=== PATIENT | female | born 1950 | race Caucasian/White ===

== ENCOUNTER 2018-06-10 11:30 | Outpatient (RCR) | payer OTHER, MEDICARE, SELFPAY ==
--- NOTE | 2018-05-28 15:27 | HP.PTEVAL ---
Patient's Visit Information TOBI HOSKINS is a 68 year old F referred to Physical Therapy by RIK ROMERO with a diagnosis of Lumbar Pain. Date of Evaluation: 05/28/18 Physical Therapist: Sandra Lacey - Visit Plan Frequency: 2x /Week Duration: 6 Weeks Plan: Focus on core s/s and movement- manual as needed - Subjective Subjective: Patient reports that she has been going to pain management for years- she is always told that she is really tight. Initial back injury was years ago low back- ended up having a fusion in 2004- through [employer]. 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 The right leg was affected and went to ER- went through therapy, injections and finally had a spinal fusion. It helped a lot- not perfect but is much better- is not dragging her right leg. Agg: cold damp weather, sitting to long, stand to long, lay to long (60 minutes). Worst: 9/10 Best: 5/10 Eases: TENS unit and a heating pad a lot, changing positions. Pain is located in the low back and radiates down the right leg to the knee. Describes pain as dull and achy- N/T down the right leg. Feels like her foot or toes are tingly- N/T comes and goes. No changes in mireille or bladder-Sleep: medication but it only works for about 4 hours then she gets up and goes to the bathroom every 2 hours. 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 PMhx/Meds:no changes- see scanned in chart. - Objective Posture: Fh, RS, increased kyphosis- patient can correct with verbal and tactile cues but does not maintain. Gait: no deviation noted- good arm swing and trunk rotation. Stairs: asc/desc 8 reip with 1 HR. HR/TR: able bilaterally with UE A for balance. SLS: 4 seconds on the left and 3 seconds on the right before UE A required. ROM: Lumbar- flexion: to mid thigh, Extn: decreased by 75%, SB: decreased by 50%, Rot: decreased by 50% reports pain in all ranges. Hip: flexion: 90 degrees, Abd/Ir/ER: WNL, Knee: WNL, Ankle: WNL. Sensation/Reflex: WNL. Strength: Ankle: 4+/5, Knee: 5/5, Hip: 4-5/ throughout with pain, Core: poor. Flex: HS: severe, Gastroc: moderate. Special Test: Slump positive on right. Palpation: tender along paraspinals of the lumbar spine into the gluts bilaterally - Goals Goal 1:: Patient will be I with HEP and progression Goal Time Frame: 4-6 Weeks Goal 2:: Patient will maintain proper posture t/o tx session Goal Time Frame: 4-6 Weeks Goal 3:: Patient will report 3/10 pain for 1 week Goal Time Frame: 4-6 Weeks - Rehabilitation Potential Physical Therapy Diagnosis: Patient presents with hypomobility- she has decreased ROM, strength and muscular endurance leading to pain with ADL's. Rehabilitation Potential: Fair - Anticipated Interventions Patient/Client Instruction: Educate patient on: Benefits of Fitness Program Therapeutic Exercise to Include: Strength training, Endurance training, Balance training, Agility training, Body mechanics, Postural training, Flexibilty training, Gait and locomotor training, Passive ROM, Active ROM, Dynamic Lumbar Stabilization, Scapular Strength/Stabilization For the Purpose of:: To improve muscle performance and motor function TENS: No - Has one at home Cryotherapy (ice pack, ice massage): Yes Thermo therapy (hot pack): Yes Ultrasound (thermal/non thermal): No - Lumbar Fusion 2004 Thank you for the opportunity to evaluate your patient. For Medicare and Medicare HMO plans, please review the plan of care and approve it. It will need to be FAXED BACK to us at [phone] for Medicare purposes. Please let me know if there are questions or concerns regarding this plan of care. Physician Signature: Date:
--- NOTE | 2018-07-18 10:52 | HP.PT.NRP ---
HP - Discharge Summary (1) - Patient Information TOBI HOSKINS was seen in my office for initial evaluation on 05/28/18. The following Plan of Care was established for this patient: Initial Frequency: 2x /Week Initial Duration: 6 Weeks - Anticipated Interventions Patient/Client Instruction: Educate patient on: Benefits of Fitness Program Therapeutic Exercise to Include: Strength training, Endurance training, Balance training, Agility training, Body mechanics, Postural training, Flexibilty training, Gait and locomotor training, Passive ROM, Active ROM, Dynamic Lumbar Stabilization, Scapular Strength/Stabilization For the Purpose of:: To improve muscle performance and motor function TENS: No - Has one at home Cryotherapy (ice pack, ice massage): Yes Thermo therapy (hot pack): Yes Ultrasound (thermal/non thermal): No - Lumbar Fusion 2004 This patient was last seen in our office . Pertinent comments regarding their Physical therapy will appear below: Patient cancelled all PT appts and plans to do massage therapy instead. At this point I will be discontinuing this patient from physical therapy. I would be happy to see this patient again in the future if found appropriate by the physician. Thank you! LINDSEY PoeT
--- NOTE | 2018-07-18 16:16 | MASS.EVAL ---
Massage Therapy Evaluation: Initial Evaluation Date: 06/06/2018 SUBJECTIVE: Marjorie is a 68 year old male who was referred to the [facility] facility for a massotherapy evaluation by Dr. Morgan with the diagnosis of low back pain. Marjorie presents today with the symptoms of tension and pain in his mid-low back from a previous injury. she also complains of pain that goes to her hip and into legs. She reports having the increased low back symptoms for a few weeks and that the weather effects the pain. She also reports some days are worse then others. OBJECTIVE: Upon observation the patient to have poor posture in sitting and standing. After examination and palpation I found Marjorie to have very high muscle tension with tenderness and myofascial restrictions in her lumbar paraspinals. Her QL?s, hips including glute medius and minimus all were very tight with fascial restrictions, tender points and trigger points. The first treatment consisted of a 30 minute massage to her lumbar area with myofascial release, muscle stripping and trigger point compression techniques. ASSESSMENT: I feel that Marjorie is a good candidate for massotherapy at this time. She had a favorable response to the first treatment with slight reduction in her muscle aches, pain and tension. She easily relaxed and was able to tolerate moderate pressure PLAN: The plan of care was reviewed with the patient. The patient is to be seen 2-3 times a week till 07/15/18.
--- NOTE | 2018-07-18 16:29 | DS.PCM_ITS ---
Massage Therapy Discharge Summary: Discharge Date: 07/18/2018 Marjorie was seen for a massotherapy evaluation on 06/06/2018 with the diagnosis of low back pain. She was treated with one sessions of massage therapy consisting of moderate pressure soft tissue techniques, myofascial release and trigger point compression to her lumbar region and hips. Marjorie responded well to the therapy by reporting decreased tension in her lower back and hips. Her goals for therapy were not met throughout the treatment sessions due to not scheduling more appointments within the time frame given. At this time this patient is being discharged from our care at [facility] facility.
== END 2018-06-10 19:00 | disposition home or self-care (01) ==
LOC: PT 11:30
PROVIDERS: Family Provider Internal Medicine; PCP Internal Medicine
DX: M51.36 Other intervertebral disc degeneration, lumbar region (principal)
CPT/HCPCS: 97110; 97124; 97162

== ENCOUNTER 2018-06-16 13:24 | Emergency (ER) | payer MEDICARE, SELFPAY ==
[2018-06-16 13:25] VITALS: BP 152/75; PULSE 96; RESP 16; TEMP 37.1; O2SAT 95; BMI 27.4
--- NOTE | 2018-06-16 13:50 | VDLE_ITS ---
Reason For Study: LLE Pain RIGHT LEFT CFV is compressible, spontaneous, phasic, GSV is normal. competent and demonstrates normal CFV is compressible, spontaneous, phasic, augmentation. competent, and demonstrates normal Procedure augmentation. Exam performed portable in ED. FV is compressible, spontaneous, phasic, A preliminary report was called and/or faxed competent and demonstrates normal to Dr. Alexander. augmentation. POP V is compressible, spontaneous, phasic, competent and demonstrates normal augmentation. T/P Trunk is compressible. PTV is compressible. LT PerV is compressible. <> Interpretation Summary Deep veins of the left lower extremity are patent and compressible segmentally. There is no evidence of left lower extremity deep vein thrombosis. Valvular competence appears intact within the proximal deep venous system on the left . The left greater saphenous vein appears patent and compressible segmentally. Ordering Physician: Marshal Alexander Referring Physician: Preethi Pulido Performed By: Keri Albarado, JEO, RVT
--- NOTE | 2018-06-16 13:53 | ED.VISSUMM ---
- ER Visit Summary Date of Service: 06/16/18 Chief Complaint: Atraumatic left thigh pain. History of Present Illness: The patient is a 68 F history of reflux and hypertension. Patient is never had any surgery to her left lower extremity. She denies any recent trauma. For the last 6 weeks he has had several episodes of intermittent thigh pain. Denies any fever, redness or swelling. No calf pain or calf swelling. No numbness or tingling. She has chronic back pain but it is no worse. Patient is never had a DVT or PE in the past. She denies any recent travel, surgery, immobilization. No chest pain or shortness of breath. Physical Examination: Well-appearing female. Vital signs are stable afebrile. Pulse ox 95% on room air no signs of hypoxia. H EENT exam unremarkable. Neck nontender no lymphadenopathy. Lungs clear to auscultation bilaterally. Heart regular rhythm no murmur. Rate about 90. Abdomen soft nontender. Normal bowel sounds no peritoneal signs. Patient is moving all 4 extremities. Neurovascular intact. Equal symmetrical radial pulses. Palpable DP pulse. Left calf is nontender, no edema nor cords. She has full flexion-extension of the left hip, knee and ankle. Dorsi plantar flexion intact. Normal sensation. The left thigh has unremarkable appearance. Is not specifically tender. There is no bony deformity. No redness or warmth. No swelling or cords. Test Results: Noninvasive studies left lower extremity shows no blood clot. Emergency Department Course and Treatment: Discharge home. Follow-up with primary care physician. If not improving may need further imaging studies. Vista like there is been no trauma and no other concerning factors x-rays are unnecessary to Treatment Plan: Tylenol and/or Motrin for pain. Disposition: Discharge Impression: Acute left thigh pain of uncertain etiology This note was generated with shenzhoufu dictation software. It may contain incorrect words, spelling, and punctuation that were not noted in review of the chart prior to signing ED Disposition - Plan for ED Patient: Chief Complaint: Lower Extremity Injury Referrals: Preethi Pulido MD [Primary Care Provider] -
--- NOTE | 2018-06-16 15:04 | ED.DEP ---
ED Disposition - Plan for ED Patient: Disposition: Home or Assisted Living Chief Complaint: Lower Extremity Injury Referrals: Preethi Pulido MD [Primary Care Provider] - 1 Week if not improving Additional Instructions: Ultrasound your leg today was normal. No signs of any blood clots. Tylenol and/or Motrin for pain. Follow-up with your doctor if not improving may need to do other tests.
[2018-06-16] MEDS: HYDROcodone Bitartrate/Apap 5/325 Tablet PO (15:23)
--- OUTSIDE RECORDS SUMMARY | 2018-07-29 11:16 | XMS RPT_ITS ---
:1950 Author Organization OH[facility] Care Team Providers Name Role Phone Talampas, Cy Primary Care Unavailable Marshal Alexander Attending Unavailable RAEANN GARCIA Attending Unavailable RAEANN GARCIA Referring Unavailable Talampas, Cy Primary Care Unavailable MORGAN VILLELA Admitting Unavailable MORGAN VILLELA Attending Unavailable LAURA NUNEZ (EXECUTIVE DIRECTOR) Referring Unavailable LAURA NUNEZ (EXECUTIVE DIRECTOR) Attending Unavailable MORGAN VILLELA Referring Unavailable TALAMPAS, CY D Referring Unavailable TALAMPAS, CY D Attending Unavailable TALAMPAS, CY D Referring Unavailable TALAMPAS, CY D Referring Unavailable NEYHART FREDO COLEMANRE Attending Unavailable NEYHART COLEMAN, SONIA Referring Unavailable NEYHART COLEMAN, SONIA Attending Unavailable NEYHART COLEMAN, SONIA Referring Unavailable NEYHART COLEMAN, SONIA Referring Unavailable Hussain Lawton Attending Unavailable Talampas, Cy Primary Care Unavailable Hussain Lawton Attending Unavailable Talampas, Cy Primary Care Unavailable Hussain Lawton Attending Unavailable Talampas, Cy Primary Care Unavailable Hussain Lawton Attending Unavailable Talampas, Cy Primary Care Unavailable Hussain Lawton Attending Unavailable Talampas, Cy Primary Care Unavailable PROBLEMS PROBLEMS DATE TYPE CONDITION / CODE ATTENDING STATUS SOURCE 06/16/2018 Unknown M51.36 - Other RAEANN GARCIA Active [place] intervertebral disc Community degeneration, lumbar Hospital region / Repository M51.36(ICD-10) 05/03/2018 Active Encounter for NA Active [place] immunization / [facility] Main Z23(ICD-10) [place] Repository 04/22/2018 Active Encounter for NA Active [place] screening mammogram Clinic Main for malignant [place] neoplasm of breast / Repository Z12.31(ICD-10) 2018 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 [place] (current) drug Clinic Main therapy / [place] Z79.899(ICD-10) Repository 2018 Active Encounter for other NA Active [place] specified special Clinic Main examinations / [place] Z01.89(ICD-10) Repository 2018 Active Disorder of arteries NA Active [place] and arterioles, Clinic Main unspecified / [place] I77.9(ICD-10) Repository 11/22/2017 Admitting Unknown / JeredHussain Active [facility] Medical diagnosis UNK(Unknown) [facility] [place] Repository 07/02/2017 Active Gastro-esophageal VILLELA, Active [place] reflux disease [facility] Main without esophagitis [place] / K21.9(ICD-10) Repository 07/02/2017 Active Personal history of VILLELA, Active [place] colonic polyps / [facility] Main Z86.010(ICD-10) [place] Repository PROCEDURES PROCEDURES No Procedure Records FoundRESULTS RESULTS HISTORY PHYSICAL Observed: 07/07/2018 Status: COMPLETED Source: [place] 3:37 PM [facility]INIC [facility]IN [facility] REPOSITORY HNO ID: [id number] Author: Moriah aGrdner (Pa) Service: (none) Author Type: Physician Cooker Cleaner Type: HANDP Filed: 07/07/2018 3:38 PM Note Text: Pt's surgery changed to [facility]. No PACC needed. Moriah Gardner PA-C Electronically Signed VENOUS DUPLEX LOWER Observed: 06/18/2018 Status: F Source: [place] EXTREMITY 8:33 AM [facility] REPOSITORY [facility] Cardiovascular Services [address] [place] [address] Venous Duplex US, Unilateral 06/16/18 1405 MR#: [id number] Acct: [id number] Name: MARJORIE HOSKINS Rep #: [id number] : 1950 68 From: Ion You MD Attending Dr: Status: DEP ER Ordering Dr: Marshal Alexander MD Date: 06/16/18 Location: ED Sex: F C Admitted: Reason For Study: LLE Pain RIGHT LEFT CFV is compressible, spontaneous, phasic, GSV is normal. competent and demonstrates normal CFV is compressible, spontaneous, phasic, augmentation. competent, and demonstrates normal Procedure augmentation. Exam performed portable in ED. FV is compressible, spontaneous, phasic, A preliminary report was called and/or faxed competent and demonstrates normal to Dr. Alexander. augmentation. POP V is compressible, spontaneous, phasic, competent and demonstrates normal augmentation. T/P Trunk is compressible. PTV is compressible. LT PerV is compressible. <> Interpretation Summary Deep veins of the left lower extremity are patent and compressible segmentally. There is no evidence of left lower extremity deep vein thrombosis. Valvular competence appears intact within the proximal deep venous system on the left . The left greater saphenous vein appears patent and compressible segmentally. Ordering Physician: Marshal Alexander Referring Physician: Cy Pulido Performed By: Keri Albarado, JOE, RVT 06/18/18 0833 Date Ion You MD CC: Marshal Alexander MD; Cy Pulido MD Date Dictated: 06/16/18 1405 Date Transcribed: 06/18/18 08 Lease Picker: Signed DISCHARGE INSTRUCTION Observed: 06/16/2018 Status: F Source: [place] 5:03 PM [facility] REPOSITORY [facility] Medical Records Department [address] [place] [address] Discharge Instruction 06/16/18 1504 MR#: [id number] Acct: [id number] Name: MARCO HOSKINSORAFranchesca Redman Rep #: [id number] : 1950 68 From: Marshal Alexander MD PCP: Cy Pulido MD Status: DEP ER ED Disposition - Plan for ED Patient: Disposition: Home or Assisted Living Chief Complaint: Lower Extremity Injury Referrals: Cy Pulido MD [Primary Care Provider] - 1 Week if not improving Additional Instructions: Ultrasound your leg today was normal. No signs of any blood clots. Tylenol and/or Motrin for pain. Follow-up with your doctor if not improving may need to do other tests. What to do if you have Problems For any increased pain, shortness of breath, bleeding, nausea or vomiting, chest pain, or any unexpected problems, contact your Primary Care Provider. Call [facility] ([phone]) or report to the closest Emergency Room. Call 911 if necessary. 06/16/18 1703 <Electronically signed by Marshal Alexander MD> Date Marshal Alexander MD Cosigner Signature (If Indicated): Date CC: Cy Pulido MD EMERGENCY DEPARTMENT Observed: 06/16/2018 Status: F Source: [place] SUMMARY 5:03 PM [facility] REPOSITORY [facility] Medical Records Department [address] [place] [id number] Emergency Department Summary 06/16/18 1353 MR#: [id number] Acct: [id number] Name: MARJORIE HOSKINS Rep #: [id number] : 1950 68 From: Marshal Alexander MD PCP: Cy Pulido MD Status: [facility] ER - ER Visit Summary Date of Service: 06/16/18 Chief Complaint: Atraumatic left thigh pain. History of Present Illness: The patient is a 68 F history of reflux and hypertension. Patient is never had any surgery to her left lower extremity. She denies any recent trauma. For the last 6 weeks he has had several episodes of intermittent thigh pain. Denies any fever, redness or swelling. No calf pain or calf swelling. No numbness or tingling. She has chronic back pain but it is no worse. Patient is never had a DVT or PE in the past. She denies any recent travel, surgery, immobilization. No chest pain or shortness of breath. Physical Examination: Well-appearing female. Vital signs are stable afebrile. Pulse ox 95% on room air no signs of hypoxia. H EENT exam unremarkable. Neck nontender no lymphadenopathy. Lungs clear to auscultation bilaterally. Heart regular rhythm no murmur. Rate about 90. Abdomen soft nontender. Normal bowel sounds no peritoneal signs. Patient is moving all 4 extremities. Neurovascular intact. Equal symmetrical radial pulses. Palpable DP pulse. Left calf is nontender, no edema nor cords. She has full flexion- extension of the left hip, knee and ankle. Dorsi plantar flexion intact. Normal sensation. The left thigh has unremarkable appearance. Is not specifically tender. There is no bony deformity. No redness or warmth. No swelling or cords. Test Results: Noninvasive studies left lower extremity shows no blood clot. Emergency Department Course and Treatment: Discharge home. Follow-up with primary care physician. If not improving may need further imaging studies. [place] like there is been no trauma and no other concerning factors x-rays are unnecessary to Treatment Plan: Tylenol and/or Motrin for pain. Disposition: Discharge Impression: Acute left thigh pain of uncertain etiology This note was generated with [employer] dictation software. It may contain incorrect words, spelling, and punctuation that were not noted in review of the chart prior to signing ED Disposition - Plan for ED Patient: Chief Complaint: Lower Extremity Injury Referrals: Cy Pulido MD [Primary Care Provider] - What to do if you have Problems For any increased pain, shortness of breath, bleeding, nausea or vomiting, chest pain, or any unexpected problems, contact your Primary Care Provider. Call [facility] ([phone]) or report to the closest Emergency Room. Call 911 if necessary. 06/16/18 6382 <Electronically signed by Marshal Alexander MD> Date Marshal Alexander MD Cosigner Signature (If Indicated): Date CC: Cy Pulido MD PROGRESS Observed: 06/04/2018 Status: COMPLETED Source: [place] 1:53 PM [facility] MAIN CAMPUS REPOSITORY HNO ID: [id number] Author: Sonia Coleman Service: (none) Author Type: Physician Type: Progress Notes Filed: 06/04/2018 2:23 PM Note Text: Marjorie Hoskins is a 68 year old who presents for her annual gynecologic exam without complaints. 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 Postmenopausal: Yes HRT use: No. Last Pap: 2014 normal History of abnormal pap: No Last mammogram: 2017 normal History of abnormal mammogram: Yes - f/u view benign Sexually active: Yes History of STDS: None Patient concerns for STD exposure: No. Pain with intercourse: No Postcoital bleeding: yes- sometimes she has spotting. Hot flashes: occasional Night sweats: No Vaginal dryness: yes Exercise: Diet: balanced Obstetric History T0 L3 SAB0 TAB0 Ectopic0 Multiple0 Live Births0 PAST MEDICAL HISTORY Diagnosis Date - ANXIETY STATE NOS 01/15/2006 - Benign neoplasm of colon 02/2004 colon polyps - Carotid artery disease (HCC) MIld on Life Screening done Jul 04 2010 - Depressive disorder, not elsewhere classified - Diaphragmatic hernia without mention of obstruction or gangrene - DISC DEGENERATION NOS 06/18/2005 - Diverticulosis of colon (without mention of hemorrhage) - Esophageal reflux - [place] (hard of hearing) Wears bilateral hearing aids - Hypertension - INSOMNIA NOS 02/04/2006 - LUMB DISC DIS W MYELOPAT 06/20/2005 - Lung nodules Workup jeffy Cano PAST SURGICAL HISTORY Procedure Laterality Date - COLONOSCOP W/ OR W/O BRSH SPEC 02/28/2004 Colonoscopy, with bx. - COLONOSCOP W/ OR W/O BRSH SPEC 06/05/2012 Colonoscopy - COLONOSCOP W/ OR W/O BRSH SPEC 08/05/2017 Repeat Colon in 5 years - DANDC, DIAG AND/OR THERAPEUTIC 11/18/1997 Dilation AND curettage - EGD W/O BRS SPECIMEN W/BX 06/19/11 - EGD W/O [facility] SPECIMEN W/BX 07-09-11 - EGD W/O OR W/BRUSH/WASH , 02/28/2004 EGD - EGD W/O OR W/BRUSH/WASH 12/28/08 EGD - EGD W/O OR W/BRUSH/WASH 08/05/2017 EGD - G-ESOPH REFLX TST W/ELECTROD 07-09-11 - LIGATE FALLOPIAN TUBE 1979 Tubal ligation - PAST SURGICAL HISTORY OF fusion L4-L5 - PAST SURGICAL HISTORY OF Aug 2008 cholecystectomy (Dr. Padilla) - PAST SURGICAL HISTORY OF FNA-lung - PAST SURGICAL HISTORY OF right ear - [facility] N/CARPAL TUNNEL SURG 1988 Carpal tunnel decomp, bilat FAMILY HISTORY Problem Relation Age of Onset - Diabetes Father - Alcohol/Drug Father - Coronary Artery Disease Mother - Alcohol/Drug Mother - Cancer Maternal Grandfather lung - Heart Maternal Grandmother - other (Ovarian Cancer) Sister - Breast Cancer Sister - Diabetes Maternal Aunt one aunt with ESRD from DM--no on HD - Diabetes Other maternal cousins with DM - Ischemic Heart Disease Maternal Aunt in her 40's from heart attack - Cervical Cancer Sister SOCIAL HISTORY Social History Substance Use Topics - Smoking status: Former Smoker Packs/day: 2.00 Years: 35.00 Types: Cigarettes Quit date: 06/20/2003 - Smokeless tobacco: Never Used Comment: Quit 08/2002 - Alcohol use No REVIEW OF SYSTEMS Abdomen: No abdominal pain, nausea, vomiting, diarrhea,. ++ constipation No bloating, early satiety, indigestion, or increased flatulence. Bladder: No dysuria, gross hematuria, urinary frequency, urinary urgency, or incontinence- Frequency at night every 2-3 hrs Breast: No breast lumps, nipple d/c, overlying skin changes, redness or skin retraction Allergies and current medication updated:Yes EXAM: BP 160/80 Ht 5' 4.5 (1.64m) Wt 163 lb (73.9kg) BMI 27.56 kg/(m2). GENERAL: pleasant, female in no apparent distress HEENT: Normocephalic, atraumatic, mucus membranes moist and no lesions NECK: Supple, full range of motion, no adenopathy and thyroid normal DERMATOLOGY: Normal, without lesions, non-icteric and non-hirsute BREAST: soft, non-tender, symmetric, no dominant mass, normal nipple-areolar complex, no lymphadenopathy and no nipple discharge ABDOMEN: soft, non-tender and no masses PELVIC: external genitalia normal, normal Bartholin's glands, urethra, [place]'s glands, no vulvar lesions, no cervical lesions, good vaginal support, physiologic discharge present, normal appearing perineal body and perianal region BIMANUAL: uterus normal size, shape and consistency, no adnexal masses and non-tender RECTOVAGINAL: deferred. NEURO: alert and oriented x3,exam grossly non-focal EXTREMITIES: normal ASSESSMENT/PLAN: 1) Health maintenance: Pap/HPV screening no longer needed Mammogram ordered Mammogram up to date Nutrition, exercise and routine health maintenance exams reviewed. Calcium/Vitamin D supplementation information provided. Colon cancer screening: up to date with screening BMD: up to date 2) Follow up one year or sooner as needed Sonia Gil MD PROGRESS Observed: 06/04/2018 Status: COMPLETED Source: [place] 1:46 PM [facility] REPOSITORY HNO ID: [id number] Author: Pearl Angulo Ma Service: (none) Author Type: (none) Type: Progress Notes Filed: 06/04/2018 2:23 PM Note Text: Research Methods Instructor offered: Patient declines. DANIELA Observed: 06/04/2018 Status: COMPLETED Source: [place] 1:30 PM [facility] REPOSITORY Office Visit (WOOB) MARJORIE HOSKINS ([id number]) 1950 F Date Time Provider Department 06/04/18 1:30 PM SONIA JEONG During your visit today, we recorded the following information about you: Blood pressure Weight Height 160/80 73.9 kg 1.638 m Pearl Angulo Ma 06/04/2018 2:23 PM Signed Research Methods Instructor offered: Patient declines. Sonia Gil MD 06/04/2018 2:23 PM Signed Marjorie Hoskins is a 68 year old who presents for her annual gynecologic exam without complaints. 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 Postmenopausal: Yes HRT use: No. Last Pap: 2014 normal History of abnormal pap: No Last mammogram: 2017 normal History of abnormal mammogram: Yes - f/u view benign Sexually active: Yes History of STDS: None Patient concerns for STD exposure: No. Pain with intercourse: No Postcoital bleeding: yes- sometimes she has spotting. Hot flashes: occasional Night sweats: No Vaginal dryness: yes Exercise: Diet: balanced Obstetric History T0 L3 SAB0 TAB0 Ectopic0 Multiple0 Live Births0 PAST MEDICAL HISTORY Diagnosis Date - ANXIETY STATE NOS 01/15/2006 - Benign neoplasm of colon 02/2004 colon polyps - Carotid artery disease (HCC) MIld on Life Screening done Jul 04 2010 - Depressive disorder, not elsewhere classified - Diaphragmatic hernia without mention of obstruction or gangrene - DISC DEGENERATION NOS 06/18/2005 - Diverticulosis of colon (without mention of hemorrhage) - Esophageal reflux - [place] (hard of hearing) Wears bilateral hearing aids - Hypertension - INSOMNIA NOS 02/04/2006 - LUMB DISC DIS W MYELOPAT 06/20/2005 - Lung nodules Workup jeffy Cano PAST SURGICAL HISTORY Procedure Laterality Date - COLONOSCOP W/ OR W/O [facility] SPEC 02/28/2004 Colonoscopy, with bx. - COLONOSCOP W/ OR W/O BRS SPEC 06/05/2012 Colonoscopy - COLONOSCOP W/ OR W/O [facility] SPEC 08/05/2017 Repeat Colon in 5 years - DANDC, DIAG AND/OR THERAPEUTIC 11/18/1997 Dilation AND curettage - EGD W/O BRSH SPECIMEN W/BX 06/19/11 - EGD W/O BRSH SPECIMEN W/BX 07-09-11 - EGD W/O OR W/BRUSH/WASH , 02/28/2004 EGD - EGD W/O OR W/BRUSH/WASH 12/28/08 EGD - EGD W/O OR W/BRUSH/WASH 08/05/2017 EGD - G-ESOPH REFLX TST W/ELECTROD 07-09-11 - LIGATE [place]ALLOPIAN TUBE 1979 Tubal ligation - PAST SURGICAL HISTORY OF fusion L4-L5 - PAST SURGICAL HISTORY OF Aug 2008 cholecystectomy (Dr. Padilla) - PAST SURGICAL HISTORY OF FNA-lung - PAST SURGICAL HISTORY OF right ear - REVISE MEDIAN N/CARPAL TUNNEL SURG 1988 Carpal tunnel decomp, bilat FAMILY HISTORY Problem Relation Age of Onset - Diabetes Father - Alcohol/Drug Father - Coronary Artery Disease Mother - Alcohol/Drug Mother - Cancer Maternal Grandfather lung - Heart Maternal Grandmother - other (Ovarian Cancer) Sister - Breast Cancer Sister - Diabetes Maternal Aunt one aunt with ESRD from DM--no on HD - Diabetes Other maternal cousins with DM - Ischemic Heart Disease Maternal Aunt in her 40's from heart attack - Cervical Cancer Sister SOCIAL HISTORY Social History Substance Use Topics - Smoking status: Former Smoker Packs/day: 2.00 Years: 35.00 Types: Cigarettes Quit date: 06/20/2003 - Smokeless tobacco: Never Used Comment: Quit 08/2002 - Alcohol use No REVIEW OF SYSTEMS Abdomen: No abdominal pain, nausea, vomiting, diarrhea,. ++ constipation No bloating, early satiety, indigestion, or increased flatulence. Bladder: No dysuria, gross hematuria, urinary frequency, urinary urgency, or incontinence- Frequency at night every 2-3 hrs Breast: No breast lumps, nipple d/c, overlying skin changes, redness or skin retraction Allergies and current medication updated:Yes EXAM: BP 160/80 Ht 5' 4.5 (1.64m) Wt 163 lb (73.9kg) BMI 27.56 kg/(m2). GENERAL: pleasant, female in no apparent distress HEENT: Normocephalic, atraumatic, mucus membranes moist and no lesions NECK: Supple, full range of motion, no adenopathy and thyroid normal DERMATOLOGY: Normal, without lesions, non-icteric and non-hirsute BREAST: soft, non-tender, symmetric, no dominant mass, normal nipple-areolar complex, no lymphadenopathy and no nipple discharge ABDOMEN: soft, non-tender and no masses PELVIC: external genitalia normal, normal Bartholin's glands, urethra, [place]'s glands, no vulvar lesions, no cervical lesions, good vaginal support, physiologic discharge present, normal appearing perineal body and perianal region BIMANUAL: uterus normal size, shape and consistency, no adnexal masses and non-tender RECTOVAGINAL: deferred. NEURO: alert and oriented x3,exam grossly non-focal EXTREMITIES: normal ASSESSMENT/PLAN: 1) Health maintenance: Pap/HPV screening no longer needed Mammogram ordered Mammogram up to date Nutrition, exercise and routine health maintenance exams reviewed. Calcium/Vitamin D supplementation information provided. Colon cancer screening: up to date with screening BMD: up to date 2) Follow up one year or sooner as needed MD Sonia Cheung MD 06/04/2018 1:53 PM Signed Calcium and Vitamin D Supplementation (from the National Institutes of Health Office of Dietary Supplements 2010) Calcium is required by the body for blood vessel, muscle, hormone and nerve functioning. Most of the body's calcium is stored in the bones and teeth where it supports structure and function. Bone is continuously broken down and reformed. When bone breakdown exceeds formation, especially in postmenopausal women, bone loss can increase the risk of osteoporosis and fractures. In addition to low calcium intake, women who smoke, have a family history of osteoporosis, are thin, or , or who take certain medications such as cancer chemotherapy, seizure mediations and steroids are at increased risk of osteoporosis. The calcium requirements in women change with age. The National Institutes of Health (NIH) recommends: 1000mg elemental calcium for premenopausal women age 19-50 1200mg elemental calcium for postmenopausal women and all women over 50 Milk, yogurt, and cheese are rich natural sources of calcium and are the major food contributors in the [place]. For example, 8oz of milk (whole, lowfat or skim) contains about 300mg calcium, 8oz of yogurt contains 415mg. Nondairy sources include salmon and sardines and vegetables, such as [place] cabbage, kale, and broccoli. Foods fortified with calcium include many fruit juices, tofu and cereals. For more food calcium content information, visit http://ods.od.nih.gov/factsheets/calcium. Calcium supplements come in several different forms. Remember that the recommendations are for millgrams (mg) of elemental calcium which may be less than the total weight of the supplement. The amount of elemental calcium is required to be printed on the label. Calcium carbonate is the least expensive form. It must be taken on a full stomach to be properly absorbed. Some patients may experience gas or constipation. Calcium phosphate and calcium citrate may be taken either with or without food and tend to have less side effects but are generally more expensive. Because of its ability to neutralize stomach acid, calcium carbonate is found in some pdex-moy-ybsenex antacid products, such as Tums? and Rolaids?. Depending on its strength, each chewable pill or softchew provides 200 to 400 mg of elemental calcium. The percentage of calcium absorbed depends on the total amount of elemental calcium consumed at one time. Absorption is highest in doses <500mg. So a woman who takes 1,000mg/day of calcium from supplements should split the dose and take 500mg at two separate times during the day. Too much calcium can cause kidney stones, constipation, difficulty absorbing other nutrients and calcium buildup in blood vessels. Women under 50 should not exceed 2500mg/day (2000mg/day for women over 50) of calcium from food and supplements. Excessive alcohol and caffeine intake can inhibit absorption of calcium. Calcium can reduce the absorption of some medications if taken at the same time of day (bisphosphonates, thyroid medication, Phenytoin and other seizure medications, some antibiotics and iron supplements). Vitamin D promotes calcium absorption in the gut and maintains adequate blood levels of calcium and phosphate for normal bone growth and bone remodeling. Vitamin D also helps regulate cell growth as well as nerve, muscle and immune system function. Vitamin D is produced in the skin as a result of ultraviolet sunlight rays and must be altered in the liver and kidney to become its active form. Recommended intake according to the National Institutes of Health is 600 International Units (IU) for girls and women ages 1-70 and 800 IU for women over 70. Very few foods in nature contain vitamin D. The flesh of fatty fish (such as salmon, tuna, and mackerel) and fish liver oils are among the best sources. Small amounts of vitamin D are found in beef liver, cheese, mushrooms and egg yolks. Most people meet at least some of their vitamin D needs through exposure to sunlight. Season, time of day, length of day, cloud cover, smog, skin melanin content, and sunscreen are among the factors that affect UV radiation exposure and vitamin D synthesis. Despite the importance of the sun for vitamin D synthesis, it is prudent to limit exposure of skin to sunlight and avoid tanning beds. UV radiation is a carcinogen responsible for most of the estimated 1.5 million skin cancers that occur annually in the [place]. Lifetime cumulative UV damage to skin is also responsible for some age-associated dryness and other cosmetic changes. In supplements and fortified foods, vitamin D is available in two forms, D2 (ergocalciferol) and D3 (cholecalciferol). The two are equivalent at normal supplement doses. For women who require high supplement doses because of vitamin D deficiency, D3 may work better to raise blood levels. Some medications can prevent proper absorption of Vitamin D. These include laxatives, corticosteroids like prednisone, the seizure drugs phenobarbital and phenytoin, the weight-loss drug orlistat ( Xenical? and AlliTM) and the cholesterol-lowering drug cholestyramine (Questran?, LoCholest?, and Prevalite?). Talk to your doctor about adjusting your recommended daily vitamin D dosage if you take these medications. You should not exceed 4000 mg of vitamin D supplementation daily unless specifically prescribed by your doctor. ACOG Screening Guidelines (2015) The following health screening schedule is recommended by the [employer] (ACOG). Some of these tests may be ordered or performed by your primary care doctor. Pap test screening The pap test looks at cells on the cervix (the opening from the vagina to the uterus) to look for cancer or pre-cancerous changes. These changes are caused by the human papillomavirus (HPV). Studies estimate that half of all women will test positive for this virus within 3 years of starting sexual activity. For young women with a normal immune system, 90% of HPV infections will resolve within 2 years. There is a vaccine available against some forms of HPV. This is recommended for girls and women age 9-26 and is a series of 3 injections over 6 months. Because this vaccine does not protect against all HPV types which can cause cervical cancer, women who received the vaccine still need pap tests. Pap smear screening should be started at age 21. The pap test should be done every 3 years from age 21-29. From age 30-65, pap smears can be done every 5 years if HPV test is negative or every 3 years if HPV testing is not done. For women over the age of 65, ACOG recommends against screening women who have had adequate prior screening and are not otherwise at high risk for cervical cancer. Women who have had a hysterectomy also do not need routine pap smear screening unless the pap smear was done for a cervical cancer or moderate to severe dysplasia. Breast cancer screening Mammogram should be performed every 1-2 years starting at age 40 and every year starting at age 50. Screening may be started earlier depending on family history. Cholesterol screening Lipid panel (cholesterol test) should be checked every 5 years starting at age 45. Diabetes screening Fasting glucose (blood sugar) test should be performed every 3 years starting at age 45. Colorectal cancer screening Starting at age 50, women should have a screening colonoscopy at least every 10 years. Screening may be started earlier depending on family history. Thyroid screening Thyroid function test (TSH) should be checked every 5 years starting at age 50. Bone mineral density screening All postmenopausal women age 65 and over and postmenopausal women with risk factors for osteoporosis should have a bone mineral density test performed. Risk factors include race, family history of osteoporosis, personal history of fractures, poor nutrition, smoking, heavy alcohol use, early menopause, low calcium intake and low body weight. Certain medical conditions and long-term use of some medications may also increase risk. How To Perform Pelvic Floor (Kegel) Exercises These exercises help to strengthen the pelvic floor muscles and can help improve bladder control for women. 1. You should have been instructed in the office how to contract these muscles. At home, you can insert two fingers in the vagina and feel the contraction of these muscles as you squeeze. We call these muscles the ?pelvic floor? because they help support the pelvic organs, especially during coughing and sneezing. Squeezing the pelvic floor while standing feels like you are ?lifting? the area around the vagina, and will interrupt the stream of urine while voiding. Once you are certain which muscles to use, do not exercise while urinating. Make sure you are not bearing down, squeezing your buttocks, or straining abdominally: these are not the muscles to be exercised. You may wish to place hands on your buttock muscles to keep these muscles relaxed while performing the exercises. 2. Squeeze these muscles as hard as you can for a slow count of five, eventually working up to a slow count of ten. Rest for 15 seconds, and then start another contraction. At first. these muscles may feel sore, just as other muscles may feel sore after exercise. 3. You should perform 50 squeezes every day: make sure every squeeze count by pablo as hard as you can! Many women try to do these exercises in sets of five or ten at a time. Remind yourself to do these exercises by starting them every time you are waiting at a red light, watching a television commercial, or ?on hold? on the telephone. If you are having trouble concentrating, you may want to set aside a special time to perform sets of pelvic floor exercises. 4. In addition to the long, hard contractions you are doing try doing some ?quick flicks? of these muscles throughout the day. 5. You should be seen in the office after starting these exercises to make sure you are performing the contraction correctly: you may have never known how to contract these muscles before starting pelvic floor exercises, and many patients mistakenly exercise the wrong muscles. If you still feel frustrated about which muscles to use ask us for help. There are physical therapy specialists who work with pelvic floor muscles. 6. Work hard! As with any exercise program, improvement often is related to how faithfully you adhere to your exercise program. Pelvic floor exercises do not have the side effects and expense associated with other treatments for urinary incontinence, and have been known to help with severe stress incontinence. It may take several months to see the full effect of your exercise program: if you are easily discouraged, see your doctor or doctor at regular visits to assess what progress you are making. Techniques to avoid urinary accidents: Empty your bladder regularly and prior to physical activity. Avoid activity that causes leakage, if possible. Avoid or moderate the intake of alcohol and caffeine products. Try to restrict fluids prior to planned activities. Wear appropriate protection. Prevent chronic coughing which can cause a loss of urinary control. Ways to prevent chronic coughing include treating asthma, restricting smoking, and removing allergy-causing agents from your environment. Many women experience vaginal dryness which can cause discomfort with exercise and sexual activity, especially vaginal intercourse. Common causes of vaginal dryness include menopause, , control pills, cancer treatments and other medications. There are many rwpw-fat-ursokai products that are available to treat this condition. Lubricants are a temporary measure to minimize friction and irritation and allow for vaginal intercourse. There are different types of lubricants. Water-based lubricants dry quickly and usually will need to be reapplied during sexual activity. Oil-based lubricants are not compatible with condoms. Silicone-based lubricants should be used with caution in the shower as they can make floors slippery. Household food oils such as olive oil, coconut oil, corn oil and Cristco may increase the risk of vaginal infections such as bacterial vaginosis and yeast. Pre-seed is designed for patients trying to conceive as it does not affect sperm motility. You may need to try several different brands of lubricant until you find the one that works best for you. When choosing a lubricant, avoid those that contain perfumes, flavors or ?warming? ingredients. Benzyl alcohol and glycerin can cause drying and irritation and parabens may be harmful to health. Look for 510(k) Clearance which means that all ingredients are considered safe by the FDA. You can search for approved products on the FDA website at http://www.accessdata.fda.gov/scripts/cdrh/cfdocs/cfpmn/pmn.cfm. Examples of 510(k) cleared lubricants include Uberlube, Sylk, Good Clean Love and Astroglide. Vaginal moisturizers such as Luvena and Replens are designed for regular use several times a week for long-term relief of vaginal dryness. Some formulations contain a pre-biotic to help maintain vaginal pH and protect against bacterial vaginosis and yeast. For post-menopausal women who have persistent vaginal dryness, prescription treatments are available including vaginal estrogen and vaginal laser therapy. Talk to your doctor if your symptoms are not resolved by lubricant or moisturizer use. Referring Provider: SONIA JEONG [[id number]] Allergies As of Date: 06/04/2018 Noted Allergy Reaction OXYCODONE HCL 10/18/2014 9 - Itching PERCOCET (OXYCODONE-ACETAMINOPHEN)01/17/2007 9 - Itching Date Reviewed: 06/04/2018 Reviewed by: Pearl Angulo Ma - Fully Assessed Reason for Visit: Yearly Exam [187] Primary Visit Diagnosis:Encounter for gynecological examination without abnormal finding [Z01.419] Other Visit Diagnoses:Encounter for screening for malignant neoplasm of cervix [Z12.4] Encounter for screening mammogram for malignant neoplasm of breast [Z12.31] PCB (post coital bleeding) [N93.0] Order(s):JASEN SCREENING [[id number]] Order #: [id number] FUTURE PELVIC US WHI [[id number]] Order #: [id number]: 1 Prescriptions as of 06/04/2018 Sig: HYDROMORPHONE ER 32 MG TABLET* Take 1 tablet by mouth once d* HYDROMORPHONE 8 MG TABLET Take 8 mg by mouth every 6 ho* NIFEDIPINE ER 30 MG TABLET,EX* Take 1 tablet by mouth once d* SIMVASTATIN 40 MG TABLET Take 1 tablet by mouth daily * ESOMEPRAZOLE MAGNESIUM 40 MG * Take 1 capsule by mouth once * ZOLPIDEM 5 MG TABLET Problem List As Of Date 06/04/2018 Noted Resolved DISC DEGENERATION NOS [CGW7654] INVALID FOR* LUMB DISC DIS W MYELOPAT [M51.06] INVALID FOR* DEPRESSIVE DISORDER NEC [F32.9] INVALID FOR* ANXIETY STATE NOS [F41.1] INVALID FOR* Insomnia [G47.00] INVALID FOR* LATERAL EPICONDYLITIS RIGHT [M77.10] INVALID FOR* Abnormal weight gain [R63.5] INVALID FOR*12/24/2011 Esophageal reflux [K21.9] INVALID FOR* More... BACKACHE NOS [M54.9] INVALID FOR* ACUTE CHOLECYSTITIS [K81.0] INVALID FOR* Acute gastritis without mention of hemorrhage [*INVALID FOR*04/25/2016 Lung nodules [R91.8] More... Plantar Wart: L foot plantar medial mid heel [B*INVALID FOR* Cryosurgical Scar of skin of plantar L foot [L9*INVALID FOR* Kidney stone on right side [N20.0] INVALID FOR*02/14/2011 More... 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 Feeling of incomplete bladder emptying [R39.14] INVALID FOR* Urinary incontinence [R32] INVALID FOR* More... Raynaud's phenomenon without gangrene [I73.00] INVALID FOR* More... Trigger ring finger of right hand [M65.341] INVALID FOR* Dupuytren's disease of palm [M72.0] INVALID FOR* Breast lump on left side at 9 o'clock position *INVALID FOR* Therapeutic opioid-induced constipation (OIC) [*INVALID FOR* More... Gastroesophageal reflux disease without esophag*INVALID FOR* More... History of colonic polyps [Z86.010] INVALID FOR* More... Hyperlipidemia [E78.5] INVALID FOR* Other instructions from your clinician: Calcium and Vitamin D Supplementation (from the National Institutes of Health Office of Dietary Supplements 2011) Calcium is required by the body for blood vessel, muscle, hormone and nerve functioning. Most of the body's calcium is stored in the bones and teeth where it supports structure and function. Bone is continuously broken down and reformed. When bone breakdown exceeds formation, especially in postmenopausal women, bone loss can increase the risk of osteoporosis and fractures. In addition to low calcium intake, women who smoke, have a family history of osteoporosis, are thin, or , or who take certain medications such as cancer chemotherapy, seizure mediations and steroids are at increased risk of osteoporosis. The calcium requirements in women change with age. The National Institutes of Health (NIH) recommends: 1000mg elemental calcium for premenopausal women age 19-50 1200mg elemental calcium for postmenopausal women and all women over 50 Milk, yogurt, and cheese are rich natural sources of calcium and are the major food contributors in the [place]. For example, 8oz of milk (whole, lowfat or skim) contains about 300mg calcium, 8oz of yogurt contains 415mg. Nondairy sources include salmon and sardines and vegetables, such as [place] cabbage, kale, and broccoli. Foods fortified with calcium include many fruit juices, tofu and cereals. For more food calcium content information, visit http://ods.od.nih.gov/factsheets/calcium. Calcium supplements come in several different forms. Remember that the recommendations are for millgrams (mg) of elemental calcium which may be less than the total weight of the supplement. The amount of elemental calcium is required to be printed on the label. Calcium carbonate is the least expensive form. It must be taken on a full stomach to be properly absorbed. Some patients may experience gas or constipation. Calcium phosphate and calcium citrate may be taken either with or without food and tend to have less side effects but are generally more expensive. Because of its ability to neutralize stomach acid, calcium carbonate is found in some nhuq-jab-fqqfhsd antacid products, such as Tums? and Rolaids?. Depending on its strength, each chewable pill or softchew provides 200 to 400 mg of elemental calcium. The percentage of calcium absorbed depends on the total amount of elemental calcium consumed at one time. Absorption is highest in doses <500mg. So a woman who takes 1,000mg/day of calcium from supplements should split the dose and take 500mg at two separate times during the day. Too much calcium can cause kidney stones, constipation, difficulty absorbing other nutrients and calcium buildup in blood vessels. Women under 50 should not exceed 2500mg/day (2000mg/day for women over 50) of calcium from food and supplements. Excessive alcohol and caffeine intake can inhibit absorption of calcium. Calcium can reduce the absorption of some medications if taken at the same time of day (bisphosphonates, thyroid medication, Phenytoin and other seizure medications, some antibiotics and iron supplements). Vitamin D promotes calcium absorption in the gut and maintains adequate blood levels of calcium and phosphate for normal bone growth and bone remodeling. Vitamin D also helps regulate cell growth as well as nerve, muscle and immune system function. Vitamin D is produced in the skin as a result of ultraviolet sunlight rays and must be altered in the liver and kidney to become its active form. Recommended intake according to the National Institutes of Health is 600 International Units (IU) for girls and women ages 1-70 and 800 IU for women over 70. Very few foods in nature contain vitamin D. The flesh of fatty fish (such as salmon, tuna, and mackerel) and fish liver oils are among the best sources. Small amounts of vitamin D are found in beef liver, cheese, mushrooms and egg yolks. Most people meet at least some of their vitamin D needs through exposure to sunlight. Season, time of day, length of day, cloud cover, smog, skin melanin content, and sunscreen are among the factors that affect UV radiation exposure and vitamin D synthesis. Despite the importance of the sun for vitamin D synthesis, it is prudent to limit exposure of skin to sunlight and avoid tanning beds. UV radiation is a carcinogen responsible for most of the estimated 1.5 million skin cancers that occur annually in the [place]. Lifetime cumulative UV damage to skin is also responsible for some age-associated dryness and other cosmetic changes. In supplements and fortified foods, vitamin D is available in two forms, D2 (ergocalciferol) and D3 (cholecalciferol). The two are equivalent at normal supplement doses. For women who require high supplement doses because of vitamin D deficiency, D3 may work better to raise blood levels. Some medications can prevent proper absorption of Vitamin D. These include laxatives, corticosteroids like prednisone, the seizure drugs phenobarbital and phenytoin, the weight-loss drug orlistat ( Xenical? and AlliTM) and the cholesterol-lowering drug cholestyramine (Questran?, LoCholest?, and Prevalite?). Talk to your doctor about adjusting your recommended daily vitamin D dosage if you take these medications. You should not exceed 4000 mg of vitamin D supplementation daily unless specifically prescribed by your doctor. ACOG Screening Guidelines (2015) The following health screening schedule is recommended by the [employer] ([employer]OG). Some of these tests may be ordered or performed by your primary care doctor. Pap test screening The pap test looks at cells on the cervix (the opening from the vagina to the uterus) to look for cancer or pre-cancerous changes. These changes are caused by the human papillomavirus (HPV). Studies estimate that half of all women will test positive for this virus within 3 years of starting sexual activity. For young women with a normal immune system, 90% of HPV infections will resolve within 2 years. There is a vaccine available against some forms of HPV. This is recommended for girls and women age 9-26 and is a series of 3 injections over 6 months. Because this vaccine does not protect against all HPV types which can cause cervical cancer, women who received the vaccine still need pap tests. Pap smear screening should be started at age 21. The pap test should be done every 3 years from age 21-29. From age 30-65, pap smears can be done every 5 years if HPV test is negative or every 3 years if HPV testing is not done. For women over the age of 65, ACOG recommends against screening women who have had adequate prior screening and are not otherwise at high risk for cervical cancer. Women who have had a hysterectomy also do not need routine pap smear screening unless the pap smear was done for a cervical cancer or moderate to severe dysplasia. Breast cancer screening Mammogram should be performed every 1-2 years starting at age 40 and every year starting at age 50. Screening may be started earlier depending on family history. Cholesterol screening Lipid panel (cholesterol test) should be checked every 5 years starting at age 45. Diabetes screening Fasting glucose (blood sugar) test should be performed every 3 years starting at age 45. Colorectal cancer screening Starting at age 50, women should have a screening colonoscopy at least every 10 years. Screening may be started earlier depending on family history. Thyroid screening Thyroid function test (TSH) should be checked every 5 years starting at age 50. Bone mineral density screening All postmenopausal women age 65 and over and postmenopausal women with risk factors for osteoporosis should have a bone mineral density test performed. Risk factors include race, family history of osteoporosis, personal history of fractures, poor nutrition, smoking, heavy alcohol use, early menopause, low calcium intake and low body weight. Certain medical conditions and long-term use of some medications may also increase risk. How To Perform Pelvic Floor (Kegel) Exercises These exercises help to strengthen the pelvic floor muscles and can help improve bladder control for women. 1. You should have been instructed in the office how to contract these muscles. At home, you can insert two fingers in the vagina and feel the contraction of these muscles as you squeeze. We call these muscles the ?pelvic floor? because they help support the pelvic organs, especially during coughing and sneezing. Squeezing the pelvic floor while standing feels like you are ?lifting? the area around the vagina, and will interrupt the stream of urine while voiding. Once you are certain which muscles to use, do not exercise while urinating. Make sure you are not bearing down, squeezing your buttocks, or straining abdominally: these are not the muscles to be exercised. You may wish to place hands on your buttock muscles to keep these muscles relaxed while performing the exercises. 2. Squeeze these muscles as hard as you can for a slow count of five, eventually working up to a slow count of ten. Rest for 15 seconds, and then start another contraction. At first. these muscles may feel sore, just as other muscles may feel sore after exercise. 3. You should perform 50 squeezes every day: make sure every squeeze count by pablo as hard as you can! Many women try to do these exercises in sets of five or ten at a time. Remind yourself to do these exercises by starting them every time you are waiting at a red light, watching a television commercial, or ?on hold? on the telephone. If you are having trouble concentrating, you may want to set aside a special time to perform sets of pelvic floor exercises. 4. In addition to the long, hard contractions you are doing try doing some ?quick flicks? of these muscles throughout the day. 5. You should be seen in the office after starting these exercises to make sure you are performing the contraction correctly: you may have never known how to contract these muscles before starting pelvic floor exercises, and many patients mistakenly exercise the wrong muscles. If you still feel frustrated about which muscles to use ask us for help. There are physical therapy specialists who work with pelvic floor muscles. 6. Work hard! As with any exercise program, improvement often is related to how faithfully you adhere to your exercise program. Pelvic floor exercises do not have the side effects and expense associated with other treatments for urinary incontinence, and have been known to help with severe stress incontinence. It may take several months to see the full effect of your exercise program: if you are easily discouraged, see your doctor or doctor at regular visits to assess what progress you are making. Techniques to avoid urinary accidents: Empty your bladder regularly and prior to physical activity. Avoid activity that causes leakage, if possible. Avoid or moderate the intake of alcohol and caffeine products. Try to restrict fluids prior to planned activities. Wear appropriate protection. Prevent chronic coughing which can cause a loss of urinary control. Ways to prevent chronic coughing include treating asthma, restricting smoking, and removing allergy-causing agents from your environment. Many women experience vaginal dryness which can cause discomfort with exercise and sexual activity, especially vaginal intercourse. Common causes of vaginal dryness include menopause, , control pills, cancer treatments and other medications. There are many mlrp-emt-zuovscb products that are available to treat this condition. Lubricants are a temporary measure to minimize friction and irritation and allow for vaginal intercourse. There are different types of lubricants. Water-based lubricants dry quickly and usually will need to be reapplied during sexual activity. Oil-based lubricants are not compatible with condoms. Silicone-based lubricants should be used with caution in the shower as they can make floors slippery. Household food oils such as olive oil, coconut oil, corn oil and Cristco may increase the risk of vaginal infections such as bacterial vaginosis and yeast. Pre-seed is designed for patients trying to conceive as it does not affect sperm motility. You may need to try several different brands of lubricant until you find the one that works best for you. When choosing a lubricant, avoid those that contain perfumes, flavors or ?warming? ingredients. Benzyl alcohol and glycerin can cause drying and irritation and parabens may be harmful to health. Look for 510(k) Clearance which means that all ingredients are considered safe by the FDA. You can search for approved products on the FDA website at http://www.accessdata.fda.gov/scripts/cdrh/cfdocs/cfpmn/pmn.cfm. Examples of 510(k) cleared lubricants include Uberlube, Sylk, Good Clean Love and Astroglide. Vaginal moisturizers such as Luvena and Replens are designed for regular use several times a week for long-term relief of vaginal dryness. Some formulations contain a pre-biotic to help maintain vaginal pH and protect against bacterial vaginosis and yeast. For post-menopausal women who have persistent vaginal dryness, prescription treatments are available including vaginal estrogen and vaginal laser therapy. Talk to your doctor if your symptoms are not resolved by lubricant or moisturizer use. Medications Discontinued During This Encounter ondansetron orally disintegrating (Z* 30 t* 1 08/15/2017 06/04/2018 Route: ORAL Sig: Take 1 tablet by mouth every 6 hours as needed for Nausea/Vomiting. Disc: Reason for discontinue is not on file. MULTI-VITAMIN ORAL 06/04/2018 Class: Historical Med Route: ORAL Sig: Take by mouth once daily. Disc: Reason for discontinue is not on file. cholecalciferol, vitamin D3, 2,000 u* 06/04/2018 Class: Historical Med Route: ORAL Sig: Take by mouth once daily. Disc: Reason for discontinue is not on file. aspirin, enteric coated (ASPIRIN, EN* 06/04/2018 Class: Historical Med Route: ORAL Sig: Take 81 mg by mouth once daily. Disc: Reason for discontinue is not on file. Disposition: Return in 1 year (on 06/04/2019) for Annual Exam. Follow-up and Disposition History Recorded Encounter Status:Closed by SONIA COLEMAN MD on 06/04/18 INITAL EVALUATION (1) Observed: 05/28/2018 Status: F Source: [place] - PT 3:28 PM [facility] REPOSITORY [facility] [address] [place] [address] Fax REHABILITATION SERVICES INITIAL EVALUATION MR#: [id number] Acct: [id number] Name: MARJORIE HOSKINS Rep #: [id number] : 1950 68 From: Sandra Lacey DPT Referring DrHattie: Status: REG RCR Insurance: [facility] [employer] PPO Patient's Visit Information MARJORIE HOSKINS is a 68 year old F referred to Physical Therapy by RIK ROMERO with a diagnosis of Lumbar Pain. Date of Evaluation: 05/28/18 Physical Therapist: Sandra Lacey - Visit Plan Frequency: 2x /Week Duration: 6 Weeks Plan: Focus on core s/s and movement- manual as needed - Subjective Subjective: Patient reports that she has been going to pain management for years- she is always told that she is really tight. 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 The right leg was affected and went to ER- went through therapy, injections and finally had a spinal fusion. It helped a lot- not perfect but is much better- is not dragging her right leg. Agg: cold damp weather, sitting to long, stand to long, lay to long (60 minutes). Worst: 9/10 Best: 5/10 Eases: TENS unit and a heating pad a lot, changing positions. Pain is located in the low back and radiates down the right leg to the knee. Describes pain as dull and achy- N/T down the right leg. Feels like her foot or toes are tingly- N/T comes and goes. No changes in mireille or bladder-Sleep: medication but it only works for about 4 hours then she gets up and goes to the bathroom every 2 hours. 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 PMhx/Meds:no changes- see scanned in chart. - Objective Posture: Fh, RS, increased kyphosis- patient can correct with verbal and tactile cues but does not maintain. Gait: no deviation noted- good arm swing and trunk rotation. Stairs: asc/desc 8 reip with 1 HR. HR/TR: able bilaterally with UE A for balance. SLS: 4 seconds on the left and 3 seconds on the right before UE A required. ROM: Lumbar- flexion: to mid thigh, Extn: decreased by 75%, SB: decreased by 50%, Rot: decreased by 50% reports pain in all ranges. Hip: flexion: 90 degrees, Abd/Ir/ER: WNL, Knee: WNL, Ankle: WNL. Sensation/Reflex: WNL. Strength: Ankle: 4+/5, Knee: 5/5, Hip: 4-5/ throughout with pain, Core: poor. Flex: HS: severe, Gastroc: moderate. Special Test: Slump positive on right. Palpation: tender along paraspinals of the lumbar spine into the gluts bilaterally - Goals Goal 1:: Patient will be I with HEP and progression Goal Time Frame: 4-6 Weeks Goal 2:: Patient will maintain proper posture t/o tx session Goal Time Frame: 4-6 Weeks Goal 3:: Patient will report 3/10 pain for 1 week Goal Time Frame: 4-6 Weeks - Rehabilitation Potential Physical Therapy Diagnosis: Patient presents with hypomobility- she has decreased ROM, strength and muscular endurance leading to pain with ADL's. Rehabilitation Potential: Fair - Anticipated Interventions Patient/Client Instruction: Educate patient on: Benefits of Fitness Program Therapeutic Exercise to Include: Strength training, Endurance training, Balance training, Agility training, Body mechanics, Postural training, Flexibilty training, Gait and locomotor training, Passive ROM, Active ROM, Dynamic Lumbar Stabilization, Scapular Strength/Stabilization For the Purpose of:: To improve muscle performance and motor function TENS: No - Has one at home Cryotherapy (ice pack, ice massage): Yes Thermo therapy (hot pack): Yes Ultrasound (thermal/non thermal): No - Lumbar Fusion 2004 Thank you for the opportunity to evaluate your patient. For Medicare and Medicare HMO plans, please review the plan of care and approve it. It will need to be FAXED BACK to us at [phone] for Medicare purposes. Please let me know if there are questions or concerns regarding this plan of care. Physician Signature: Date: <Electronically signed by Sandra Lacey DPT> 05/28/18 1528 CC: RIK ROMERO; Cy Pulido MD ELR Signed For Medicare only, by signing this I certify the plan of care. Physicians Signature Date CNNURSE Observed: 05/03/2018 Status: COMPLETED Source: [place] 11:00 AM [facility] REPOSITORY Nurse Visit ([facility]) MARJORIE HOSKINS ([id number]) 1950 F Date Time Provider Department 05/03/18 11:00 AM [facility]SE [facility] During your visit today, we recorded the following information about you: Indira Christine Cma 05/03/2018 10:56 AM Signed 68 year old female here for INACTIVATED INFLUENZA VACCINE. 7948-8670 Season Patient is identified by name and date of : Yes [] CONTRAINDICATIONS color enhanced section Age less than 6 months? No Allergy to eggs, chicken, chicken feathers, or chicken dander? No Allergy to thimerosal (a preservative) or formaldehyde, gelatin? No History of severe reaction to any vaccine component or a previous dose of influenza vaccination? No History of Guillain-[place] Syndrome within 6 weeks after a previous influenza vaccine? No Patient is not moderately or severely ill? No Current temperature greater or equal to 100.4F? No History of Bone Marrow Transplant prior 6 months or solid organ transplant in the past 3 months ? No History of fainting after a prior injection or medical procedure? No- ? If patient has fainted in the past, the CDC recommends sitting or lying down for 15 minutes after the vaccination. [] VERIFICATION color enhanced section Was the answer Yes for any of the above contraindications? No contraindications present. Acceptable to proceed with vaccine. Patient/guardian agrees the above answers are true to the best of their knowledge? Yes Flu vaccine information sheet given? Yes See immunization activity in [facility] for details of immunizations adminstered today. Patient age: [age] year old For The 8208-0222 Flu Season 6-35 months old: Fluzone 0.25 ml - IM (Preservative Free) 3 years of age: Fluzone 0.5 ml - IM (Preservative Free) 3 years and older: Fluzone 0.5 ml- IM-(with Preservatives) 65+ years old: 2-49 years old Fluzone High-Dose 0.5 ml - IM (Preservative Free) FLUMIST- intranasal REMEMBER: If patient is less than 9 years of age and this is the first vaccine of Influenza to be received in any flu season, they should receive a second dose in one months time. Referring Provider: CY PULIDO [[id number]] Allergies As of Date: 05/03/2018 Noted Allergy Reaction OXYCODONE HCL 10/18/2014 9 - Itching PERCOCET (OXYCODONE-ACETAMINOPHEN)01/17/2007 9 - Itching Date Reviewed: 03/15/2018 Reviewed by: Marjorie Robert LPN - Fully Assessed Reason for Visit: Imm/Inj [58] Cmt: Flu Vaccine Primary Visit Diagnosis:Need for vaccination [Z23] Order(s):INFLUENZA SEASONAL HIGH DOSE AGE 65+ [[id number]] Order #: [id number] Prescriptions as of 05/03/2018 Sig: NIFEDIPINE ER 30 MG TABLET,EX* Take 1 tablet by mouth once d* SIMVASTATIN 40 MG TABLET Take 1 tablet by mouth daily * ESOMEPRAZOLE MAGNESIUM 40 MG * Take 1 capsule by mouth once * ONDANSETRON 4 MG DISINTEGRATI* Take 1 tablet by mouth every * MULTI-VITAMIN ORAL Take by mouth once daily. CHOLECALCIFEROL (VITAMIN D3) * Take by mouth once daily. ZOLPIDEM 5 MG TABLET ASPIRIN 81 MG TABLET,DELAYED * Take 81 mg by mouth once michell* HYDROMORPHONE ER 32 MG TABLET* Take 1 tablet by mouth once d* HYDROMORPHONE 8 MG TABLET Take 8 mg by mouth every 6 ho* Problem List As Of Date 05/03/2018 Noted Resolved DISC DEGENERATION NOS [[id number]] INVALID FOR* LUMB DISC DIS W MYELOPAT [M51.06] INVALID FOR* DEPRESSIVE DISORDER NEC [F32.9] INVALID FOR* ANXIETY STATE NOS [F41.1] INVALID FOR* Insomnia [G47.00] INVALID FOR* LATERAL EPICONDYLITIS RIGHT [M77.10] INVALID FOR* Abnormal weight gain [R63.5] INVALID FOR*12/24/2011 Esophageal reflux [K21.9] INVALID FOR* More... BACKACHE NOS [M54.9] INVALID FOR* ACUTE CHOLECYSTITIS [K81.0] INVALID FOR* Acute gastritis without mention of hemorrhage [*INVALID FOR*04/25/2016 Lung nodules [R91.8] More... Plantar Wart: L foot plantar medial mid heel [B*INVALID FOR* Cryosurgical Scar of skin of plantar L foot [L9*INVALID FOR* Kidney stone on right side [N20.0] INVALID FOR*02/14/2011 More... Herniated nucleus pulposus, lumbar [M51.26] INVALID FOR* Degenerative disk disease [XXI2866] INVALID FOR* Diaphragmatic hernia without mention of obstruc*INVALID FOR* Postmenopausal atrophic vaginitis [N95.2] INVALID FOR* Greater trochanteric bursitis of right hip [M70*INVALID FOR* Milial cyst [L72.0] INVALID FOR* Epidermal cyst [L72.0] INVALID FOR* Actinic skin damage [L57.8] INVALID FOR* Dysuria [R30.0] INVALID FOR*04/25/2016 UTI (lower urinary tract infection) [N39.0] INVALID FOR*04/25/2016 Urethral stenosis [YBF9843] INVALID FOR* Blue toes [R23.0] INVALID FOR* Carotid artery disease (HCC) [I77.9] More... Feeling of incomplete bladder emptying [R39.14] INVALID FOR* Urinary incontinence [R32] INVALID FOR* More... Raynaud's phenomenon without gangrene [I73.00] INVALID FOR* More... Trigger ring finger of right hand [M65.341] INVALID FOR* Dupuytren's disease of palm [M72.0] INVALID FOR* Breast lump on left side at 9 o'clock position *INVALID FOR* Therapeutic opioid-induced constipation (OIC) [*INVALID FOR* More... Gastroesophageal reflux disease without esophag*INVALID FOR* More... History of colonic polyps [Z86.010] INVALID FOR* More... Hyperlipidemia [E78.5] INVALID FOR* Encounter Status:Closed by INDIRA CHRISTINE CMA on 05/03/18 PROGRESS Observed: 04/28/2018 Status: COMPLETED Source: [place] 12:56 PM [facility] REPOSITORY O ID: [id number] Author: Indira Christine Cma Service: (none) Author Type: (none) Type: Progress Notes Filed: 05/03/2018 10:56 AM Note Text: 68 year old female here for INACTIVATED INFLUENZA VACCINE. 0863-7221 Season Patient is identified by name and date of : Yes [] CONTRAINDICATIONS color enhanced section Age less than 6 months? No Allergy to eggs, chicken, chicken feathers, or chicken dander? No Allergy to thimerosal (a preservative) or formaldehyde, gelatin? No History of severe reaction to any vaccine component or a previous dose of influenza vaccination? No History of Guillain-[place] Syndrome within 6 weeks after a previous influenza vaccine? No Patient is not moderately or severely ill? No Current temperature greater or equal to 100.4F? No History of Bone Marrow Transplant prior 6 months or solid organ transplant in the past 3 months ? No History of fainting after a prior injection or medical procedure? No- ? If patient has fainted in the past, the CDC recommends sitting or lying down for 15 minutes after the vaccination. [] VERIFICATION color enhanced section Was the answer Yes for any of the above contraindications? No contraindications present. Acceptable to proceed with vaccine. Patient/guardian agrees the above answers are true to the best of their knowledge? Yes Flu vaccine information sheet given? Yes See immunization activity in [facility] for details of immunizations adminstered today. Patient age: [age] year old For The 0304-1850 Flu Season 6-35 months old: Fluzone 0.25 ml - IM (Preservative Free) 3 years of age: Fluzone 0.5 ml - IM (Preservative Free) 3 years and older: Fluzone 0.5 ml- IM-(with Preservatives) 65+ years old: 2-49 years old Fluzone High-Dose 0.5 ml - IM (Preservative Free) FLUMIST- intranasal REMEMBER: If patient is less than 9 years of age and this is the first vaccine of Influenza to be received in any flu season, they should receive a second dose in one months time. CNCO Observed: 04/22/2018 Status: COMPLETED Source: [place] 1:03 PM [facility] REPOSITORY HNO ID: [id number] Author: Mammography Coordinator Service: (none) Author Type: Physician Type: Letter Filed: 04/23/2018 11:32 PM Note Text: April 22, 2018 PID: [id number] Marjorie Hoskins [address] [place] [address] Dear Ms. Hoskins, We are pleased to inform you that the results of your recent breast imaging exam on 04/22/2018 are normal. Early detection of cancer is very important. We also understand recommendations regarding breast cancer screening are controversial. Please discuss with your primary care provider which strategy is best for you and whether a mammogram is right for you. Your imaging studies and report will be kept on file at [facility] as part of your permanent medical record and are available for your continuing care. Thank you for allowing us to help in meeting your health care needs. Sincerely, Dr. Harmon Interpreting Radiologist [facility] (Normal over 40) [facility] SCREENING Observed: 04/22/2018 Status: F Source: [place] 12:57 PM [facility] REPOSITORY * * *Final Report* * * DATE OF EXAM: Apr 22 2018 12:57PM WO 0581 - [facility] SCREENING / PROCEDURE REASON: Encounter for screening mammogram for malignant neoplasm of breast * * * * Physician Interpretation * * * * RESULT: #[id number] - [facility] SCREENING BILATERAL DIGITAL SCREENING MAMMOGRAM WITH CAD: 04/22/2018 HISTORY: Encounter For Screening Mammogram For Malignant Neoplasm Of Breast /Screening Mammogram - patient reports NO breast symptoms /Priors available for comparison. RESULT: TECHNIQUE: The study was acquired using full field digital technology and interpreted from soft copy. Current study was also evaluated with a Computer Aided Detection (CAD). Comparison is made to exams dated: 04/17/2017 mammogram, 03/08/2016 mammogram - [facility], 10/13/2015 mammogram - [facility], and 02/14/2015 mammogram - [facility]. There are scattered fibroglandular elements in both breasts. There is a biopsy clip in the left breast. No significant masses, calcifications, or other findings are seen in either breast. There has been no significant interval change. IMPRESSION: NEGATIVE There is no mammographic evidence of malignancy.A 1 year screening mammogram is recommended. Js Harmon M.D. ns/penrad:04/22/2018 13:03:57 Deck Engineer: Tereza LARIOS)([place]), [facility] letter sent: Normal over 40 Mammogram BI-RADS: 1 Negative Multiple national specialty organizations have released breast cancer screening guidelines for women at average risk for developing breast cancer - guidelines that are based on both evidence and opinion, yet differ on when to start and how often to screen for breast cancer. With representation from Breast Imaging, Internal Medicine, Women's Health, Family Medicine, and Medical/Surgical Oncology, the [facility] has carefully reviewed the data and reached the following consensus: 1) All women should engage in shared decision-making with their providers to decide when to start and how often to screen; 2) All women should have the opportunity to start screening mammography at age 40; 3) For women ages 45-55, we recommend annual screening mammograms; 4) For women ages 55 and over, we support both the transition from an annual to a biennial interval if this aligns more with patient's values and preferences, or continuation with annual screening; 5) All women should discuss with their providers when to stop screening mammograms. Lease Picker: Gaurang Transcribe Date/Time: Apr 22 2018 12:41P Dictated by: JS HARMON MD This examination was interpreted and the report reviewed and electronically signed by: JS HARMON MD on Apr 22 2018 1:03PM EST [id number] Observed: 03/15/2018 Status: COMPLETED Source: [place] 9:55 AM [facility] REPOSITORY [facility] ID: [id number] Author: Cy Pulido Service: (none) Author Type: Physician Type: Progress Notes Filed: 03/27/2018 10:29 PM Note Text: Patient presents with: F/U 6 Month SUBJECTIVE: Marjorie Hoskins is a 68 year old year old lady here today for 6 month follow up appointment for review of medical conditions. Doing better with portion control. Stable with management of pain through [facility] pain management. Sometimes bones in hands hurt--can be at rest mostly. Not sure if Raynaud's an issue. No joint swelling noted. PAST MEDICAL HISTORY Diagnosis Date - ANXIETY STATE NOS 01/15/2006 - Benign neoplasm of colon 02/2004 colon polyps - Carotid artery disease (HCC) MIld on Life Screening done Jul 04 2010 - Depressive disorder, not elsewhere classified - Diaphragmatic hernia without mention of obstruction or gangrene - DISC DEGENERATION NOS 06/18/2005 - Diverticulosis of colon (without mention of hemorrhage) - Esophageal reflux - [place] (hard of hearing) Wears bilateral hearing aids - Hypertension - INSOMNIA NOS 02/04/2006 - LUMB DISC DIS W MYELOPAT 06/20/2005 - Lung nodules Workup jeffy Cano Current Outpatient Prescriptions: NIFEdipine ER (PROCARDIA XL) 30 mg 24 hr tablet Take 1 tablet by mouth once daily. As directed for Blood Pressure and for Raynaud's simvastatin (ZOCOR) 40 mg tablet Take 1 tablet by mouth daily at bedtime. For cholesterols. esomeprazole (NEXIUM) 40 mg capsule Take 1 capsule by mouth once daily. ondansetron orally disintegrating (ZOFRAN ODT) 4 mg disintegrating tablet Take 1 tablet by mouth every 6 hours as needed for Nausea/Vomiting. cholecalciferol, vitamin D3, 2,000 unit chew Take by mouth once daily. zolpidem (AMBIEN) 5 mg tablet aspirin, enteric coated (ASPIRIN, ENTERIC COATED) 81 mg EC tablet Take 81 mg by mouth once daily. HYDROmorphone (EXALGO ER) 32 mg Tb24 Take 1 tablet by mouth once daily. HYDROmorphone HCl (HYDROMORPHONE) 8 mg tablet Take 8 mg by mouth every 6 hours as needed. MULTI-VITAMIN ORAL Take by mouth once daily. No current facility-administered medications for this visit. OBJECTIVE: BP 134/74 (BP Site: Right Arm, BP Position: Sitting, BP Cuff Size: Regular Adult) Pulse 84 Resp 16 Wt 73.5 kg (162 lb) BMI 27.81 kg/m? Patient is alert, oriented times 3, no apparent distress, affect is bright, reactive. Last 5 Encounter BP Readings: Date: BP: 03/15/2018 134/74--132/72 on recheck 08/22/2017 134/74 07/02/2017 139/79 07/02/2017 132/61 04/26/2017 130/64 Last 5 Encounter Wt Readings: Date: Wt: 03/15/2018 73.5 kg (162 lb) 08/22/2017 75.2 kg (165 lb 12.8 oz) 07/02/2017 76.9 kg (169 lb 9.6 oz) 04/26/2017 78 kg (172 lb) 04/17/2017 77.6 kg (171 lb) Heart: Regular rate, rhythm, no murmurs, gallops, rubs. Lungs: Clear to auscultation, bilaterally, breathing non labored. Ext: No cyanosis, clubbing, or edema. PHYSICAL EXAM: General Appearance: Well appearing, alert, in no acute distress, well-hydrated, well nourished.. Skin: Skin color, texture, turgor normal, no suspicious rashes or lesions. Eyes: Anicteric sclera. Pupils are equally round and reactive to light. Extraocular movements are intact. . Lungs: Lungs clear to auscultation. No wheezing, rhonchi, rales. Heart: RRR without murmur, gallop, or rubs. No ectopy. Extremities: No deformities, edema, skin discoloration. Neurologic: Negative findings: speech normal; gait not atacix Component Latest Ref Rng AND Units 10/09/2016 2018 Protein, Total 6.3 - 8.0 g/dL 7.2 7.2 Albumin 3.9 - 4.9 g/dL 4.1 4.5 Calcium 8.5 - 10.2 mg/dL 10.0 9.9 Bilirubin, Total 0.2 - 1.3 mg/dL 0.3 0.4 Alkaline Phosphatase 32 - 117 U/L 70 74 AST 13 - 35 U/L 16 21 Glucose 74 - 99 mg/dL 98 106 (H) BUN 7 - 21 mg/dL 8 10 Creatinine 0.58 - 0.96 mg/dL 0.79 0.72 Sodium 136 - 144 mmol/L 141 140 Potassium 3.7 - 5.1 mmol/L 3.8 4.0 Chloride 97 - 105 mmol/L 101 100 CO2 22 - 30 mmol/L 24 24 Anion Gap 9 - 18 mmol/L 16 16 ALT 7 - 38 U/L 22 19 eGFR- >60 >60 eGFR-All Other Races . >60 >60 WBC 3.70 - 11.00 k/uL 6.14 5.56 RBC 3.90 - 5.20 m/uL 5.00 5.05 Hemoglobin 11.5 - 15.5 g/dL 14.8 15.0 Hematocrit 36.0 - 46.0 % 44.0 45.0 MCV 80.0 - 100.0 fL 88.0 89.1 MCH 26.0 - 34.0 pG 29.6 29.7 MCHC 30.5 - 36.0 g/dL 33.6 33.3 RDW-CV 11.5 - 15.0 % 11.9 11.9 Platelet Count 150 - 400 k/uL 310 297 MPV 9.0 - 12.7 fL 9.6 10.2 Absolute nRBC <0.01 k/uL <0.01 Triglyceride <150 mg/dL 178 (H) 136 Cholesterol, Total <200 mg/dL 174 165 HDL Cholesterol >39 mg/dL 57 55 VLDL Cholesterol <30 mg/dL 36 27 LDL Cholesterol <100 mg/dL 81 83 Fasting Time hrs 13 16 TC:HDL Ratio <5.10 3.05 3.00 LDL:HDL Ratio <2.54 1.42 1.51 Non HDL Cholesterol <130 mg/dL 117 110 Magnesium 1.7 - 2.3 mg/dL 2.3 2.3 Hep C Antibody IA Negative Negative ASSESSMENT AND PLAN: Encounter Diagnosis ICD-10-CM 1. Hyperlipidemia, unspecified hyperlipidemia type E78.5 2. Raynaud's phenomenon without gangrene I73.00 3. Gastroesophageal reflux disease without esophagitis K21.9 controlled 4. Encounter for long-term current use of medication Z79.899 COMP METABOLIC PANEL CBC MAGNESIUM BLD 5. Elevated fasting glucose R73.01 COMP METABOLIC PANEL HGB A1C Noted had upper and lower endoscopy July 2017 so is up to date. Colonoscopy in 5 years, not 2019. Above issues addressed with patient. Patient involved in shared decision making for management of her medical issues. History and medications reviewed. Epic updated as needed Refills taken care of and meds adjusted as indicated after reviewed history, exam and labs. Health Maintenance reviewed. Updated record and/or ordered tests as recorded. Encouraged on efforts at healthy diet and regular exercise and adequate sleep. Needs to keep working on diet and exercise with lifestyle changes for effective weight control as well as prevent DM and improve BP and continue control of lipids. Lipids to goals. BP <140/90, but not yet <130/80. Discussed current goal. Keep working on diet and exercise. Further evaluation and treatment as indicated. If hand pain persists, could adjust nifedipine in case Raynaud's contributing--this can help with BP too. The majority of the visit was spent counseling and/or coordinating care for the patient. Jicj-sr-uoup time was at least 20 minutes. Cy Pulido MD CNOV Observed: 03/15/2018 Status: COMPLETED Source: [place] 9:20 AM [facility] REPOSITORY Office Visit (INTMWS) MARJORIE HOSKINS Feroz ([id number]) 1950 F Date Time Provider Department 03/15/18 9:20 AM CY PULIDO INTMWS During your visit today, we recorded the following information about you: Pulse Respiration Blood pressure Weight 84/minute 16/minute 134/74 73.5 kg Cy Pulido MD 03/27/2018 10:29 PM Signed Patient presents with: F/U 6 Month SUBJECTIVE: Marjorie Enamoradoham is a 68 year old year old lady here today for 6 month follow up appointment for review of medical conditions. Doing better with portion control. Stable with management of pain through [facility]. Sometimes bones in hands hurt--can be at rest mostly. Not sure if Raynaud's an issue. No joint swelling noted. PAST MEDICAL HISTORY Diagnosis Date - ANXIETY STATE NOS 01/15/2006 - Benign neoplasm of colon 02/2004 colon polyps - Carotid artery disease (HCC) MIld on Life Screening done Jul 04 2010 - Depressive disorder, not elsewhere classified - Diaphragmatic hernia without mention of obstruction or gangrene - DISC DEGENERATION NOS 06/18/2005 - Diverticulosis of colon (without mention of hemorrhage) - Esophageal reflux - [place] (hard of hearing) Wears bilateral hearing aids - Hypertension - INSOMNIA NOS 02/04/2006 - LUMB DISC DIS W MYELOPAT 06/20/2005 - Lung nodules Workup jeffy Cano Current Outpatient Prescriptions: NIFEdipine ER (PROCARDIA XL) 30 mg 24 hr tablet Take 1 tablet by mouth once daily. As directed for Blood Pressure and for Raynaud's simvastatin (ZOCOR) 40 mg tablet Take 1 tablet by mouth daily at bedtime. For cholesterols. esomeprazole (NEXIUM) 40 mg capsule Take 1 capsule by mouth once daily. ondansetron orally disintegrating (ZOFRAN ODT) 4 mg disintegrating tablet Take 1 tablet by mouth every 6 hours as needed for Nausea/Vomiting. cholecalciferol, vitamin D3, 2,000 unit chew Take by mouth once daily. zolpidem (AMBIEN) 5 mg tablet aspirin, enteric coated (ASPIRIN, ENTERIC COATED) 81 mg EC tablet Take 81 mg by mouth once daily. HYDROmorphone (EXALGO ER) 32 mg Tb24 Take 1 tablet by mouth once daily. HYDROmorphone HCl (HYDROMORPHONE) 8 mg tablet Take 8 mg by mouth every 6 hours as needed. MULTI-VITAMIN ORAL Take by mouth once daily. No current facility-administered medications for this visit. OBJECTIVE: BP 134/74 (BP Site: Right Arm, BP Position: Sitting, BP Cuff Size: Regular Adult) Pulse 84 Resp 16 Wt 73.5 kg (162 lb) BMI 27.81 kg/m? Patient is alert, oriented times 3, no apparent distress, affect is bright, reactive. Last 5 Encounter BP Readings: Date: BP: 03/15/2018 134/74--132/72 on recheck 08/22/2017 134/74 07/02/2017 139/79 07/02/2017 132/61 04/26/2017 130/64 Last 5 Encounter Wt Readings: Date: Wt: 03/15/2018 73.5 kg (162 lb) 08/22/2017 75.2 kg (165 lb 12.8 oz) 07/02/2017 76.9 kg (169 lb 9.6 oz) 04/26/2017 78 kg (172 lb) 04/17/2017 77.6 kg (171 lb) Heart: Regular rate, rhythm, no murmurs, gallops, rubs. Lungs: Clear to auscultation, bilaterally, breathing non labored. Ext: No cyanosis, clubbing, or edema. PHYSICAL EXAM: General Appearance: Well appearing, alert, in no acute distress, well-hydrated, well nourished.. Skin: Skin color, texture, turgor normal, no suspicious rashes or lesions. Eyes: Anicteric sclera. Pupils are equally round and reactive to light. Extraocular movements are intact. . Lungs: Lungs clear to auscultation. No wheezing, rhonchi, rales. Heart: RRR without murmur, gallop, or rubs. No ectopy. Extremities: No deformities, edema, skin discoloration. Neurologic: Negative findings: speech normal; gait not atacix Component Latest Ref Rng AND Units 10/09/2016 2018 Protein, Total 6.3 - 8.0 g/dL 7.2 7.2 Albumin 3.9 - 4.9 g/dL 4.1 4.5 Calcium 8.5 - 10.2 mg/dL 10.0 9.9 Bilirubin, Total 0.2 - 1.3 mg/dL 0.3 0.4 Alkaline Phosphatase 32 - 117 U/L 70 74 AST 13 - 35 U/L 16 21 Glucose 74 - 99 mg/dL 98 106 (H) BUN 7 - 21 mg/dL 8 10 Creatinine 0.58 - 0.96 mg/dL 0.79 0.72 Sodium 136 - 144 mmol/L 141 140 Potassium 3.7 - 5.1 mmol/L 3.8 4.0 Chloride 97 - 105 mmol/L 101 100 CO2 22 - 30 mmol/L 24 24 Anion Gap 9 - 18 mmol/L 16 16 ALT 7 - 38 U/L 22 19 eGFR- >60 >60 eGFR-All Other Races . >60 >60 WBC 3.70 - 11.00 k/uL 6.14 5.56 RBC 3.90 - 5.20 m/uL 5.00 5.05 Hemoglobin 11.5 - 15.5 g/dL 14.8 15.0 Hematocrit 36.0 - 46.0 % 44.0 45.0 MCV 80.0 - 100.0 fL 88.0 89.1 MCH 26.0 - 34.0 pG 29.6 29.7 MCHC 30.5 - 36.0 g/dL 33.6 33.3 RDW-CV 11.5 - 15.0 % 11.9 11.9 Platelet Count 150 - 400 k/uL 310 297 MPV 9.0 - 12.7 fL 9.6 10.2 Absolute nRBC <0.01 k/uL <0.01 Triglyceride <150 mg/dL 178 (H) 136 Cholesterol, Total <200 mg/dL 174 165 HDL Cholesterol >39 mg/dL 57 55 VLDL Cholesterol <30 mg/dL 36 27 LDL Cholesterol <100 mg/dL 81 83 Fasting Time hrs 13 16 TC:HDL Ratio <5.10 3.05 3.00 LDL:HDL Ratio <2.54 1.42 1.51 Non HDL Cholesterol <130 mg/dL 117 110 Magnesium 1.7 - 2.3 mg/dL 2.3 2.3 Hep C Antibody IA Negative Negative ASSESSMENT AND PLAN: Encounter Diagnosis ICD-10-CM 1. Hyperlipidemia, unspecified hyperlipidemia type E78.5 2. Raynaud's phenomenon without gangrene I73.00 3. Gastroesophageal reflux disease without esophagitis K21.9 controlled 4. Encounter for long-term current use of medication Z79.899 COMP METABOLIC PANEL CBC MAGNESIUM BLD 5. Elevated fasting glucose R73.01 COMP METABOLIC PANEL HGB A1C Noted had upper and lower endoscopy July 2017 so is up to date. Colonoscopy in 5 years, not 2019. Above issues addressed with patient. Patient involved in shared decision making for management of her medical issues. History and medications reviewed. Epic updated as needed Refills taken care of and meds adjusted as indicated after reviewed history, exam and labs. Health Maintenance reviewed. Updated record and/or ordered tests as recorded. Encouraged on efforts at healthy diet and regular exercise and adequate sleep. Needs to keep working on diet and exercise with lifestyle changes for effective weight control as well as prevent DM and improve BP and continue control of lipids. Lipids to goals. BP <140/90, but not yet <130/80. Discussed current goal. Keep working on diet and exercise. Further evaluation and treatment as indicated. If hand pain persists, could adjust nifedipine in case Raynaud's contributing--this can help with BP too. The majority of the visit was spent counseling and/or coordinating care for the patient. Muim-lr-bimh time was at least 20 minutes. Cy Pulido MD Referring Provider: SELF [200] Allergies As of Date: 03/15/2018 Noted Allergy Reaction OXYCODONE HCL 10/18/2014 9 - Itching PERCOCET (OXYCODONE-ACETAMINOPHEN)01/17/2007 9 - Itching Date Reviewed: 03/15/2018 Reviewed by: Marjorie Robert LPN - Fully Assessed Reason for Visit: F/U 6 Month [444] Primary Visit Diagnosis:Hyperlipidemia, unspecified hyperlipidemia type [E78.5] Other Visit Diagnoses:Raynaud's phenomenon without gangrene [I73.00] Gastroesophageal reflux disease without esophagitis [K21.9] Comment:controlled Encounter for long-term current use of medication [Z79.899] Elevated fasting glucose [R73.01] Order(s):COMP METABOLIC PANEL [SQCMP] Order #: [id number] FUTURE CBC [SQCBC] Order #: [id number] FUTURE HGB A1C [PARWR1S] Order #: [id number] FUTURE MAGNESIUM BLD [SQMG1] Order #: [id number] FUTURE Prescriptions as of 03/15/2018 Sig: NIFEDIPINE ER 30 MG TABLET,EX* Take 1 tablet by mouth once d* SIMVASTATIN 40 MG TABLET Take 1 tablet by mouth daily * ESOMEPRAZOLE MAGNESIUM 40 MG * Take 1 capsule by mouth once * ONDANSETRON 4 MG DISINTEGRATI* Take 1 tablet by mouth every * CHOLECALCIFEROL (VITAMIN D3) * Take by mouth once daily. ZOLPIDEM 5 MG TABLET ASPIRIN 81 MG TABLET,DELAYED * Take 81 mg by mouth once michell* HYDROMORPHONE ER 32 MG TABLET* Take 1 tablet by mouth once d* HYDROMORPHONE 8 MG TABLET Take 8 mg by mouth every 6 ho* MULTI-VITAMIN ORAL Take by mouth once daily. Medication notes this encounter ZOLPIDEM 5 MG TABLET >> Cy Pulido MD 03/15/2018 10:06 AM >> CY PULIDO MD SatMar 15, 2018 10:06 AM Getting from pain management Problem List As Of Date 03/15/2018 Noted Resolved DISC DEGENERATION NOS [[id number]] INVALID FOR* LUMB DISC DIS W MYELOPAT [M51.06] INVALID FOR* DEPRESSIVE DISORDER NEC [F32.9] INVALID FOR* ANXIETY STATE NOS [F41.1] INVALID FOR* Insomnia [G47.00] INVALID FOR* LATERAL EPICONDYLITIS RIGHT [M77.10] INVALID FOR* Abnormal weight gain [R63.5] INVALID FOR*12/24/2011 Esophageal reflux [K21.9] INVALID FOR* More... BACKACHE NOS [M54.9] INVALID FOR* ACUTE CHOLECYSTITIS [K81.0] INVALID FOR* Acute gastritis without mention of hemorrhage [*INVALID FOR*04/25/2016 Lung nodules [R91.8] More... Plantar Wart: L foot plantar medial mid heel [B*INVALID FOR* Cryosurgical Scar of skin of plantar L foot [L9*INVALID FOR* Kidney stone on right side [N20.0] INVALID FOR*02/14/2011 More... Herniated nucleus pulposus, lumbar [M51.26] INVALID FOR* Degenerative disk disease [BSO3735] INVALID FOR* Diaphragmatic hernia without mention of obstruc*INVALID FOR* Postmenopausal atrophic vaginitis [N95.2] INVALID FOR* Greater trochanteric bursitis of right hip [M70*INVALID FOR* Milial cyst [L72.0] INVALID FOR* Epidermal cyst [L72.0] INVALID FOR* Actinic skin damage [L57.8] INVALID FOR* Dysuria [R30.0] INVALID FOR*04/25/2016 UTI (lower urinary tract infection) [N39.0] INVALID FOR*04/25/2016 Urethral stenosis [N35.9] INVALID FOR* Blue toes [R23.0] INVALID FOR* Carotid artery disease (HCC) [I77.9] More... Feeling of incomplete bladder emptying [R39.14] INVALID FOR* Urinary incontinence [R32] INVALID FOR* More... Raynaud's phenomenon without gangrene [I73.00] INVALID FOR* More... Trigger ring finger of right hand [M65.341] INVALID FOR* Dupuytren's disease of palm [M72.0] INVALID FOR* Breast lump on left side at 9 o'clock position *INVALID FOR* Therapeutic opioid-induced constipation (OIC) [*INVALID FOR* More... Gastroesophageal reflux disease without esophag*INVALID FOR* More... History of colonic polyps [Z86.010] INVALID FOR* More... Hyperlipidemia [E78.5] INVALID FOR* Medications Discontinued During This Encounter lubiprostone (AMITIZA) 24 mcg capsule 03/15/2018 Class: Historical Med Route: ORAL Sig: Take 24 mcg by mouth twice daily with meals. Disc: Reason for discontinue is not on file. Disposition: Return in about 6 months (around 09/15/2018) for 6 months follow up. Follow-up and Disposition History Recorded Encounter Status:Closed by CY PULIDO MD on 03/27/18 CBC Collected: 2018 Status: F Source: [place] 9[facility] TYPE CODE TESTS RESULT OUT OF REFERENCE UNITS RANGE LAB WBC 3.70-11.00 k/uL WBC 5.56 LAB RBC 3.90-5.20 m/uL RBC 5.05 LAB HGB 11.5-15.5 g/dL Hemoglobin 15.0 LAB HCT 36.0-46.0 % Hematocrit 45.0 LAB MCV 80.0-100.0 fL MCV 89.1 LAB MCH 26.0-34.0 pG MCH 29.7 LAB MCHC 30.5-36.0 g/dL MCHC 33.3 LAB RDWCV 11.5-15.0 % RDW-CV 11.9 LAB PLTCT 150-400 k/uL Platelet Count 297 LAB MPV 9.0-12.7 fL MPV 10.2 LAB ABSNUC <0.01 k/uL Absolute nRBC <0.01 Performed By: #### CBC, AHCV1B, CMP, LIPB, MG1 #### [place] [id number] [place] [address] HEP C AB IA W/CONF Collected: 2018 Status: F Source: [place] 9:44 [facility] REPOSITORY TYPE CODE TESTS RESULT OUT OF REFERENCE UNITS RANGE LAB AHCV Negative Hepatitis C Ab Negative IA Performed By: #### CBC, AHCV1B, CMP, LIPB, MG1 #### [place] [id number] [place] [address] COMP METABOLIC PANEL Collected: 2018 Status: F Source: [place] 9:44 [facility] REPOSITORY TYPE CODE TESTS RESULT OUT OF REFERENCE UNITS RANGE LAB TP 6.3-8.0 g/dL Protein, Total 7.2 LAB ALB 3.9-4.9 g/dL Albumin 4.5 LAB CA 8.5-10.2 mg/dL Calcium, Total 9.9 LAB TBIL 0.2-1.3 mg/dL Bilirubin, Total 0.4 LAB ALKP 32-117 U/L Alkaline Phosphatase 74 LAB AST 13-35 U/L AST 21 LAB GLU 74-99 mg/dL Glucose High 106 Result Comment: The [place] Diabetes Association (ADA) provides guidance for cutoff values for fasting glucose and random glucose. The ADA defines fasting as no caloric intake for at least 8 hours. Fas ting plasma glucose results between 100 to 125 mg/dL indicate increased risk for diabetes (prediabetes). Fasting plasma glucose results greater than or equal to 126 mg/dL meet the criteria for diagnosis of diabetes. In the absence of unequivocal hyperglycemia, results should be confirmed by repeat testing. In a patient with classic symptoms of hyperglycemia or hyperglycemic crisis, random plasma glucose results greater than or equal to 200 mg/dL meet the criteria for diagnosis of diabetes. Reference: Standards of Medical Care in Diabetes 2016, [place] Diabetes Association. Diabetes Care. 2016.39(Suppl 1). LAB BUN 7-21 mg/dL BUN 10 LAB CRET 0.58-0.96 mg/dL Creatinine 0.72 LAB NA 136-144 mmol/L Sodium 140 LAB K 3.7-5.1 mmol/L Potassium 4.0 LAB CL 97-105 mmol/L Chloride 100 LAB CO2 22-30 mmol/L CO2 24 LAB AGAP 9-18 mmol/L Anion Gap 16 LAB ALT 7-38 U/L ALT 19 LAB GFRAA eGFR- Amer. >60 LAB GFRNAA . eGFR-All Other Races >60 Result Comment: eGFR (Estimated GFR) Units of measure: mL/min/1.73 meters squared eGFR is derived from the reexpressed MDRD Study equation using the following parameters: serum creatinine, age, gender and race. The creatinine assay has been calibrated to be traceable to IDMS. An eGFR <60 mL/min/1.73m2 for >3 months is consistent with chronic kidney disease. Refer to KDOQI guidelines for clinical interpretation. In patients with unstable renal function, e.g. those with acute kidney injury, the eGFR may not accurately reflect actual GFR. Performed By: #### CBC, AHCV1B, CMP, LIPB, MG1 #### [facility] [address] [place], [place] [address] LIPID PANEL, BASIC Collected: 2018 Status: F Source: [place] 9:44 AM [facility] REPOSITORY TYPE CODE TESTS RESULT OUT OF REFERENCE UNITS RANGE LAB CHOL <200 mg/dL Cholesterol 165 Result Comment: <200 mg/dL, Desirable 200-239 mg/dL, Borderline high >239 mg/dL, High LAB TRIGLY <150 mg/dL Triglyceride 136 Result Comment: <150 mg/dL, Normal 150-199 mg/dL, Borderline high 200-499 mg/dL, High >499 mg/dL, Very high LAB HDL >39 mg/dL HDL-Cholesterol 55 Result Comment: 40-59 mg/dL, Acceptable >59 mg/dL, High: Negative risk factor for coronary heart disease <40 mg/dL, Low: Positive risk factor for coronary heart disease LAB LDL <100 mg/dL LDL-Cholesterol 83 Result Comment: <100 mg/dL, Optimal 100-129 mg/dL, Near optimal/above optimal 130-159 mg/dL, Borderline high 160-189 mg/dL, High >189 mg/dL, Very high Secondary prevention optimal LDL Cholesterol levels are recommended to be < 70 mg/dL LAB NONHDL <130 mg/dL Non HDL Cholesterol 110 Result Comment: <130 mg/dL, Optimal 130-159 mg/dL, Near optimal/above optimal 160-189 mg/dL, Borderline high 190-219 mg/dL, High >219 mg/dL, Very high Secondary prevention optimal non HDL Cholesterol levels are recommended to be < 100 mg/dL LAB FT hrs Fasting Time 16 LAB VLDL <30 mg/dL VLDL Cholesterol 27 LAB TCHDL <5.10 TC:HDL Ratio 3.00 LAB LDLHDL <2.54 LDL:HDL Ratio 1.51 Result Comment: Reference: 1. National Cholesterol Education Program ATP III Guideline At-A-Glance Quick Desk Reference: National Heart, Lung, and Blood [place]. National Institutes of Health. 2001: NIH Publication No. 01-3305. 2. An International Atherosclerosis Society position paper: global recommendations for the management of dyslipidemia: executive summary, Atherosclerosis. 2014: 232(2):410-413. Performed By: #### CBC, AHCV1B, CMP, LIPB, MG1 #### [facility] [address] [place] [id number] MAGNESIUM Collected: 2018 Status: F Source: [place] 9:44 AM [facility] REPOSITORY TYPE CODE TESTS RESULT OUT OF REFERENCE UNITS RANGE LAB MG 1.7-2.3 mg/dL Magnesium 2.3 Performed By: #### CBC, AHCV1B, CMP, LIPB, MG1 #### [facility] [address] [place], [place] [address] CNPN Observed: 02/24/2018 Status: COMPLETED Source: [place] 12:00 AM [facility] REPOSITORY Telephone (INTMWS) GATOMARJORIE Feroz ([id number]) 1950 F Date Time Provider Department 02/24/18 CY PULIDO INTMWS During your visit today, we recorded the following information about you: Vega Yanes Psr 02/24/2018 3:10 PM Signed Pt has been rescheduled from Dr. Ashok BENNETT to Ryan Swartz CNP on 03/10/18. Pt said she would like labs ordered prior to her appt. Once orders are placed, please advise pt. Thank you, Vega Yanes Psr Malinda Rico LPN 02/26/2018 11:07 AM Signed orders pending from what was previously ordered by LDT in April 2017 Dennys Swartz APRN.[employer]PH[employer] DISTRIBUTOR OPERATOR 2018 2:18 PM Addendum All ordered earlier today today. Allergies As of Date: 02/24/2018 Noted Allergy Reaction OXYCODONE HCL 10/18/2014 9 - Itching PERCOCET (OXYCODONE-ACETAMINOPHEN)01/17/2007 9 - Itching Date Reviewed: 08/22/2017 Reviewed by: Kaitlin Lawton MA - Fully Assessed Reason for Visit: labs needed prior to appt [Other] Primary Visit Diagnosis:Need for hepatitis C screening test [Z11.59] Other Visit Diagnoses:Gastroesophageal reflux disease without esophagitis [K21.9] Hyperlipidemia, unspecified hyperlipidemia type [E78.5] Bilateral carotid artery disease, unspecified type (HCC) [I77.9] Prescriptions as of 02/24/2018 Sig: NIFEDIPINE ER 30 MG TABLET,EX* Take 1 tablet by mouth once d* SIMVASTATIN 40 MG TABLET Take 1 tablet by mouth daily * ESOMEPRAZOLE MAGNESIUM 40 MG * Take 1 capsule by mouth once * ONDANSETRON 4 MG DISINTEGRATI* Take 1 tablet by mouth every * LUBIPROSTONE 24 MCG CAPSULE Take 24 mcg by mouth twice da* MULTI-VITAMIN ORAL Take by mouth once daily. CHOLECALCIFEROL (VITAMIN D3) * Take by mouth once daily. ZOLPIDEM 5 MG TABLET ASPIRIN 81 MG TABLET,DELAYED * Take 81 mg by mouth once michell* HYDROMORPHONE ER 32 MG TABLET* Take 1 tablet by mouth once d* HYDROMORPHONE 8 MG TABLET Take 8 mg by mouth every 6 ho* Problem List As Of Date 02/24/2018 Noted Resolved DISC DEGENERATION NOS [[id number]] INVALID FOR* LUMB DISC DIS W MYELOPAT [M51.06] INVALID FOR* DEPRESSIVE DISORDER NEC [F32.9] INVALID FOR* ANXIETY STATE NOS [F41.1] INVALID FOR* Insomnia [G47.00] INVALID FOR* LATERAL EPICONDYLITIS RIGHT [M77.10] INVALID FOR* Abnormal weight gain [R63.5] INVALID FOR*12/24/2011 Esophageal reflux [K21.9] INVALID FOR* More... BACKACHE NOS [M54.9] INVALID FOR* ACUTE CHOLECYSTITIS [K81.0] INVALID FOR* Acute gastritis without mention of hemorrhage [*INVALID FOR*04/25/2016 Lung nodules [R91.8] More... Plantar Wart: L foot plantar medial mid heel [B*INVALID FOR* Cryosurgical Scar of skin of plantar L foot [L9*INVALID FOR* Kidney stone on right side [N20.0] INVALID FOR*02/14/2011 More... Herniated nucleus pulposus, lumbar [M51.26] INVALID FOR* Degenerative disk disease [HAL1661] INVALID FOR* Diaphragmatic hernia without mention of obstruc*INVALID FOR* Postmenopausal atrophic vaginitis [N95.2] INVALID FOR* Greater trochanteric bursitis of right hip [M70*INVALID FOR* Milial cyst [L72.0] INVALID FOR* Epidermal cyst [L72.0] INVALID FOR* Actinic skin damage [L57.8] INVALID FOR* Dysuria [R30.0] INVALID FOR*04/25/2016 UTI (lower urinary tract infection) [N39.0] INVALID FOR*04/25/2016 Urethral stenosis [N35.9] INVALID FOR* Blue toes [R23.0] INVALID FOR* Carotid artery disease (HCC) [I77.9] More... Feeling of incomplete bladder emptying [R39.14] INVALID FOR* Urinary incontinence [R32] INVALID FOR* More... Raynaud's phenomenon without gangrene [I73.00] INVALID FOR* More... Trigger ring finger of right hand [M65.341] INVALID FOR* Dupuytren's disease of palm [M72.0] INVALID FOR* Breast lump on left side at 9 o'clock position *INVALID FOR* Therapeutic opioid-induced constipation (OIC) [*INVALID FOR* More... Gastroesophageal reflux disease without esophag*INVALID FOR* More... History of colonic polyps [Z86.010] INVALID FOR* More... Encounter Status:Closed by DENNYS QUIROZ on 03/03/18 PROGRESS Observed: 11/20/2017 Status: COMPLETED Source: [place] 10:12 AM [facility] REPOSITORY HNO ID: [id number] Author: Cy Pulido Service: (none) Author Type: Physician Type: Progress Notes Filed: 11/25/2017 9:10 AM Note Text: Make sure other labs get done too PROGRESS Observed: 11/19/2017 Status: COMPLETED Source: [place] 12:59 PM [facility] REPOSITORY HNO ID: [id number] Author: Consuelo Kirkland Cma Service: (none) Author Type: (none) Type: Progress Notes Filed: 11/25/2017 9:10 AM Note Text: I spoke with Marjorie and she agreed to schedule a follow up appointment with lab work prior. The patient has been identified by name and date of : YES I have scheduled the patient for an appointment on 11/19/2017. The patient will report to the lab prior to the visit. I have pended the following lab orders: Pended Orders ID Status Description Pended By When Reason [id number] Pended LIPID PANEL BASIC Consuelo Kirkland Cma 11/15/17 1014 PHMA Documentation 11/19/2017 Opts out of [facility] No Appointments Scheduled Scheduled PCP Appt Consuelo Kirkland Cma PROGRESS Observed: 11/15/2017 Status: COMPLETED Source: [place] 10:09 AM [facility] REPOSITORY HNO ID: [id number] Author: Consuelo Kirkland Cma Service: (none) Author Type: (none) Type: Progress Notes Filed: 11/25/2017 9:10 AM Note Text: PHMA TEAMLET DOCUMENTATION Provider Action/FYI: Please file labs. Will make follow up next available. PSR Action/FYI: Teamlet has identified patient by name and date of . Team: Dr. Olu Madison, Lori Cordero Holly ? Last Office Visit:10/03/2017 ? Next Office Visit: Visit date not found ? Last BP/Labs: Blood Pressure: Last 3 Encounter BP Readings: Date: BP: 08/22/2017 134/74 07/02/2017 139/79 07/02/2017 132/61 Lipids: Cholesterol, Total (mg/dL) Date Value 10/09/2016 174 05/04/2015 129 HDL Cholesterol (mg/dL) Date Value 10/09/2016 57 05/04/2015 58 LDL Cholesterol (mg/dL) Date Value 10/09/2016 81 05/04/2015 53 Triglyceride (mg/dL) Date Value 10/09/2016 178 05/04/2015 89 HGB A1C: No results found for: HBA1C TSH: TSH (uU/mL) Date Value 10/05/2014 1.450 ) Care Gap: CVD - Plan: ? Confirm PCP / Status ? Type of appointment needed: Follow-up lipid next available with Provider pcp or warp knitter ? Labs, HM and Immunization: Health Maintenance Due: HEPATITIS C SCREENING due on 1996 TETANUS due on 04/06/2016 PNEUMOVAX AGE 65 AND OVER WITH 5YR LOOKBACK(1) due on 2017 Consuelo Kirkland Cma CNPTOUTREACH Observed: 11/15/2017 Status: COMPLETED Source: [place] 12:00 AM [facility] REPOSITORY Patient Outreach (INTMWS) MARJORIE HOSKINS ([id number]) 1950 F Date Time Provider Department 11/15/17 CONSUELO KIRKLAND (TALHA) INTMWS During your visit today, we recorded the following information about you: Consuelo Kirkland Cma 11/25/2017 9:10 AM Signed PHMA TEAMLET DOCUMENTATION Provider Action/FYI: Please file labs. Will make follow up next available. PSR Action/FYI: Teamlet has identified patient by name and date of . Team: Dr. Olu Madison, Lori Cordero Holly ? Last Office Visit:10/03/2017 ? Next Office Visit: Visit date not found ? Last BP/Labs: Blood Pressure: Last 3 Encounter BP Readings: Date: BP: 08/22/2017 134/74 07/02/2017 139/79 07/02/2017 132/61 Lipids: Cholesterol, Total (mg/dL) Date Value 10/09/2016 174 05/04/2015 129 HDL Cholesterol (mg/dL) Date Value 10/09/2016 57 05/04/2015 58 LDL Cholesterol (mg/dL) Date Value 10/09/2016 81 05/04/2015 53 Triglyceride (mg/dL) Date Value 10/09/2016 178 05/04/2015 89 HGB A1C: No results found for: HBA1C TSH: TSH (uU/mL) Date Value 10/05/2014 1.450 ) Care Gap: CVD - Plan: ? Confirm PCP / Status ? Type of appointment needed: Follow-up lipid next available with Provider pcp or warp knitter ? Labs, HM and Immunization: Health Maintenance Due: HEPATITIS C SCREENING due on 1996 TETANUS due on 04/06/2016 PNEUMOVAX AGE 65 AND OVER WITH 5YR LOOKBACK(1) due on 2017 Consuelo Kirkland Consuelo Brock Cma 11/25/2017 9:10 AM Signed I spoke with Marjorie and she agreed to schedule a follow up appointment with lab work prior. The patient has been identified by name and date of : YES I have scheduled the patient for an appointment on 11/19/2017. The patient will report to the lab prior to the visit. I have pended the following lab orders: Pended Orders ID Status Description Pended By When Reason [id number] Pended LIPID PANEL BASIC Isael HansonConsuelo 11/15/17 1014 PHMA Documentation 11/19/2017 Opts out of [facility] No Appointments Scheduled Scheduled PCP Appt Consuelo Kirkland Cma HectorCy gallego Solis 11/25/2017 9:10 AM Signed Make sure other labs get done too Allergies As of Date: 11/15/2017 Noted Allergy Reaction OXYCODONE HCL 10/18/2014 9 - Itching PERCOCET (OXYCODONE-ACETAMINOPHEN)01/17/2007 9 - Itching Date Reviewed: 08/22/2017 Reviewed by: Kaitlin Lawton MA - Fully Assessed Reason for Visit: PHMA/Care Gap Outreach [3605] Primary Visit Diagnosis:Bilateral carotid artery disease (HCC) [I77.9] Order(s):LIPID PANEL BASIC [SQLIPB] Order #: [id number] FUTURE Prescriptions as of 11/15/2017 Sig: NIFEDIPINE ER 30 MG TABLET,EX* Take 1 tablet by mouth once d* SIMVASTATIN 40 MG TABLET Take 1 tablet by mouth daily * ESOMEPRAZOLE MAGNESIUM 40 MG * Take 1 capsule by mouth once * ONDANSETRON 4 MG DISINTEGRATI* Take 1 tablet by mouth every * LUBIPROSTONE 24 MCG CAPSULE Take 24 mcg by mouth twice da* MULTI-VITAMIN ORAL Take by mouth once daily. CHOLECALCIFEROL (VITAMIN D3) * Take by mouth once daily. ZOLPIDEM 5 MG TABLET ASPIRIN 81 MG TABLET,DELAYED * Take 81 mg by mouth once michell* HYDROMORPHONE ER 32 MG TABLET* Take 1 tablet by mouth once d* HYDROMORPHONE 8 MG TABLET Take 8 mg by mouth every 6 ho* Problem List As Of Date 11/15/2017 Noted Resolved DISC DEGENERATION NOS [[id number]] INVALID FOR* LUMB DISC DIS W MYELOPAT [M51.06] INVALID FOR* DEPRESSIVE DISORDER NEC [F32.9] INVALID FOR* ANXIETY STATE NOS [F41.1] INVALID FOR* Insomnia [G47.00] INVALID FOR* LATERAL EPICONDYLITIS RIGHT [M77.10] INVALID FOR* Abnormal weight gain [R63.5] INVALID FOR*12/24/2011 Esophageal reflux [K21.9] INVALID FOR* More... BACKACHE NOS [M54.9] INVALID FOR* ACUTE CHOLECYSTITIS [K81.0] INVALID FOR* Acute gastritis without mention of hemorrhage [*INVALID FOR*04/25/2016 Lung nodules [R91.8] More... Plantar Wart: L foot plantar medial mid heel [B*INVALID FOR* Cryosurgical Scar of skin of plantar L foot [L9*INVALID FOR* Kidney stone on right side [N20.0] INVALID FOR*02/14/2011 More... 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 Feeling of incomplete bladder emptying [R39.14] INVALID FOR* Urinary incontinence [R32] INVALID FOR* More... Raynaud's phenomenon without gangrene [I73.00] INVALID FOR* More... Trigger ring finger of right hand [M65.341] INVALID FOR* Dupuytren's disease of palm [M72.0] INVALID FOR* Breast lump on left side at 9 o'clock position *INVALID FOR* Therapeutic opioid-induced constipation (OIC) [*INVALID FOR* More... Gastroesophageal reflux disease without esophag*INVALID FOR* More... History of colonic polyps [Z86.010] INVALID FOR* More... Encounter Status:Closed by CONSUELO KIRKLAND CMA on 11/25/17 PROGRESS Observed: 08/22/2017 Status: COMPLETED Source: [place] 1:56 PM [facility] REPOSITORY HNO ID: [id number] Author: Laura Nunez Service: (none) Author Type: Nurse Practitioner Type: Progress Notes Filed: 08/22/2017 5:46 PM Note Text: Marjorie Hoskins a 67 year old female who is returning for follow up regarding dyspepsia and a history of polyps. Her is present for this encounter. I saw the patient on 07/02/18. That note has been reviewed. At that time she reported dyspepsia in spite of Nexium. She also reported constipation. She had been started on Movantic with short lived improvement. She used Amitiza twice before her appointment, and reported diarrhea. The patient was seen by Dr. Villela for upper endoscopy and colonoscopy 08/05/17. The procedure report has been reviewed and findings as follows: EGD Impression: - Normal esophagus. ? - Erythematous mucosa in the antrum. Biopsied. ? - Normal examined duodenum. FINAL DIAGNOSIS Gastric antrum, biopsy - No significant pathologic change. Colonoscopy Impression:- Diverticulosis in the sigmoid colon. ? - No specimens collected. I have reviewed the procedure and pathology reports, as well as the images, with the patient. Presenting complaint: The patient presents today reporting that she is taking Amitiza without any change. She had gotten this from another provider. When asked, she notes that she doesn't take it with food. She wasn't aware that she should. She also doesn't use a fiber supplement. We discussed that it would be difficult to get enough dietary fiber. Her constipation has a lot to do with the pain medication. Unfortunately, Movantic didn't give her any relief. The patient continues with nausea that comes as the day goes on. We have discussed trying to get her bowel routine better, than seeing if the nausea persists. She agrees with the strategy. REVIEW OF SYSTEMS: GENERAL: No weight loss, malaise or fevers GI: The patient states that her appetite has been adequate. She does get hungry. There has been nausea, no vomiting. Small hard bowel movements. All other reviewed and negative other than HPI. PAST MEDICAL HISTORY Diagnosis Date - ANXIETY STATE NOS 01/15/2006 - Benign neoplasm of colon 02/2004 colon polyps - Carotid artery disease (HCC) MIld on Life Screening done Jul 04 2010 - Depressive disorder, not elsewhere classified - Diaphragmatic hernia without mention of obstruction or gangrene - DISC DEGENERATION NOS 06/18/2005 - Diverticulosis of colon (without mention of hemorrhage) - Esophageal reflux - [place] (hard of hearing) Wears bilateral hearing aids - Hypertension - INSOMNIA NOS 02/04/2006 - LUMB DISC DIS W MYELOPAT 06/20/2005 - Lung nodules Workup jeffy Cano PAST SURGICAL HISTORY Procedure Laterality Date - COLONOSCOP W/ OR W/O BRS SPEC 02/28/2004 Colonoscopy, with bx. - COLONOSCOP W/ OR W/O BRS SPEC 06/05/2012 Colonoscopy - COLONOSCOP W/ OR W/O BRS SPEC 08/05/2017 Repeat Colon in 5 years - DANDC, DIAG AND/OR THERAPEUTIC 11/18/1997 Dilation AND curettage - EGD W/O BRSH SPECIMEN W/BX 06/19/11 - EGD W/O BRSH SPECIMEN W/BX 07-09-11 - EGD W/O OR W/BRUSH/WASH , 02/28/2004 EGD - EGD W/O OR W/BRUSH/WASH 12/28/08 EGD - EGD W/O OR W/BRUSH/WASH 08/05/2017 EGD - G-ESOPH REFLX TST W/ELECTROD 07-09-11 - LIGATE FALLOPIAN TUBE 1979 Tubal ligation - PAST SURGICAL HISTORY OF fusion L4-L5 - PAST SURGICAL HISTORY OF Aug 2008 cholecystectomy (Dr. Padilla) - PAST SURGICAL HISTORY OF FNA-lung - PAST SURGICAL HISTORY OF right ear - REVISE MEDIAN N/CARPAL TUNNEL SURG 1988 Carpal tunnel decomp, bilat FAMILY HISTORY Problem Relation Age of Onset - Diabetes Father - Alcohol/Drug Father - Coronary Artery Disease Mother - Alcohol/Drug Mother - Cancer Maternal Grandfather lung - Heart Maternal Grandmother - Ovarian Cancer [OTHER] Sister - Breast Cancer Sister - Diabetes Maternal Aunt one aunt with ESRD from DM--no on HD - Diabetes Other maternal cousins with DM - Ischemic Heart Disease Maternal Aunt in her 40's from heart attack - Cervical Cancer Sister Current Outpatient Prescriptions: ondansetron orally disintegrating (ZOFRAN ODT) 4 mg disintegrating tablet Take 1 tablet by mouth every 6 hours as needed for Nausea/Vomiting. Disp: 30 tablet Rfl: 1 lubiprostone (AMITIZA) 24 mcg capsule Take 24 mcg by mouth twice daily with meals. Disp: Rfl: bisacodyl EC (DULCOLAX, BISACODYL,) 5 mg EC tablet Take as instructed for colonoscopy prep. Disp: 4 tablet Rfl: 0 MULTI-VITAMIN ORAL Take by mouth once daily. Disp: Rfl: cholecalciferol, vitamin D3, 2,000 unit chew Take by mouth once daily. Disp: Rfl: zolpidem (AMBIEN) 5 mg tablet Disp: Rfl: 3 simvastatin (ZOCOR) 40 mg tablet Take 1 tablet by mouth daily at bedtime. For cholesterols. Disp: 90 tablet Rfl: 3 NIFEdipine ER (PROCARDIA XL) 30 mg 24 hr tablet Take 1 tablet by mouth once daily. As directed for Blood Pressure and for Raynaud's Disp: 90 tablet Rfl: 3 esomeprazole (NEXIUM) 40 mg capsule Take 1 capsule by mouth once daily. Disp: 90 capsule Rfl: 3 aspirin, enteric coated (ASPIRIN, ENTERIC COATED) 81 mg EC tablet Take 81 mg by mouth once daily. Disp: Rfl: HYDROmorphone (EXALGO ER) 32 mg Tb24 Take 1 tablet by mouth once daily. Disp: Rfl: HYDROmorphone HCl (HYDROMORPHONE) 8 mg tablet Take 8 mg by mouth every 6 hours as needed. Disp: Rfl: No current facility-administered medications for this visit. SOCIAL HISTORY: Reviewed. PHYSICAL EXAMINATION: Blood pressure 134/74, pulse 112, height 162.6 cm (5' 4), weight 75.2 kg (165 lb 12.8 oz). General Appearance: Well appearing, alert, in no acute distress, well-hydrated, well nourished. Skin: Skin color, texture, turgor normal, no suspicious rashes or lesions. Eyes: Anicteric sclera. Lungs: Lungs clear to auscultation. Heart: RRR without murmur. Abdomen: Abdomen soft, non-tender. Bowel sounds normal. Impression: opioid induced constipation 2)dyspepsia Plan: Take Amitiza with food. Start Benefiber. Report back in a couple weeks. Sooner, with any concerns. Surveillance colonoscopy in 5 years - EGD at that time, if still on PPI. She agrees with this plan. I have personally interviewed and examined this patient. I have reviewed the information that the MA entered for this encounter. Greater than 30 minutes total time used this visit to review old chart, review new information, update current history and evaluate patient. A majority of the time was spent in discussion and counseling to formulate the plan. ESTELA Sutton CNP Observed: 08/13/2017 Status: COMPLETED Source: [place] 12:00 AM [facility] REPOSITORY Refill (INTMWS) MARJORIE HOSKINS ([id number]) 1950 F Date Time Provider Department 08/13/17 CY PULIDO INTMWS During your visit today, we recorded the following information about you: Orestes Glass RN 08/13/2017 12:53 PM Signed Patient reports she is having nausea every time she eats. Had colonoscopy last week and is scheduled for f/u with Samantha Nunez NP, but will need this medication before then. ADELE Madison, [employer] O[employer]ATOR 08/15/2017 7:48 AM Signed Current Outpatient Prescriptions: lubiprostone (AMITIZA) 24 mcg capsule Take 24 mcg by mouth twice daily with meals. bisacodyl EC (DULCOLAX, BISACODYL,) 5 mg EC tablet Take as instructed for colonoscopy prep. MULTI-VITAMIN ORAL Take by mouth once daily. cholecalciferol, vitamin D3, 2,000 unit chew Take by mouth once daily. zolpidem (AMBIEN) 5 mg tablet simvastatin (ZOCOR) 40 mg tablet Take 1 tablet by mouth daily at bedtime. For cholesterols. NIFEdipine ER (PROCARDIA XL) 30 mg 24 hr tablet Take 1 tablet by mouth once daily. As directed for Blood Pressure and for Raynaud's esomeprazole (NEXIUM) 40 mg capsule Take 1 capsule by mouth once daily. aspirin, enteric coated (ASPIRIN, ENTERIC COATED) 81 mg EC tablet Take 81 mg by mouth once daily. HYDROmorphone (EXALGO ER) 32 mg Tb24 Take 1 tablet by mouth once daily. HYDROmorphone HCl (HYDROMORPHONE) 8 mg tablet Take 8 mg by mouth every 6 hours as needed. No current facility-administered medications for this visit. Allergies As of Date: 08/13/2017 Noted Allergy Reaction OXYCODONE HCL 10/18/2014 9 - Itching PERCOCET (OXYCODONE-ACETAMINOPHEN)01/17/2007 9 - Itching Date Reviewed: 08/05/2017 Reviewed by: Indira (Rn) ESTELA Lucio - Fully Assessed Reason for Visit: Refill Request [94] Visit Diagnosis:Nausea [R11.0] Order(s):ondansetron orally disintegrating (ZOFRAN ODT) 4 mg disintegrating tabletTake 1 tablet by mouth every 6 hours as needed for Nausea/Vomiting.Disp: 30 tabletRfl: 1 Prescriptions as of 08/13/2017 Sig: ONDANSETRON 4 MG DISINTEGRATI* Take 1 tablet by mouth every * LUBIPROSTONE 24 MCG CAPSULE Take 24 mcg by mouth twice da* BISACODYL 5 MG TABLET,DELAYED* Take as instructed for colono* MULTI-VITAMIN ORAL Take by mouth once daily. CHOLECALCIFEROL (VITAMIN D3) * Take by mouth once daily. ZOLPIDEM 5 MG TABLET SIMVASTATIN 40 MG TABLET Take 1 tablet by mouth daily * NIFEDIPINE ER 30 MG TABLET,EX* Take 1 tablet by mouth once d* ESOMEPRAZOLE MAGNESIUM 40 MG * Take 1 capsule by mouth once * ASPIRIN 81 MG TABLET,DELAYED * Take 81 mg by mouth once michell* HYDROMORPHONE ER 32 MG TABLET* Take 1 tablet by mouth once d* HYDROMORPHONE 8 MG TABLET Take 8 mg by mouth every 6 ho* Problem List As Of Date 08/13/2017 Noted Resolved DISC DEGENERATION NOS [[id number]] INVALID FOR* LUMB DISC DIS W MYELOPAT [M51.06] INVALID FOR* DEPRESSIVE DISORDER NEC [F32.9] INVALID FOR* ANXIETY STATE NOS [F41.1] INVALID FOR* Insomnia [G47.00] INVALID FOR* LATERAL EPICONDYLITIS RIGHT [M77.10] INVALID FOR* Abnormal weight gain [R63.5] INVALID FOR*12/24/2011 Esophageal reflux [K21.9] INVALID FOR* More... BACKACHE NOS [M54.9] INVALID FOR* ACUTE CHOLECYSTITIS [K81.0] INVALID FOR* Acute gastritis without mention of hemorrhage [*INVALID FOR*04/25/2016 Lung nodules [R91.8] More... Plantar Wart: L foot plantar medial mid heel [B*INVALID FOR* Cryosurgical Scar of skin of plantar L foot [L9*INVALID FOR* Kidney stone on right side [N20.0] INVALID FOR*02/14/2011 More... 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 Feeling of incomplete bladder emptying [R39.14] INVALID FOR* Urinary incontinence [R32] INVALID FOR* More... Raynaud's phenomenon without gangrene [I73.00] INVALID FOR* More... Trigger ring finger of right hand [M65.341] INVALID FOR* Dupuytren's disease of palm [M72.0] INVALID FOR* Breast lump on left side at 9 o'clock position *INVALID FOR* Therapeutic opioid-induced constipation (OIC) [*INVALID FOR* More... Gastroesophageal reflux disease without esophag*INVALID FOR* More... History of colonic polyps [Z86.010] INVALID FOR* More... Prescriptions ordered this encounter Disp Refills Start End ONDANSETRON 4 MG DISINTEGRATING TABL* 30 t* 1 08/15/2017 Route: ORAL Sig: Take 1 tablet by mouth every 6 hours as needed for Nausea/Vomiting. Encounter Status:Closed by DENNYS QUIROZ on 08/15/17 TEMITOPE Observed: 08/07/2017 Status: COMPLETED Source: [place] 12:00 AM [facility] REPOSITORY Telephone (GASTTW) MARJORIE HOSKINS ([id number]) 1950 F Date Time Provider Department 08/07/17 MORGAN VILLELA During your visit today, we recorded the following information about you: Morgan Villela MD 08/07/2017 2:57 PM Signed Stomach biopsies without significant inflammation RAMÍREZ CH MA 08/07/2017 3:04 PM Signed Called patient per message below. Notified of results. Patient asked that if her nausea could be coming from the diverticulitis then since her stomach biopsies were ok. Please advise. Thanks RAMÍREZ CH MA August 07, 2017 3:04 PM RAMÍREZ CH MA 08/07/2017 3:58 PM Signed Spoke to patient and relayed message below. Patient is scheduled on 08/20. Patient verbalizes understanding and has no other questions or concerns at this time. RAMÍREZ CH MA August 07, 2017 3:58 PM Morgan Villela ?You 23 minutes ago (3:30 PM) ? ? ? No, nausea is not a symptom of diverticulitis. ?Just because there is no inflammation of the stomach does not mean the nausea is not originating in her stomach. ?She should have an appointment to see Solange Nunez in [place] if she doesn't have one already (Routing comment) Allergies As of Date: 08/07/2017 Noted Allergy Reaction OXYCODONE HCL 10/18/2014 9 - Itching PERCOCET (OXYCODONE-ACETAMINOPHEN)01/17/2007 9 - Itching Date Reviewed: 08/05/2017 Reviewed by: Indira (Estela) ESTELA Lucio - Fully Assessed Reason for Visit: Results [95] Prescriptions as of 08/07/2017 Sig: LUBIPROSTONE 24 MCG CAPSULE Take 24 mcg by mouth twice da* BISACODYL 5 MG TABLET,DELAYED* Take as instructed for colono* MULTI-VITAMIN ORAL Take by mouth once daily. CHOLECALCIFEROL (VITAMIN D3) * Take by mouth once daily. ZOLPIDEM 5 MG TABLET SIMVASTATIN 40 MG TABLET Take 1 tablet by mouth daily * NIFEDIPINE ER 30 MG TABLET,EX* Take 1 tablet by mouth once d* ESOMEPRAZOLE MAGNESIUM 40 MG * Take 1 capsule by mouth once * ASPIRIN 81 MG TABLET,DELAYED * Take 81 mg by mouth once michell* HYDROMORPHONE ER 32 MG TABLET* Take 1 tablet by mouth once d* HYDROMORPHONE 8 MG TABLET Take 8 mg by mouth every 6 ho* Problem List As Of Date 08/07/2017 Noted Resolved DISC DEGENERATION NOS [[id number]] INVALID FOR* LUMB DISC DIS W MYELOPAT [M51.06] INVALID FOR* DEPRESSIVE DISORDER NEC [F32.9] INVALID FOR* ANXIETY STATE NOS [F41.1] INVALID FOR* Insomnia [G47.00] INVALID FOR* LATERAL EPICONDYLITIS RIGHT [M77.10] INVALID FOR* Abnormal weight gain [R63.5] INVALID FOR*12/24/2011 Esophageal reflux [K21.9] INVALID FOR* More... BACKACHE NOS [M54.9] INVALID FOR* ACUTE CHOLECYSTITIS [K81.0] INVALID FOR* Acute gastritis without mention of hemorrhage [*INVALID FOR*04/25/2016 Lung nodules [R91.8] More... Plantar Wart: L foot plantar medial mid heel [B*INVALID FOR* Cryosurgical Scar of skin of plantar L foot [L9*INVALID FOR* Kidney stone on right side [N20.0] INVALID FOR*02/14/2011 More... Herniated nucleus pulposus, lumbar [M51.26] INVALID FOR* Degenerative disk disease [NBA3080] INVALID FOR* Diaphragmatic hernia without mention of obstruc*INVALID FOR* Postmenopausal atrophic vaginitis [N95.2] INVALID FOR* Greater trochanteric bursitis of right hip [M70*INVALID FOR* Milial cyst [L72.0] INVALID FOR* Epidermal cyst [L72.0] INVALID FOR* Actinic skin damage [L57.8] INVALID FOR* Dysuria [R30.0] INVALID FOR*04/25/2016 UTI (lower urinary tract infection) [N39.0] INVALID FOR*04/25/2016 Urethral stenosis [N35.9] INVALID FOR* Blue toes [R23.0] INVALID FOR* Carotid artery disease (HCC) [I77.9] More... Feeling of incomplete bladder emptying [R39.14] INVALID FOR* Urinary incontinence [R32] INVALID FOR* More... Raynaud's phenomenon without gangrene [I73.00] INVALID FOR* More... Trigger ring finger of right hand [M65.341] INVALID FOR* Dupuytren's disease of palm [M72.0] INVALID FOR* Breast lump on left side at 9 o'clock position *INVALID FOR* Therapeutic opioid-induced constipation (OIC) [*INVALID FOR* More... Gastroesophageal reflux disease without esophag*INVALID FOR* More... History of colonic polyps [Z86.010] INVALID FOR* More... Encounter Status:Closed by MORGAN VILLELA MD on 08/07/17 CNPN Observed: 08/06/2017 Status: COMPLETED Source: [place] 12:00 AM [facility] REPOSITORY Telephone (TWPROV) MARJORIE HOSKINS ([id number]) 1950 F Date Time Provider Department 08/06/17 MORGAN VILLELA [employer] During your visit today, we recorded the following information about you: Morgan Villela MD 08/06/2017 2:34 PM Signed Stomach biopsies without significant inflammation Ju Carlisle LPN 08/20/2017 10:33 AM Signed Spoke with patient and information given below. Ju Carlisle LPN Allergies As of Date: 08/06/2017 Noted Allergy Reaction OXYCODONE HCL 10/18/2014 9 - Itching PERCOCET (OXYCODONE-ACETAMINOPHEN)01/17/2007 9 - Itching Date Reviewed: 08/05/2017 Reviewed by: Indira (Rn) ESTELA Lucio - Fully Assessed Reason for Visit: Results [95] Prescriptions as of 08/06/2017 Sig: LUBIPROSTONE 24 MCG CAPSULE Take 24 mcg by mouth twice da* BISACODYL 5 MG TABLET,DELAYED* Take as instructed for colono* MULTI-VITAMIN ORAL Take by mouth once daily. CHOLECALCIFEROL (VITAMIN D3) * Take by mouth once daily. ZOLPIDEM 5 MG TABLET SIMVASTATIN 40 MG TABLET Take 1 tablet by mouth daily * NIFEDIPINE ER 30 MG TABLET,EX* Take 1 tablet by mouth once d* ESOMEPRAZOLE MAGNESIUM 40 MG * Take 1 capsule by mouth once * ASPIRIN 81 MG TABLET,DELAYED * Take 81 mg by mouth once michell* HYDROMORPHONE ER 32 MG TABLET* Take 1 tablet by mouth once d* HYDROMORPHONE 8 MG TABLET Take 8 mg by mouth every 6 ho* Problem List As Of Date 08/06/2017 Noted Resolved DISC DEGENERATION NOS [[id number]] INVALID FOR* LUMB DISC DIS W MYELOPAT [M51.06] INVALID FOR* DEPRESSIVE DISORDER NEC [F32.9] INVALID FOR* ANXIETY STATE NOS [F41.1] INVALID FOR* Insomnia [G47.00] INVALID FOR* LATERAL EPICONDYLITIS RIGHT [M77.10] INVALID FOR* Abnormal weight gain [R63.5] INVALID FOR*12/24/2011 Esophageal reflux [K21.9] INVALID FOR* More... BACKACHE NOS [M54.9] INVALID FOR* ACUTE CHOLECYSTITIS [K81.0] INVALID FOR* Acute gastritis without mention of hemorrhage [*INVALID FOR*04/25/2016 Lung nodules [R91.8] More... Plantar Wart: L foot plantar medial mid heel [B*INVALID FOR* Cryosurgical Scar of skin of plantar L foot [L9*INVALID FOR* Kidney stone on right side [N20.0] INVALID FOR*02/14/2011 More... Herniated nucleus pulposus, lumbar [M51.26] INVALID FOR* Degenerative disk disease [FQO8022] INVALID FOR* Diaphragmatic hernia without mention of obstruc*INVALID FOR* Postmenopausal atrophic vaginitis [N95.2] INVALID FOR* Greater trochanteric bursitis of right hip [M70*INVALID FOR* Milial cyst [L72.0] INVALID FOR* Epidermal cyst [L72.0] INVALID FOR* Actinic skin damage [L57.8] INVALID FOR* Dysuria [R30.0] INVALID FOR*04/25/2016 UTI (lower urinary tract infection) [N39.0] INVALID FOR*04/25/2016 Urethral stenosis [N35.9] INVALID FOR* Blue toes [R23.0] INVALID FOR* Carotid artery disease (HCC) [I77.9] More... Feeling of incomplete bladder emptying [R39.14] INVALID FOR* Urinary incontinence [R32] INVALID FOR* More... Raynaud's phenomenon without gangrene [I73.00] INVALID FOR* More... Trigger ring finger of right hand [M65.341] INVALID FOR* Dupuytren's disease of palm [M72.0] INVALID FOR* Breast lump on left side at 9 o'clock position *INVALID FOR* Therapeutic opioid-induced constipation (OIC) [*INVALID FOR* More... Gastroesophageal reflux disease without esophag*INVALID FOR* More... History of colonic polyps [Z86.010] INVALID FOR* More... Encounter Status:Closed by MORGAN VILLELA MD on 08/07/17 NURSING PROG Observed: 08/05/2017 Status: COMPLETED Source: [place] 3:00 PM [facility] REPOSITORY HNO ID: [id number] Author: Indira DamicoRnKurt Lucio RN Service: (none) Author Type: Registered Nurse Type: Nursing Progress Note Filed: 08/05/2017 3:12 PM Note Text: Patient did not experience a fall prior to discharge. Patient did not experience a burn prior to discharge. Indira uLcio RN NURSING PROG Observed: 08/05/2017 Status: COMPLETED Source: [place] 2:50 PM [facility] REPOSITORY HNO ID: [id number] Author: Indira DamicoRnKurt Lucio RN Service: (none) Author Type: Registered Nurse Type: Nursing Progress Note Filed: 08/05/2017 3:20 PM Note Text: Abd soft and nondistended. Denies pain or nausea. Dr. Villela was by and spoke with both pt and . No complaints. Indira Lucio RN PT ED Observed: 08/05/2017 Status: COMPLETED Source: [place] 2:30 PM [facility] REPOSITORY HNO ID: [id number] Author: Indira Lucio RN Service: (none) Author Type: Registered Nurse Type: Patient Education Filed: 08/05/2017 3:21 PM Note Text: POST OP LEARNING RESPONSE INSTRUCTION PROVIDED TO: Patient and Spouse METHOD OF INSTRUCTION: Individual instruction Written instruction - handouts Verbal instruction PATIENT / FAMILY RESPONSE: Verbalizes understanding of: MEDICAL REGIMEN-Importance of following prescribed medical regimen POST-PROCEDURE INSTRUCTIONS-Correct actions to take to reduce post procedure complications WORSENING CONDITION-Signs and symptoms of a worsening condition that warrant a call to the physician FOLLOW-UP PLAN: Follow up phone call. Contact information given. SUPPLEMENTAL MATERIAL: Procedure discharge instructions REFERRAL (RECOMMENDATION): None Electronically Signed By: Indira Lucio RN In Department: AMBULATORY SURGERY NURSING PROG Observed: 08/05/2017 Status: COMPLETED Source: [place] 1:56 PM [facility] REPOSITORY HNO ID: [id number] Author: Indira DamicoRn) ESTELA Lucio Service: (none) Author Type: Registered Nurse Type: Nursing Progress Note Filed: 08/05/2017 2:23 PM Note Text: Removed monitoring specialist pad from pt's back and pt has a reddened area with the outline of the patch. Area noticed by . Pt and instructed to use hydrocortisone cream to area. Indira Lucio RN NURSING PROG Observed: 08/05/2017 Status: COMPLETED Source: [place] 1:54 PM [facility] REPOSITORY HNO ID: [id number] Author: Ladonna Velázquez RN Service: (none) Author Type: Registered Nurse Type: Nursing Progress Note Filed: 08/05/2017 1:55 PM Note Text: Patient did not experience a fall within the Intraoperative area. Patient did not experience a burn within the Intraoperative area. Ladonna Velázquez RN HISTORY PHYSICAL Observed: 08/05/2017 Status: COMPLETED Source: [place] 1:22 PM [facility] REPOSITORY HNO ID: [id number] Author: Morgan Villela Service: Gastroenterology Author Type: Physician Type: HANDP Filed: 08/05/2017 1:23 PM Note Text: PROCEDURAL SEDATION HISTORY AND PHYSICAL EXAM SERVICE DATE: 08/05/2017 SERVICE TIME: 1:22 PM SUBJECTIVE HPI: This is a 67 year old female who presents with GERD and history of colon polyp PAST ANESTHESIA HISTORY: No history of adverse event PAST MEDICAL HISTORY Diagnosis Date - ANXIETY STATE NOS 01/15/2006 - Benign neoplasm of colon 02/2004 colon polyps - Carotid artery disease (HCC) MIld on Life Screening done Jul 04 2010 - Depressive disorder, not elsewhere classified - Diaphragmatic hernia without mention of obstruction or gangrene - DISC DEGENERATION NOS 06/18/2005 - Diverticulosis of colon (without mention of hemorrhage) - Esophageal reflux - [place] (hard of hearing) Wears bilateral hearing aids - Hypertension - INSOMNIA NOS 02/04/2006 - LUMB DISC DIS W MYELOPAT 06/20/2005 - Lung nodules Workup jeffy Cano PAST SURGICAL HISTORY Procedure Laterality Date - COLONOSCOP W/ OR W/O BRSH SPEC 02/28/2004 Colonoscopy, with bx. - COLONOSCOP W/ OR W/O BRSH SPEC 06/05/2012 Colonoscopy - DANDC, DIAG AND/OR THERAPEUTIC 11/18/1997 Dilation AND curettage - EGD W/O BRSH SPECIMEN W/BX 06/19/11 - EGD W/O BRSH SPECIMEN W/BX 07-09-11 - EGD W/O OR W/BRUSH/WASH , 02/28/2004 EGD - EGD W/O OR W/BRUSH/WASH 12/28/08 EGD - G-ESOPH REFLX TST W/ELECTROD 07-09-11 - LIGATE FALLOPIAN TUBE 1979 Tubal ligation - PAST SURGICAL HISTORY OF fusion L4-L5 - PAST SURGICAL HISTORY OF Aug 2008 cholecystectomy (Dr. Padilla) - PAST SURGICAL HISTORY OF FNA-lung - PAST SURGICAL HISTORY OF right ear - REVISE [facility]IAN N/CARPAL TUNNEL SURG 1988 Carpal tunnel decomp, bilat Prior to Admission medications as of 08/05/17 1144 Medication Sig Last Dose Taking lubiprostone (AMITIZA) 24 mcg capsule Take 24 mcg by mouth twice daily with meals. 08/03/2017 Yes bisacodyl EC (DULCOLAX, BISACODYL,) 5 mg EC tablet Take as instructed for colonoscopy prep. 08/04/2017 at Unknown time Yes cholecalciferol, vitamin D3, 2,000 unit chew Take by mouth once daily. 08/04/2017 at Unknown time Yes zolpidem (AMBIEN) 5 mg tablet 08/05/2017 at 0200 Yes simvastatin (ZOCOR) 40 mg tablet Take 1 tablet by mouth daily at bedtime. For cholesterols. 08/04/2017 at Unknown time Yes NIFEdipine ER (PROCARDIA XL) 30 mg 24 hr tablet Take 1 tablet by mouth once daily. As directed for Blood Pressure and for Raynaud's 08/05/2017 at 0900 Yes esomeprazole (NEXIUM) 40 mg capsule Take 1 capsule by mouth once daily. 08/05/2017 at 0900 Yes aspirin, enteric coated (ASPIRIN, ENTERIC COATED) 81 mg EC tablet Take 81 mg by mouth once daily. 08/04/2017 at 2200 Yes HYDROmorphone (EXALGO ER) 32 mg Tb24 Take 1 tablet by mouth once daily. 08/05/2017 at 0900 Yes MULTI-VITAMIN ORAL Take by mouth once daily. HYDROmorphone HCl (HYDROMORPHONE) 8 mg tablet Take 8 mg by mouth every 6 hours as needed. 07/31/2017 ALLERGIES Allergen Reactions - Oxycodone Hcl Itching - Percocet [Oxycodone* Itching OBJECTIVE PHYSICAL EXAM: The remainder of the physical exam is noncontributory. AIRWAY: Airway Visualization of Uvula: Yes Mouth opening greater than 2 fingerbreadths: Yes Neck Full Range of Motion: Yes LUNGS: Lungs clear to auscultation, Good diaphragmatic excursion CARDIAC: Normal S1 and S2; no rubs, murmurs, or gallops ASSESSMENT/PLAN ASA Class: ASA Class:: Patient with mild systemic disease Active Problems: Gastroesophageal reflux disease without esophagitis Assessment AND Plan: GERD/EGD History of colonic polyps Assessment AND Plan: History of colon polyps/colonoscopy Resolved Problems: * No resolved hospital problems. * Provisional Diagnosis/Treatment Plan: The same as above SEDATION GOAL: Moderate SIGNATURE: Morgan Villela MD PATIENT NAME: Marjorie Hoskins DATE: August 05, 2017 TIME: 1:22 PM PAGER: NURSING PROG Observed: 08/05/2017 Status: COMPLETED Source: [place] 1:22 PM [facility] REPOSITORY HNO ID: [id number] Author: Muna Manzo (Rn) ESTELA Wen Service: Nursing Author Type: Registered Nurse Type: Nursing Progress Note Filed: 08/05/2017 1:23 PM Note Text: [facility] PRE-OP NURSING HAND OFF NOTE SBAR Hand off given to Shabnam Cosby RN. Hand off was communicated verbally and at the patient's bedside and all questions were answered. FALLS/LUNA Patient did not experience a fall within the Preoperative area. Patient did not experience a burn within the Preoperative area. Muna Wen, RN PT ED Observed: 08/05/2017 Status: COMPLETED Source: [place] 12:00 PM [facility] REPOSITORY HNO ID: [id number] Author: Muna Manzo (Rn) Behzad, RN Service: Nursing Author Type: Registered Nurse Type: Patient Education Filed: 08/05/2017 12:00 PM Note Text: PRE OP LEARNING ASSESSMENT PROCEDURE/SURGERY: GI PROCEDURES: Colonoscopy and EGD READINESS TO LEARN COGNITIVE ABILITY: Alert and oriented MOTIVATION TO LEARN: Eager FAMILY SUPPORT: High - Very involved in pt care PATIENT LEARNS BEST BY: Multiple Methods FACTORS AFFECTING LEARNING: None PHYSICAL LIMITATIONS AFFECTING LEARNING: None Electronically Signed By: Muna Wen RN In Department: AMBULATORY SURGERY SURGICAL PATHOLOGY Observed: 08/05/2017 Status: F Source: [place] 12:00 AM [facility] REPOSITORY Specimen originated from [facility] Specimen #: [id number] Submitting Physician: MORGAN VILLELA MD FINAL DIAGNOSIS Gastric antrum, biopsy - No significant pathologic change. G/gp 08/06/2017 Vega Rosado M.D. (Electronic Signature) SPECIMEN SUBMITTED A: ANTRUM, BIOPSY CLINICAL DATA K21.9, Z86.010 GROSS DESCRIPTION A. Received in formalin are two pieces of jara, soft tissue aggregating to 0.5 x 0.2 x 0.2 cm. Totally submitted in one cassette. Gross examination performed at [facility], [address] [place] [address] 08/06/2017 12:24:30 AM Date of Report: 08/06/2017 Date of Procedure: 08/05/2017 Date of Receipt: 08/05/2017 Submitted by: MORGAN VILLELA MD Location: W010 Diagnostic interpretation performed at [facility], [address] [place] [address]. ALLERGIES ALLERGIES DATE TYPE / CODE NAME / CODE REACTION SEVERITY SOURCE 06/16/2018 Drug oxycodone Itching Unknown [facility] Allergy/416 HCl/[id number]( Hospital 539173(SNOM XNORM) Repository ED CT) 10/18/2014 DRUG OXYCODONE HCL ITCHING [facility] INGREDI/[address] 684703(SNOM Repository ED CT) 01/17/2007 DRUG/360572 OXYCODONE-ACETAM ITCHING [facility] 003(SNOMED INOPHEN [address]) Repository ENCOUNTERS ENCOUNTERS ADMIT/DISCHARGE ACCOUNT ADMITTING ENCOUNTER LOCATION SOURCE NUMBER CLASS 07/07/2018/07/07/20 [id number] Ambulatory [address] Repository 06/24/2018 [id number] Ambulatory [facility] g:H.PMJ Repository 06/19/2018/06/23/20 [id number] Ambulatory [address] Repository 06/16/2018/06/16/20 [id number] Emergency [address] ing:ED Repository 06/10/2018 [id number] Ambulatory [facility] ing:PT Repository 06/04/2018/06/05/20 [id number] Ambulatory [address] Repository 05/14/2018 [id number] Ambulatory [facility] g:H.PMJ Repository 05/03/2018/05/05/20 [id number] Ambulatory [address] Repository 04/22/2018/04/22/20 [id number] Ambulatory [address] Repository 04/02/2018 [id number] [facility] g:H.PMJ Repository 03/15/2018/03/28/20 [id number] Ambulatory [address] Repository 03/03/2018/03/03/20 [id number] Ambulatory [address] Repository 02/19/2018 [id number] Ambulatory [facility] g:EderPMJ Repository 11/22/2017 [id number] Ambulatory [facility] g:EderPMJ Repository 08/22/2017/08/22/[id number] Repository 08/05/2017/08/05/[id number] Repository PAYERS PAYERS ENCOUNTER GUARANTOR PAYER SUBSCRIBER SOURCE 06/24/2018 MARJORIE Primary Insurance:[facility] [id number] [facility] [address] [facility] Number: Repository [address] [place] [address] [id number]: (311) Date:One [facility] 601192 () [address] [address]IK: 06/16/2018 GRACIE Ely Primary MARJORIE N [place] [id number] Insurance:[facility]HEALTH SYSTEMDOB[facility] [id number] 05/22/18Policy Number: Repository [id number]: [phone] [id number] (HP) Date:[id number] [address]SG: 06/16/2018 Secondary NOT GIVENUNK Silvestre Insurance:SELF PAY [facility] Number: Effective Repository Date:2018-06-16 06/10/2018 GRACIE Ely Primary MARJORIE N [place] [id number] Insurance:[facility] DURHEALTH SYSTEMDOB: [facility] [id number] UNICOMPPolicy Number: Repository [id number]: [phone] [id number] [phone] (HP) Date:[id number] [address]PD: 06/10/2018 Secondary MARJORIE N [place] Insurance:HUMANA ROSACHERELLEDOB: Community MEDICARE PPOPolicy [id number] Hospital Number: Repository [id number] Date:[id number] [place] [address] [place] [address]CH: 06/10/2018 Tertiary NOT GIVENUNK [place] Insurance:SELF PAY [facility] Number: Effective Repository Date:2018-05-22 05/14/2018 MARJORIE Primary Insurance:[facility] [facility] [address] UNICOMPPolicy Number: Repository [facility] [id number]: ([phone]) Date:One (HP) [address] [address]YX: 04/02/2018 MARJORIE Primary Insurance:[facility] [facility] [address] UNICOMPPolicy Number: Repository 2[facility]WM[facility] [id number]: ([phone]) Date:One (HP) [address] [address]WM: 02/19/2018 MARJORIE Primary Insurance:[facility] [facility] [address] UNICOMPPolicy Number: Repository 2HWMOUNT[facility], [place] [id number]: ([phone]) Date:One (HP) [address] [address]HL: 11/22/2017 MARJORIE Primary Insurance:[facility] [facility], UNICOMPPolicy Number: [place]ository [place] [id number]: [id number] Date:One Jeramie (TANJA) Margariat[address] [address]DB:
== END 2018-06-16 15:24 | disposition home or self-care (01) ==
PROVIDERS: Emergency Provider Emergency Medicine; Family Provider Internal Medicine; PCP Internal Medicine
DX: M79.652 Pain in left thigh (principal); I10 Essential (primary) hypertension; K21.9 Gastro-esophageal reflux disease without esophagitis; Z79.891 Long term (current) use of opiate analgesic; Z79.899 Other long term (current) drug therapy
CPT/HCPCS: 93971; 99283

== ENCOUNTER 2018-07-17 11:34 | Day surgery (SDC) | payer MEDICARE, SELFPAY ==
[2018-07-17 11:52] VITALS: BP 130/64; PULSE 85; RESP 16; TEMP 36.9; O2SAT 94; BMI 28.0
[2018-07-17 12:09] LABS: Hematocrit 41.3 % (37-47); Mean Corp Hgb Conc 33.9 g/gl (32-36); Mean Corpuscular Hgb 29.8 pg (27.0-32.0); Mean Corpuscular Volume 87.9 fL (81-99); Mean Platelet Vol. 9.2 fl (6.2-12.0); Platelet Count 254 K/mm3 (150-450); RBC Distribution Width CV 11.5 % (11.6-14.6); White Blood Count 4.3 K/mm3 (4.4-11.0)
[2018-07-17 12:10] LABS: Scan Indicated on CBC? Y/N NO
--- NOTE | 2018-07-17 13:15 | EMB_PTH ---
PATIENT: TOBI HOSKINS LOC: [facility] [place] U#:[id number] AGE/SX: 68/F ROOM: RE07/17/[address]: Dr. Sonia Gil, MDDOB: 1950 BED: DIS: 07/17/2018 SPEC #: [id number] RECD: 07/18/18 14:34 STATUS: ALLIE TENA #: [id number] ASHUTOSH: 07/17/18 13:[address]: Sonia Gil DEPT: SURGICAL PATHOLOGY RECD BY: Jan Spring ENTERED: 07/18/18 14:34 SP TYPE: ENDOM BX/C OTHR DR: Dr. Preethi Pulido MD Tissues: Endometrium, NOS Procedures: Surgery Specimen Level IV HEADER OPERATION: Hysterectomy, dilation and curettage, polypectomy PRE-OP DIAGNOSIS: Postmenopausal bleeding TISSUE SUBMITTED: Endometrium, endometrial polyp MICROSCOPIC DIAGNOSIS Endometrium and endometrial polyp, biopsy: Polypoid fragments of endometrium with simple to focal complex hyperplasia without atypia. See comment. AM:leonor 07/21/18 COMMENT The fragments may represent portions of endometrial polyp. Clinical correlation is suggested. Case has been reviewed in consultation with Dr. Looney who concurs with the above diagnosis. IDC:SJ MICROSCOPIC DESCRIPTION Slides are reviewed. GROSS DESCRIPTION Received in fixative is one container labeled with the patient's name and designated endometrial polyp and endometrium. The specimen consists of multiple irregular and somewhat rubbery fragments of jara-white soft tissue that in aggregate measure 5 x 5 x 0.2 cm. The specimen is totally submitted in two cassettes. / AM:leonor 07/18/18 TC:5 [facility]: [id number]
--- NOTE | 2018-07-17 13:37 | DCINST_ITS ---
Discharge Diet: No Restrictions Discharge Activity: Return to Normal Activity, May Shower, May Take a Tub Bath - in 2 weeks. Allergies/Adverse Reactions: Allergies oxycodone HCl [From Percocet] Adverse Reaction (Verified 07/10/18 11:14) Itching Medications to take at Discharge Esomeprazole Mag Trihydrate [Nexium] 40 mg PO DAILY 05/02/13 Hydromorphone HCl [Dilaudid] 8 mg PO Q6H PRN 07/10/18 Hydromorphone HCl [Exalgo] 32 mg PO DAILY 07/10/18 Naloxegol Oxalate [Movantik] 25 mg PO DAILY 07/10/18 Nifedipine [Procardia Xl] 30 mg PO DAILY 07/10/18 Simvastatin [Zocor] 40 mg PO QHS 07/10/18 Zolpidem Tartrate [Ambien (Generic)] 5 mg PO QHS PRN PRN 07/10/18 Primary Care Physician: Preethi Pulido MD [Primary Care Provider] - Test Results: Test results from this visit will be discussed in further detail at your follow- up appointment, if applicable.
--- NOTE | 2018-07-17 14:10 | PCM.OPRPT ---
Report of Operation Date of Procedure: 07/17/18 Pre-Operative Diagnosis: Thickened Endometrium, PMB Post-Operative Diagnosis: same and endometrial polyp Surgery/Procedure Performed:: Hysteroscopy, D&C, Polypectomy with symphion Description of Surgical Findings:: Large endometrial polyp noted arising from fundal aspect. Tubal ostia normal. Endometrium appears atrophic otherwise. Type of Anesthesia:: MAC Specimen's removed: Endometrial curettings and Endometrial polyp- sent together from [facility] resection collection Estimated Blood Loss (mL): 5 Fluids Replaced: 1500 Description of Procedure: Informed consent was obtained the patient was taken the operating room she was placed in supine position. She was given anesthesia. She was then placed in the [facility] where she was prepped and draped in the normal sterile fashion. Bladder drained with straight catheter- 50cc clear yellow urine expelled. At this time the weighted speculum was placed in the posterior fornix of vagina. Single-tooth tenaculum was used to gently grasp the anterior lip the cervix. At this time the uterine cavity was sounded to approximately 6cm. Gentle dilatation was performed once adequate dilatation of the cervix was achieved the hysteroscope using normal saline as a distention medium was placed. large fundal endometrial polyp noted. endometrium otherwise appears atrophic. Tubal ostia visualized. symphion used to perform polypectomy down to base of polyp as well as endometrial tissue sample. This will be sent to pathology for evaluation. Procedure was deemed complete successful there are no complications. Anticipated normal postoperative course. Instrument lap count correct ?2. fluid deficit approximately 500cc Vaginal Sweep was negative. Grafts/Implants Used: none - Complications none - Admit VTE Documentation VTE Present on Admission: Yes VTE Mechan Device Prophylaxis: SCD's VTE Pharm Prophylaxis ordered?: No
--- NOTE | 2018-07-17 14:15 | OP.PCM_ITS ---
Report of Operation Date of Procedure: 07/17/18 Pre-Operative Diagnosis: Thickened Endometrium, PMB Post-Operative Diagnosis: same and endometrial polyp Surgery/Procedure Performed:: Hysteroscopy, D&C, Polypectomy with symphion Description of Surgical Findings:: Large endometrial polyp noted arising from fundal aspect. Tubal ostia normal. Endometrium appears atrophic otherwise. Type of Anesthesia:: MAC Specimen's removed: Endometrial curettings and Endometrial polyp- sent together from [facility] resection collection Estimated Blood Loss (mL): 5 Fluids Replaced: 1500 Description of Procedure: Informed consent was obtained the patient was taken the operating room she was placed in supine position. She was given anesthesia. She was then placed in the [facility] where she was prepped and draped in the normal sterile fashion. Bladder drained with straight catheter- 50cc clear yellow urine expelled. At this time the weighted speculum was placed in the posterior fornix of vagina. Single-tooth tenaculum was used to gently grasp the anterior lip the cervix. At this time the uterine cavity was sounded to approximately 6cm. Gentle dilatation was performed once adequate dilatation of the cervix was achieved the hysteroscope using normal saline as a distention medium was placed. large fundal endometrial polyp noted. endometrium otherwise appears atrophic. Tubal ostia visualized. symphion used to perform polypectomy down to base of polyp as well as endometrial tissue sample. This will be sent to pathology for evaluation. Procedure was deemed complete successful there are no complications. Anticipated normal postoperative course. Instrument lap count correct ?2. fluid deficit approximately 500cc Vaginal Sweep was negative. Grafts/Implants Used: none - Complications none - Admit VTE Documentation VTE Present on Admission: Yes VTE Mechan Device Prophylaxis: SCD's VTE Pharm Prophylaxis ordered?: No
[2018-07-17 14:19] VITALS: BP 130/64; BP 157/71; PULSE 84; RESP 8; TEMP 36.5; O2SAT 97
[2018-07-17 14:30] VITALS: BP 130/64; BP 153/76; PULSE 85; RESP 16; O2SAT 95
[2018-07-17 14:45] VITALS: BP 126/100; BP 130/64; PULSE 89; RESP 16; O2SAT 94
[2018-07-17 14:58] VITALS: BP 130/64; BP 159/78; PULSE 85; RESP 16; TEMP 36.7; O2SAT 93
[2018-07-17 15:16] VITALS: BP 130/64
== END 2018-07-17 15:28 | disposition home or self-care (01) ==
LOC: SDC 11:34 → AC 11:36
PROVIDERS: Family Provider Internal Medicine; PCP Internal Medicine; Referring Provider Obstetrics & Gynecology; Visit Provider Obstetrics & Gynecology
PROC: 0UDB8ZZ Extraction of Endometrium, Via Natural or Artificial Opening Endoscopic (ICD-10-PCS; CPT 58558; principal; 2018-07-17 13:05)
DX: N85.01 Benign endometrial hyperplasia (principal); I25.10 Atherosclerotic heart disease of native coronary artery without angina pectoris; K21.9 Gastro-esophageal reflux disease without esophagitis; I10 Essential (primary) hypertension; E78.00 Pure hypercholesterolemia, unspecified; Z87.891 Personal history of nicotine dependence; Z79.891 Long term (current) use of opiate analgesic; Z79.899 Other long term (current) drug therapy
CPT/HCPCS: 58558; 36415; 85027; 88305; J7120; J2405

== ENCOUNTER 2019-05-08 17:50 | Emergency (ER) | payer MEDICARE, SELFPAY ==
[2019-05-08 17:51] VITALS: BP 149/73; PULSE 102; RESP 18; TEMP 36.7; O2SAT 96; BMI 28.0
--- NOTE | 2019-05-08 18:20 | EKG12_ITS ---
Test Reason : Blood Pressure : / mmHG Vent. Rate : 098 BPM Atrial Rate : 098 BPM P-R Int : 158 ms QRS Dur : 076 ms QT Int : 338 ms P-R-T Axes : 078 042 070 degrees QTc Int : 431 ms Normal sinus rhythm Normal ECG Confirmed by GARETT BENNETT, WILL ([id number]), brands editor STEVENSON ODOM ([id number]) on 05/15/2019 11:18:05 AM Referred By: ISRAEL Confirmed By:WILL BAJWA MD
--- NOTE | 2019-05-08 18:21 | ED.DCSUM_ITS ---
History of Present Illness Chief Complaint: Chest Pain Informant: Patient Onset: Today Context: Gradual Onset Timing: Intermittent - every 5-10 minutes, Lasts - seconds Quality: sharp Current Severity: Severe Maximum Severity: Severe Worsened by: Nothing Relieved by: Nothing Narrative: Patient is a 69-year-old female with history of chronic pain, hypertension and tobacco abuse presenting with chest pain. Patient states she started having chest pain over her left lateral chest today. Is been present all day. The pain will last for couple seconds out of the time radiating across her left chest. It occurring every 5 to 10 minutes. Nothing seems to make it better or worse. Patient notes that she is also been having right shoulder pain past few weeks. She attributed this to her chronic back pain. Patient denies any associated shortness of breath or difficulty breathing. She denies any nausea, vomiting, cough, fever or chills. She had a similar episode 1 month ago but it did not ask for nearly as long and resolve spontaneously so she did not have it evaluated. Patient states she has had a stress test in the past which he thinks was just done routinely. She denies any cardiac history. Patient states she is also especially concerned because 2 of her sisters have within the last 2 months of cancer. One sister had bladder, bone and lung cancer and the other sister had cancer in her chest. Patient is concerned that this could be related to cancer. Her other sister has a history of breast cancer. Patient denies any swelling of her legs. She denies any recent travel or history of DVT/PE. She is not on any hormonal therapy. Past Medical History - Allergies and Home Meds Allergies/Adverse Reactions: Allergies oxycodone HCl [From Percocet] Adverse Reaction (Verified 05/08/19 17:55) Itching Primary Care Physician: Preethi Pulido MD [Primary Care Provider] - Surgical History: - - Surgery on the spine. Smoking Status: Former smoker Review of Systems All systems negative except as indicated Cardiovascular: Reports: Chest pain Physical Exam Vital Signs/Narrative: Vital Signs Temp Pulse Resp BP Pulse Ox 05/08/19 17:51 98.1 F 102 H 18 149/73 H 96 Inital Vital Signs reviewed: Yes General: Well nourished, Well developed, No Acute Distress Head: Normocephalic, Atraumatic Eyes: Perrl, EOMI ENT: Moist mucous membranes, No rhinorrhea Neck: Supple, Nontender Cardiovascular: Regular rate, Regular rhythm, No murmurs Respiratory: No distress, CTA bilaterally, Chest nontender. Negative for: Chest tenderness Abdomen: Soft, Nontender, Nondistended, Normal bowel sounds Back: Nontender, Normal Inspection Extremities: Nontender, No edema Skin: Normal color, No rash Neurological: Alert, Oriented x3, Cranial nerves II-XII grossly intact, Normal Strength, Normal Sensation Psychological: Normal affect, Normal Mood Diagnostic/Tx/Re-eval Chest X-Ray - ED: 2 View, Read by Radiologist, No Acute Disease Clinical Impression(s) from Imaging Studies Chest X-Ray 05/08/19 18:30 IMPRESSION: No acute findings. Hyperinflation suggestive of COPD. Electronically Signed: Aleksey Nur, at 19:28 EDT Tel , Service support , Chest CTA 05/08/19 19:12 IMPRESSION: Normal CTA chest examination, without a demonstrated pulmonary embolism or arterial dissection. Electronically Signed: Marshal King, at 20:18 EDT Tel , Service support , Laboratory Data 05/08/19 05/08/19 05/08/19 17:55 17:55 17:55 WBC 6.2 RBC 5.06 Hgb 15.0 Hct 44.1 MCV 87.2 MCH 29.6 MCHC 34.0 RDW Std Deviation 36.0 RDW Coeff of Zully 11.3 L Plt Count 300 MPV 9.5 Immature Gran % (Auto) 0.200 Neut % (Auto) 54.9 Lymph % (Auto) 36.8 [place] % (Auto) 6.5 Eos % (Auto) 1.0 Baso % (Auto) 0.6 Absolute Neuts (auto) 3.4 Absolute Lymphs (auto) 2.28 Nucleated RBC % 0 D-Dimer Quant (PE/DVT) 1.02 H* Sodium 140 Potassium 3.4 L Chloride 106 Carbon Dioxide 28.0 Anion Gap 6 BUN 11 Creatinine 0.86 Estim Creat Clear Calc 54.81 Est GFR (MDRD) Af Amer 84 Est GFR (MDRD) Non-Af 69 BUN/Creatinine Ratio 12.7 Glucose 164 H Calcium 8.8 Troponin I < 0.015 - Rhythm Strip Rhythm Strip: Sinus Rhythm Rate: 98 Ectopy: None - EKG Initial EKG Interpretation: Sinus Rhythm, - - Normal sinus rhythm at a rate of 98 Normal intervals Normal axis Normal ST segments - Medical Decision Making Patient is evaluated for chest pain is been present all day that waxes and wanes in intensity. She is hemodynamically stable. She has a normal EKG. Patient's heart score is 3 and she is low risk for acute coronary event. Her troponin is normal. Patient does have an elevated d-dimer and a CTA is ordered which is negative for any acute cardiopulmonary process including PE or dissection. Patient is given 1 mg of IV Dilaudid as she is in pain management and normally takes p.o. Dilaudid at home. She is also given aspirin in the emergency room. While patient is in the ER she does complain of some nausea and was given Zofran. The exact cause of patient's chest pain is not clear however I do not suspect acute cardiopulmonary process. Patient is counseled that it could be neuropathic and possibly prodromal for shingles however I think this is less likely based on her description of the pain. Regardless she is counseled to watch for signs of a rash. Patient is counseled on signs and symptoms requiring return to the emergency room. Patient verbalizes agreement and understand this plan. Patient discharged home in stable and improved condition. ED Disposition - Plan for ED Patient: Disposition: Home or Assisted Living Diagnosis: Chest pain of uncertain etiology Instructions: CHEST PAIN, Uncertain Cause Referrals: Preethi Pulido MD [Primary Care Provider] - Additional Instructions: Return to the emergency room if you develop any worsening symptoms such as worsening chest pain, changing chest pain, difficulty breathing, fever or cough. Please follow-up with your primary care doctor as well as your pain management doctor next week.
--- NOTE | 2019-05-08 18:30 | RAD_ITS ---
STUDY: X-RAY CHEST REASON FOR EXAM: Female, 69 years old. Chest pain. TECHNIQUE: 2 view chest. COMPARISON: 11/28/2015 frontal chest. FINDINGS: No evidence of pneumonia, pulmonary edema, pneumothorax or pleural effusion. Mild hyperinflation. Cardiac silhouette, hilar and mediastinal contours with no acute findings. Atherosclerosis of the thoracic aorta. Degenerative osseous changes with no acute osseous abnormality. RAD/Chest PA and Lateral IMPRESSION: No acute findings. Hyperinflation suggestive of COPD. Electronically Signed: Aleksey Nur, at 19:28 EDT Tel , Service support ,
[2019-05-08] MEDS: HYDROmorphone 1 MG/ML Syringe IV (18:31)
[2019-05-08] MEDS: Aspirin 81 MG TAB.CHEW 324 MG PO (18:31)
[2019-05-08 18:36] LABS: Absolute Lymphocyte Count 2.28 X10^3/uL (0.83-4.51); Absolute Neutrophil Count 3.4 X10^3/uL (2.0-7.7); Basophil# 0.04 X10^3/uL; Basophil% 0.6 % (0-1); Eosinophil# 0.06 X10^3/uL; Hematocrit 44.1 % (37-47); Lymphocyte # 2.28 X10^3/ul (4.0); Lymphocyte % 36.8 % (19-41); Mean Corpuscular Hgb 29.6 pg (27.0-32.0); Mean Corpuscular Volume 87.2 fL (81-99); Mean Platelet Vol. 9.5 fl (6.2-12.0); Monocyte% 6.5 % (0-10); NRBC Flagged by Analyzer 0 % (0-5); Neutrophil % 54.9 % (47-70); Platelet Count 300 K/mm3 (150-450); RBC Distribution Width CV 11.3 % (11.6-14.6); Red Blood Count 5.06 M/mm3 (4.2-5.4); White Blood Count 6.2 K/mm3 (4.4-11.0)
[2019-05-08 18:43] LABS: D-Dimer Quantitative (DVT/PE) 1.02 FEU/ug/m (0.27-0.49)
[2019-05-08 18:44] VITALS: O2SAT 95
--- NOTE | 2019-05-08 18:44 | ED.RN ---
ddimer 1.02 called from [address] lab dr craig aware
[2019-05-08 18:51] LABS: Anion Gap 6 (5-15); BUN 11 mg/dL (7-18); BUN/Creat Ratio 12.7 RATIO (10-20); Calcium,Total 8.8 mg/dL (8.5-10.1); Chloride 106 mmol/L (98-107); Creatinine, Serum 0.86 mg/dL (0.55-1.02); EST Glomerular Filtration Rate 69 mL/min (>60); Est Glom Filt Rate - Afr Amer 84 mL/min (>60); Estimated Creatinine Clearance 54.81 ml/min; Glucose 164 mg/dL (74-106); Potassium 3.4 mmol/L (3.5-5.1); Sodium Level 140 mmol/L (136-145)
[2019-05-08 18:56] VITALS: BP 142/66
[2019-05-08 19:08] VITALS: BP 142/66; PULSE 86; RESP 14; O2SAT 95
--- NOTE | 2019-05-08 19:12 | CT_ITS ---
STUDY: CTA CHEST REASON FOR EXAM: Female, 69 years old. Pain RADIATION DOSAGE (If Supplied By Facility): CTDIvol = ( 6.53 ) mGy, DLP = ( 390.34 ) mGycm TECHNIQUE: The examination was performed with the intravenous administration of IV Isovue 370 100. Post-processing of the angiographic images was performed, with multiplanar reformation and 3D reconstruction. Individualized dose optimization techniques were used for this CT. COMPARISON: None. FINDINGS: Normal enhancement of the main pulmonary artery and right and left pulmonary arteries. Normal enhancement of the bilateral peripheral pulmonary arteries. There is no demonstrated pulmonary embolism. Normal thoracic aorta and visualized great vessels. There is no demonstrated aortic dissection. Normal heart and pericardium. Normal mediastinum. Normal hilar regions. Normal visualized trachea and bronchi. The lungs are well expanded. Normal pulmonary parenchyma. Normal pleura. Normal chest wall structures. Normal osseous structures. Normal visualized upper abdomen. CT/CTA Chest W/WO Contrast IMPRESSION: Normal CTA chest examination, without a demonstrated pulmonary embolism or arterial dissection. Electronically Signed: Marshal King, at 20:18 EDT Tel , Service support ,
[2019-05-08] MEDS: Ondansetron 4 MG/2 ML Vial IV (19:25)
[2019-05-08 20:34] VITALS: BP 134/52; PULSE 80; RESP 18; O2SAT 94
[2019-05-08 21:00] VITALS: BP 134/52; PULSE 82; RESP 16; O2SAT 94
== END 2019-05-08 21:01 | disposition home or self-care (01) ==
PROVIDERS: Emergency Provider Emergency Medicine; Family Provider Internal Medicine; PCP Internal Medicine
DX: R07.9 Chest pain, unspecified (principal); I10 Essential (primary) hypertension; G89.29 Other chronic pain; M54.9 Dorsalgia, unspecified; Z87.891 Personal history of nicotine dependence
CPT/HCPCS: 71046; 71275; 80048; 84484; 85025; 85379; 93005; 96374; 96375; 99284; Q9967; A4216; J2405

== ENCOUNTER 2019-11-07 23:31 | Emergency (ER) | payer MEDICARE, SELFPAY ==
[2019-11-07 23:32] VITALS: BP 125/90; PULSE 100; RESP 18; TEMP 36.7; O2SAT 96; BMI 28.5
--- NOTE | 2019-11-07 23:43 | RAD_ITS ---
STUDY: X-RAY CHEST REASON FOR EXAM: Female, 69 years old. C/O MID CHEST PAIN THAT GOES INTO HER UPPER BACK TECHNIQUE: Single AP portable view of the chest. COMPARISON: 05/08/2019. FINDINGS: The lungs are clear and expanded. There is no demonstrated pleural abnormality. Normal size heart. Normal mediastinum and mihir. Normal visualized pulmonary arteries. There is atherosclerotic calcification of the aortic arch with tortuosity. There are diffuse degenerative changes of the visualized thoracic spine. There is degenerative osteoarthritis of the bilateral shoulders. There is no demonstrated abnormality of the visualized soft tissue structures of the upper abdomen. RAD/Chest 1 View (Portable) IMPRESSION: No acute cardiopulmonary disease. Electronically Signed: Jennifer Rivas MD at 0:55 EDT , Service support ,
--- NOTE | 2019-11-07 23:43 | EKG12_ITS ---
Test Reason : Blood Pressure : / mmHG Vent. Rate : 090 BPM Atrial Rate : 090 BPM P-R Int : 160 ms QRS Dur : 084 ms QT Int : 362 ms P-R-T Axes : 079 048 076 degrees QTc Int : 442 ms Normal sinus rhythm Normal ECG Confirmed by HILARY CHACON MD ([id number]), editor trade journal STEVENSON ODOM ([id number]) on 11/10/2019 9:05:55 AM Referred By: Confirmed By:HILARY CHACON MD
--- NOTE | 2019-11-07 23:45 | ED.DCSUM_ITS ---
- ER Visit Summary Date of Service: 11/07/19 Chief Complaint: Mid epigastric abdominal pain radiating to her back and shoulders History of Present Illness: The patient is a [address] of hypertension, high cholesterol. Also prior cholecystectomy, back surgery and hysterectomy. Patient states last evening she got onset of midepigastric abdominal pain. At times it radiates to her shoulders at her times or radiate to her legs. Said it radiates straight through to her back. She is never anything like this before. Associated nausea and vomiting. No diarrhea. No fever. No recent weight loss. No shortness of breath. Not associated with exertion. She has no history of cardiac disease. No history of pancreatitis. Physical Examination: Older female complaining of epigastric pain. Vital signs are stable and afebrile. H EENT exam normal. Moist with membranes. Neck non tender. No JVD. Lungs clear to auscultation bilaterally. Heart regular rhythm rate about 90 no murmur. Chest wall nontender. Abdomen soft. Nondistended. Normal bowel sounds no peritoneal signs. She points to her epigastric region high up near her xiphoid process but there is no reproducible pain. Right upper right lower quadrant unremarkable. There is no pulsatile mass. No peritoneal signs. She is moving all 4 extremities. Calves are nontender without edema. Normal motor strength and sensation. Equal symmetrical radial pulses. Normal advertising copywriter strength. Neurologically she is awake alert with no focal motor deficits. Back exam is unremarkable nontender. Well-healed prior lumbar surgery from the past. Test Results: EKG shows a sinus rhythm rate of 90 with no signs of WI or ischemia. Chest x-ray 1 view read by myself shows a normal cardiac silhouette mediastinum. Read as normal. CBC white count of 3.6. Hemoglobin 13. Chemistries normal normal creatinine gap. Liver enzymes bilirubin normal. Alk phos slightly elevated 152 ALT 339 and AST 132. No old labs available for comparison. Lipase normal. Troponin normal. CAT scan of the abdomen pelvis with IV contrast only shows no acute abnormality. This was read by the radiologist and reviewed by me. Status post cholecystectomy. Mild biliary distention most likely from the prior surgery. Normal appendix. No bowel obstruction. Normal pancreas. A second EKG was obtained and again showed a normal sinus rhythm with no acute signs of ischemia. Clinically I do not feel that this is cardiac. On repeat exam at 1:06 AM she still having pain. She will be given additional morphine and Zofran. A CAT scan of the abdomen and pelvis is being obtained. I discussed all test results with the patient. Explained her right arm a specific cause of her pain. Repeat exam is unchanged. She is improving with the pain medication. Emergency Department Course and Treatment: Older female with epigastric abdominal pain. Treated with morphine and Zofran. Differential diagnosis would include pancreatitis, gastritis, atypical cardiac etiology, AAA versus other etiologies. Exam is benign. Treatment Plan: Follow-up with your doctor. She has home pain medication. She is on Dilaudid at home for her back. Disposition: Discharge Impression: Acute epigastric abdominal pain of uncertain etiology This note was generated with [employer] dictation software. It may contain incorrect words, spelling, and punctuation that were not noted in review of the chart prior to signing ED Disposition - Plan for ED Patient: Referrals: Preethi Pulido MD [Primary Care Provider] -
[2019-11-07] MEDS: Ondansetron 4 MG/2 ML Vial IV (23:53)
[2019-11-07] MEDS: 0.9% Normal Saline 1,000 ML 150 ML IV (23:54)
[2019-11-07] MEDS: morphine 8 MG/ML Syringe 6 MG IV (23:54)
[2019-11-07 23:59] LABS: Absolute Lymphocyte Count 1.18 X10^3/uL (0.83-4.51); Basophil# 0.02 X10^3/uL; Basophil% 0.6 % (0-1); Eosinophil# 0.02 X10^3/uL; Eosinophils% 0.6 % (0-5); Hematocrit 41.9 % (37-47); Hemoglobin 13.7 g/dL (12.0-15.0); Lymphocyte # 1.18 X10^3/ul (4.0); Lymphocyte % 32.5 % (19-41); Mean Corp Hgb Conc 32.7 g/dL (32-36); Mean Corpuscular Hgb 28.8 pg (27.0-32.0); Mean Corpuscular Volume 88.2 fL (81-99); Mean Platelet Vol. 9.5 fl (6.2-12.0); Monocyte# 0.44 X10^3/uL; Monocyte% 12.1 % (0-10); NRBC Flagged by Analyzer 0 % (0-5); Neutrophil # 1.96 X10^3/uL (2.7-7.7); Neutrophil % 53.9 % (47-70); Platelet Count 204 K/mm3 (150-450); RBC Distribution Width CV 11.8 % (11.6-14.6); RBC Distribution Width SD 37.3 fl (35.1-43.9); Red Blood Count 4.75 M/mm3 (4.2-5.4); White Blood Count 3.6 K/mm3 (4.4-11.0)
[2019-11-08 00:18] LABS: Anion Gap 4 (5-15); BUN 12 mg/dL (7-18); BUN/Creat Ratio 15.4 RATIO (10-20); Calcium,Total 9.4 mg/dL (8.5-10.1); Chloride 101 mmol/L (98-107); Creatinine, Serum 0.78 mg/dL (0.55-1.02); EST Glomerular Filtration Rate 78 mL/min (>60); Est Glom Filt Rate - Afr Amer 95 mL/min (>60); Estimated Creatinine Clearance 47.14 ml/min; Glucose 104 mg/dL (74-106); Lipase 78 U/L (73-393); Potassium 3.6 mmol/L (3.5-5.1); Sodium Level 136 mmol/L (136-145)
[2019-11-08 00:25] LABS: AST(SGOT) 132 U/L (15-37); Alanine Aminotransfer ALT/SGPT 339 U/L (13-56); Albumin, Serum 3.9 g/dL (3.2-5.0); Alkaline Phosphatase 152 U/L (45-117); Bilirubin, Direct 0.15 mg/dL (0.00-0.30); Globulin 3.5 g/dL (2.2-4.2); Protein, Total 7.4 g/dL (6.4-8.2)
--- NOTE | 2019-11-08 01:07 | CT_ITS ---
STUDY: CT ABDOMEN AND PELVIS WITH CONTRAST REASON FOR EXAM: Female, 69 years old. EPIGASTRIC PAIN, MID UPPER ABD PAIN THAT RADIATES TO BACK, LEG SORENESS, HX SPINAL FUSION, LESION ON PANCREAS AND HTN RADIATION DOSAGE (If Supplied By Facility): CTDIvol = ( 15.11 ) mGy, DLP = ( 664.25 ) mGycm TECHNIQUE: Transaxial images were obtained from the dome of the diaphragm to the symphysis pubis without oral contrast. IV 100mL Isovue-370 was administered. Sagittal and coronal images were reconstructed. Individualized dose optimization techniques were used for this CT. COMPARISON: 11/24/2010. FINDINGS: The visualized lung bases are unremarkable. The visualized portions of the heart are within normal limits. Normal liver. There is non-visualization of the gallbladder, suggestive of prior cholecystectomy. Differential diagnosis includes severe contraction of the gallbladder. There is mild central intrahepatic biliary distention. Normal spleen. Normal pancreas. Normal bilateral adrenal glands. Normal right kidney. Normal left kidney. Normal visualized stomach. Normal small intestine. Normal colon. The appendix is visualized and appears normal. There is diffuse atherosclerotic calcification of the abdominal aorta, without a demonstrated aneurysm, maximum diameter of the aorta measuring 2.5 x 2.5 cm. Normal inferior vena cava. Normal retroperitoneum. Normal urinary bladder. The uterus is anteverted. Tortuous vessels varicosities along the bilateral adnexal regions and uterus, does not exclude pelvic congestion syndrome. Normal abdominal wall. The patient is status post posterior fusion at L4 on L5. CT/Abdomen/Pelvis W IV Cont ONLY IMPRESSION: Diverticulosis with no signs of diverticulitis. No acute appendicitis or bowel obstruction. Suggestion of prior cholecystectomy with nonspecific distention of the biliary system. Clinical correlation recommended. Electronically Signed: Jennifer Rivas MD at 2:13 EDT , Service support ,
[2019-11-08] MEDS: morphine 8 MG/ML Syringe 6 MG IV (01:23)
[2019-11-08] MEDS: Ondansetron 4 MG/2 ML Vial IV (01:23)
[2019-11-08 02:15] VITALS: O2SAT 96
[2019-11-08 02:27] VITALS: O2SAT 80
--- NOTE | 2019-11-08 02:44 | EKG12_ITS ---
Test Reason : REPEAT EKG Blood Pressure : / mmHG Vent. Rate : 098 BPM Atrial Rate : 098 BPM P-R Int : 164 ms QRS Dur : 084 ms QT Int : 346 ms P-R-T Axes : 072 029 056 degrees QTc Int : 441 ms Normal sinus rhythm Normal ECG Confirmed by INES BENNETT, HILARY ([id number]), online content editor STEVENSON ODOM ([id number]) on 11/10/2019 9:05:41 AM Referred By: DR CARRINGTON Confirmed By:HILARY CHACON MD
--- NOTE | 2019-11-08 02:46 | ED.DEP ---
ED Disposition - Plan for ED Patient: Disposition: Home or Assisted Living Instructions: ED Abdominal Pain Unkn Cause Fem Referrals: Preethi Pulido MD [Primary Care Provider] - 2 Days Additional Instructions: Your test tonight are unremarkable. Normal blood count, chemistries, pancreas, EKGs and heart enzyme. Normal CAT scan and chest x-ray. I do not have a specific cause for your pain. Use your pain medication at home. Follow-up with your doctor on Saturday.
[2019-11-08 03:28] VITALS: BP 123/72; PULSE 81; RESP 18; O2SAT 96
== END 2019-11-08 03:37 | disposition home or self-care (01) ==
PROVIDERS: Emergency Provider Emergency Medicine; PCP Internal Medicine
DX: R10.13 Epigastric pain (principal); E78.00 Pure hypercholesterolemia, unspecified; I10 Essential (primary) hypertension; Z79.899 Other long term (current) drug therapy
CPT/HCPCS: 71045; 74177; 80048; 80076; 83690; 84484; 85025; 93005; 96361; 96374; 96375; 96376; 99284; J7030; Q9967; A4216; J2405

== ENCOUNTER 2020-09-23 06:56 | Day surgery (SDC) | payer MEDICARE, SELFPAY ==
--- NOTE | 2020-09-21 09:45 | EKG12_ITS ---
Test Reason : PREOP Blood Pressure : / mmHG Vent. Rate : 091 BPM Atrial Rate : 091 BPM P-R Int : 160 ms QRS Dur : 086 ms QT Int : 358 ms P-R-T Axes : 082 043 066 degrees QTc Int : 440 ms Normal sinus rhythm Normal ECG Confirmed by INES BENNETT, HILARY ([id number]), assistant editor SARAH BETH CALIX ([id number]) on 09/22/2020 1:03:15 PM Referred By: Jorge Myles Confirmed By:HILARY CHACON MD
[2020-09-21 11:08] LABS: Anion Gap 2 (5-15); BUN 10 mg/dL (7-18); Calcium,Total 9.6 mg/dL (8.5-10.1); Chloride 105 mmol/L (98-107); Creatinine, Serum 0.77 mg/dL (0.55-1.02); EST Glomerular Filtration Rate 79 mL/min (>60); Est Glom Filt Rate - Afr Amer 96 mL/min (>60); Glucose 104 mg/dL (74-106); Sodium Level 139 mmol/L (136-145)
[2020-09-23] VITALS (7 sets, daily range): BP systolic 116–149; BP diastolic 61–81; PULSE 83–113; RESP 14–18; TEMP 36.3–36.6; O2SAT 92–95; BMI 27.1
[2020-09-23] MEDS: Lactated Ringers 1,000 ML 100 ML IV ×2 (07:00→10:31)
[2020-09-23] MEDS: Epinephrine (1 mg/ml) 1 MG/ML VIAL (10:37)
[2020-09-23] MEDS: Lidocaine 1% /Epi 1:100 (20ml) 20 ML Vial (10:39)
[2020-09-23] MEDS: BACITRACIN/POLYMYXIN B 15 GM Tube 1 APPLIC (10:40)
--- NOTE | 2020-09-23 11:07 | OP.PCM_ITS ---
Problem List (1) Cholesteatoma, attic Status: Chronic Qualifiers: Laterality: right Qualified Code(s): H71.01 - Cholesteatoma of attic, right ear (2) Mixed conductive and sensorineural hearing loss, unilateral, right ear with restricted hearing on the contralateral side Status: Chronic Report of Operation Date of Procedure: 09/23/20 Pre-Operative Diagnosis: Right chronic cholesteatoma, mixed hearing loss Post-Operative Diagnosis: Same Surgery/Procedure Performed:: Right revision mastoidectomy resulting in radical mastoidectomy Description of Surgical Findings:: Marjorie is a 70-year-old female with chronic right ear drainage with a history of mastoidectomy for cholesteatoma. This is failed conservative management with debridement and antibiotics and revision of her canal wall up mastoidectomy for ongoing attic cholesteatoma and mixed hearing loss was offered and she was eager to proceed. The risk of coronavirus exposure at this time was also discussed and she is agreeable to accept this risk in exchange for treatment of her underlying disease. The risks, alternatives, potential complications, and benefits were discussed at length and any questions answered to the patient and/or caregiver's satisfaction. Witnessed informed consent was obtained in the office, and the patient and/or caregiver was agreeable to proceed. Procedure went as follows: The operative ear had been site marked preoperatively in accordance with the office notes patient exam and history. Th e patient was then placed under general anesthesia and the right ear prepped and draped in usual sterile fashion. The facial nerve monitoring electrodes were then placed in the confirmed to be operational in accordance with the manufacture's directions. The planned postauricular incision site for fascial graft harvest was then injected with 1% lidocaine with 100,000 epinephrine for a total of 4 mL. Through a #5 otic speculum the operative microscope was brought into the field and the external auditory canal and tympanic membrane visualized. The lateral canal wall was then injected with 1% lidocaine with 100,000 epinephrine for a total of 0.5 cc. Using a sickle knife the edge of the cholesteatoma was then sharply resected and withdrawn from the ear canal with a cup forceps. Using a round knife a vascular strip incision was then created and the skin flap developed toward the annulus. A 6 cm incision was then created a 15 blade scalpel posterior to the auricle at the previous injection site. The skin and subcutaneous tissues were then dissected and the posterior auricular muscle sharply transected. The bony dehiscence from her prior mastoidectomy was then identified and from the overlying tissue leaving the mucosal layer intact with the mastoid space. Anteriorly the spine of Daily was identified and further elevation along the canal was then performed and a self-retaining retractor placed. The subfascial plane was then widely developed and a 2 x 2 centimeter portion of loose areolar tissue was then harvested and set aside on a Timmy block for reconstruction of the tympanic membrane. Attention was then turned to the mastoidectomy. Using monopolar cautery a T- shaped incision was then made first along the temporal line and then extending an inferior limb toward the mastoid tip. The periosteum was then elevated posteriorly and superiorly to allow visualization of the mastoid bone. The periosteal elevation was then developed anteriorly to join the previously made ear canal incisions and the vascular strip everted and placed within self- retaining retractors which were then used to hold the area open. Ending with a #6 cutting bur mastoidectomy was then carried out widely saucerizing the mastoid cavity where chronic inflammatory cholesterin debris and inflamed mucosa was encountered on the inferior aspect of the mastoid tip. Jose's septum remained intact additional air cell disease noted deeply within the mastoid tip and extending into the facial recess. The dissection was then carried out along the canal wall and superiorly to join the attic where cholesteatoma was encountered. Using a #4 jeffry dissection was then carried out to the facial nerve which was identified and preserved along its length. The incus was noted to be absent. The stapes superstructure was intact and encased in scar which was sharply freed. Using a malleus nipper the body of the malleus was then freed from the long process and removed from the middle ear cleft. The posterior canal wall was then taken down to join the ear canal with the mastoid cavity. The dissection was then carried out along the facial recess and the chorda tympani having been involved in the chronic inflammation was then sacrificed and the facial ridge taken down along the facial nerve and a smooth mastoid cavity then developed. The mastoid tip was then amputated reducing the inferior volume of the mastoid cavity. Attention was then turned to reconstruction of the tympanic membrane. The middle ear cleft was then filled with Gelfoam packing material after removal of the epinephrine soaked cotton balls. The previously harvested graft tissue was then placed in an underlay fashion ensuring that it completely covered the tympanic membrane remnant. The posterior portion was then overlying the stapes capitulum and the facial nerve leaving the attic and mastoid exteriorized into the mastoid cavity. Additional Gelfoam material applied laterally to hold the composite tissue graft in place. Bacitracin ointment was then applied to secure the material. A wide meatoplasty was then created and the postauricular incision then closed with interrupted 3-0 Vicryl sutures everting the soft tissues into the inferior and posterior mastoid further reducing its size and followed by a running 5-0 Monocryl suture to the skin. An Ambrus ear pack was then placed to secure the meatal plasty opening. The patient then cleaned of prep solution and the facial nerve monitoring electrodes removed. The patient was then returned to anesthesia, revived and extubated without complication having tolerated the procedure well. Type of Anesthesia:: General Anesthesiologist: Jorge Tejeda Special Medications: none Specimen's removed: cholesteatoma right middle ear Drains: none Estimated Blood Loss (mL): 20 mL Fluids Replaced: 1300 mL Grafts/Implants Used: none - Complications none - Admit VTE Documentation VTE Present on Admission: No VTE Mechan Device Prophylaxis: SCD's VTE Pharm Prophylaxis ordered?: No
--- NOTE | 2020-09-23 11:24 | DCINST_ITS ---
- Discharge Diagnoses Current Active Problems: Current Active and Chronic Problems Cholesteatoma, attic (Chronic) Mixed conductive and sensorineural hearing loss, unilateral, right ear with restricted hearing on the contralateral side (Chronic) You will use the following diet at home:: Regular Discharge Activity: Return to Normal Activity, May not drive while taking narcotic pain medications. Call your doctor if your incision/area has: Sudden Increased Bleeding, Increased Pain/ Swelling, Foul Smelling Discharge Call your doctor if you observe: Fever of 101 or Higher, Uncontrolled pain Allergies/Adverse Reactions: Allergies oxycodone HCl [From Percocet] Adverse Reaction (Verified 09/23/20 07:20) Itching Medications to take at Discharge Esomeprazole Mag Trihydrate [Nexium] 40 mg PO DAILY 05/02/13 Hydromorphone HCl [Dilaudid] 20 mg PO Q6H PRN 07/10/18 Naloxegol Oxalate [Movantik] 25 mg PO DAILY 07/10/18 Nifedipine [Procardia Xl] 30 mg PO DAILY 07/10/18 Simvastatin [Zocor] 40 mg PO QHS 07/10/18 Zolpidem Tartrate [Ambien] 5 mg PO QHS PRN PRN 07/10/18 Ascorbic Acid [Vitamin C] 500 mg PO DAILY@0800 09/16/20 Aspirin E.C. [Ecotrin] 81 mg PO DAILY@0800 09/16/20 Cholecalciferol (Vitamin D3) [Vitamin D3] 25 mcg PO DAILY 09/16/20 Hyslinga 30 mg PO DAILY 09/16/20 L.acidoph,Paracasei, B.lactis [Probiotic] 1 ea PO DAILY 09/16/20 Levsin 0.125 mg PO Q4H PRN PRN 09/16/20 Magnesium 250 mg PO DAILY 09/16/20 Multivitamin [Daily Value] 1 ea PO DAILY 09/16/20 Primary Care Physician: Preethi Pulido MD [Primary Care Provider] - Test Results: Test results from this visit will be discussed in further detail at your follow- up appointment, if applicable. Please Follow Up With: Jorge Myles MD When: 5 days
[2020-09-23] MEDS: BENZOCAINE/MENTHOL 1 LOZENGE 2 LOZENGE MUCOUS MEM (11:28)
[2020-09-23] MEDS: Ibuprofen 200 MG Tablet 400 MG PO (11:54)
== END 2020-09-23 13:27 | disposition home or self-care (01) ==
LOC: SDC 06:57 → AC 06:58
PROVIDERS: PCP Internal Medicine; Referring Provider Otolaryngology; Visit Provider Otolaryngology
PROC: (CPT 69511; principal; 2020-09-23 08:15)
DX: H90.71 Mixed conductive and sensorineural hearing loss, unilateral, right ear, with unrestricted hearing on the contralateral side (principal); H71.01 Cholesteatoma of attic, right ear; K21.9 Gastro-esophageal reflux disease without esophagitis; M19.90 Unspecified osteoarthritis, unspecified site; E78.5 Hyperlipidemia, unspecified; I10 Essential (primary) hypertension; Z79.899 Other long term (current) drug therapy; Z87.891 Personal history of nicotine dependence; Z20.822 Contact with and (suspected) exposure to COVID-19
CPT/HCPCS: 00190; 69511; 36415; 80048; 87426; 93005; C9803; J7120; J2405; J3490

== ENCOUNTER 2020-10-06 16:59 | Outpatient (RCR) | payer MEDICARE, SELFPAY ==
[2020-09-23 07:21] VITALS: BMI 27.1
[2020-10-06] MEDS: COVID-19 VACC, MRNA(PFIZER)/PF 30 MCG/0.3 ML SYRINGE IM (16:02)
[2020-10-27] MEDS: COVID-19 VACC, MRNA(PFIZER)/PF 30 MCG/0.3 ML SYRINGE IM (15:29)
== END 2020-10-11 23:59 ==
LOC: IMMUN 16:59
PROVIDERS: PCP Internal Medicine; Visit Provider Family Medicine
DX: Z23 Encounter for immunization (principal)
CPT/HCPCS: 0001A; 0002A; 91300

== ENCOUNTER 2021-06-18 13:18 | Emergency (ER) | payer MEDICARE, SELFPAY ==
[2021-06-18 13:19] VITALS: BP 189/77; PULSE 99; RESP 16; TEMP 36.6; O2SAT 96; BMI 26.6
--- NOTE | 2021-06-18 13:38 | EDS_ITS ---
HPI History of Present Illness Chief Complaint: Other, Pain/Inj Informant: patient Onset/Context/Timing Onset: Weeks (1) Context: Gradual Onset Timing: Continuous Quality: sore Location: right jaw Current Severity: Severe Maximum Severity: Severe Worsened by: palpation, chewing/moving jaw Relieved by: nothing Associated Symptoms Associated Symptoms: localized swelling Narrative Narrative: Gradual onset of a painful swollen area right jaw on face. States it really started hurting within the last day or 2 but it seems like it has been growing over the last week. She wears dentures and is edentulous. She denies any fevers or chills. No discharge from her face or intraorally. She denies any neck pain or pain elsewhere. [facility] Medical History (Updated 06/18/21 @ 13:[address] Delfin Sullivan MD) Cholesteatoma, attic Chronic lower back pain Mixed conductive and sensorineural hearing loss, unilateral, right ear with restricted hearing on the contralateral side Home Medications esomeprazole magnesium [Nexium] 40 mg PO DAILY 05/02/13 [History Last Taken 09/23/20 05:45 40 MG] hydromorphone [Dilaudid] 20 mg PO Q6H PRN 07/10/18 [History Last Taken Unknown] naloxegol [Movantik] 25 mg PO DAILY 07/10/18 [History Last Taken Unknown] nifedipine [Procardia XL] 30 mg PO DAILY 07/10/18 [History Last Taken 09/23/20 05:45 30 MG] simvastatin [Zocor] 40 mg PO QHS 07/10/18 [History Last Taken Unknown] zolpidem 5 mg PO QHS PRN PRN 07/10/18 [History Last Taken Unknown] Hyslinga 30 mg PO DAILY 09/16/20 [History Last Taken 09/23/20 05:45 30 MG] L.acidoph, paracasei,B. lactis 1 ea PO DAILY 09/16/20 [History Last Taken Unknown] Levsin 0.125 mg PO Q4H PRN PRN 09/16/20 [History Last Taken Unknown] ascorbic acid (vitamin C) 500 mg PO DAILY@0800 09/16/20 [History Last Taken Unknown] aspirin 81 mg PO DAILY@0800 09/16/20 [History Last Taken Unknown] cholecalciferol (vitamin D3) 25 mcg PO DAILY 09/16/20 [History Last Taken Unknown] magnesium 250 mg PO DAILY 09/16/20 [History Last Taken Unknown] multivitamin 1 ea PO DAILY 09/16/20 [History Last Taken Unknown] acetaminophen 500 mg PO Q4H PRN PRN tab 09/23/20 [Rx Last Taken Unknown] ibuprofen 400 mg PO Q6H PRN PRN tab 09/23/20 [Rx Last Taken Unknown] amoxicillin 875 mg PO BID #20 tab 06/18/21 [Rx Last Taken Unknown] fluconazole 150 mg PO X1 #1 tab 06/18/21 [Rx Last Taken Unknown] Allergy/AdvReac Type Severity Reaction Status Date / Time oxycodone HCl [From Percocet] AdvReac Itching Verified 06/18/21 13:21 Social History Smoking Status: Former smoker ROS ROS ED Constitutional Constitutional ED: Denies chills or fever(s) Eyes Eyes: Denies change in vision or double vision ENT ENT ED: Reports as per HPI and facial pain; Denies sinus pain or throat swelling Cardiovascular Cardiovascular: Denies chest pain or palpitations Respiratory/Chest Respiratory/Chest: Denies cough or dyspnea Integumentary Reports as per HPI and abscess; Denies rash Neurologic Neurologic: Denies headache(s), paresthesias or weakness EXAM Physical Exam Const Vital Signs: 06/18/21 13:19 06/18/21 13:27 Temperature 97.8 F Temperature Source Temporal Pulse Rate 99 Respiratory Rate 16 Respiratory Effort Normal Non-Labored Respiratory Pattern Normal Blood Pressure 189/77 H Blood Pressure Mean 114 Pulse Ox 96 Oxygen Delivery Method Room Air Positive well nourished and well developed General Appearance ED: well developed and NAD HEENT Face and Sinus: sinuses nontender Teeth and Gingiva: dentures, edentulous and other Other Details: Posterior right mandibular gingiva, there is nidus for infection where the gingiva meets the buccal mucosa externally with severe tenderness, seems to be where the edge of the patient's dentures meets this soft tissue. Throat: posterior oropharynx normal Eyes PERRL and EOMs intact bilaterally Neck no lymphadenopathy and supple Resp normal respiratory effort Neuro oriented x3 and CN's II-XII intact bilaterally Sensorium / Orientation: alert Gait (Neuro): normal gait Psych mental status grossly normal and thought process normal Skin no rashes or lesions noted and no wounds MDM MDM MDM Narrative Medical decision making narrative: Consistent with a dental abscess. I recommend trying to aspirate it although as I discussed with the patient there certainly is a risk of getting nothing. She was amenable to this and antibiotics. I was not able to get any purulence out, recommended warm compresses and gentle massage of the area to see if she can accomplish this on her own while we put her on antibiotics and encourage follow-up. We discussed reasons to return. Procedures Other Procedures Procedure(s): Dental abscess aspiration: After pretreatment with 1 cc 20% benzocaine spray, intraoral aspiration was attempted with no purulence able to be aspirated. Scant amount of bleeding, no complications, tolerated well. Discharge Plan Triage Chief Complaint: Other, Pain/Inj ED Provider: Delfin Sullivan Dx/Rx/DC Orders Clinical Impression: Abscess, dental Instructions: Dental Abscess Prescriptions: New amoxicillin 875 mg tablet 875 mg PO BID Qty: 20 RF: 0 fluconazole 150 mg tablet 150 mg PO X1 Qty: 1 RF: 1 No Action esomeprazole magnesium [Nexium] 40 MG capsule 40 mg PO DAILY RF: 0 hydromorphone [Dilaudid] 8 MG tablet 20 mg PO Q6H PRN (Reason: Pain 1-10 Or Fever) RF: 0 nifedipine [Procardia XL] 30 MG tablet extended release 24hr 30 mg PO DAILY RF: 0 simvastatin [Zocor] 40 MG tablet 40 mg PO QHS RF: 0 zolpidem 5 MG tablet 5 mg PO QHS PRN PRN (Reason: Sleep) RF: 0 naloxegol [Movantik] 25 MG tablet 25 mg PO DAILY RF: 0 multivitamin 1 EACH tablet 1 ea PO DAILY RF: 0 Hyslinga 30 mg PO DAILY RF: 0 Levsin 0.125 mg PO Q4H PRN PRN (Reason: PANCREASIS) RF: 0 aspirin 81 MG tablet 81 mg PO DAILY@0800 RF: 0 ascorbic acid (vitamin C) 500 MG tablet 500 mg PO DAILY@0800 RF: 0 magnesium 250 MG tablet 250 mg PO DAILY RF: 0 cholecalciferol (vitamin D3) 25 MCG tablet 25 mcg PO DAILY RF: 0 L.acidoph, paracasei,B. lactis 1 EACH capsule 1 ea PO DAILY RF: 0 acetaminophen 500 MG tablet 500 mg PO Q4H PRN PRN (Reason: Pain Score 1-5/10) RF: 0 ibuprofen 200 MG tablet 400 mg PO Q6H PRN PRN (Reason: Pain Score 4-10/10) RF: 0 Primary Care Provider: Preethi Pulido Referrals: Preethi Pulido MD [Primary Care Provider] - Dentist,Your [STAFF PHYSICIAN] - 3-5 Days if not improving Disposition Disposition: Home, Self Care
[2021-06-18] MEDS: BENZOCAINE 20% SPRAY 1 EACH MUCOUS MEM (13:49)
== END 2021-06-18 14:10 | disposition home or self-care (01) ==
LOC: ED 13:44
PROVIDERS: Emergency Provider Emergency Medicine; PCP Internal Medicine
DX: K04.7 Periapical abscess without sinus (principal); Z87.891 Personal history of nicotine dependence
CPT/HCPCS: 41800; 99283

== ENCOUNTER 2021-11-29 11:47 | Emergency (ER) | payer MEDICARE, SELFPAY ==
[2021-11-29 11:49] VITALS: BP 129/56; PULSE 93; RESP 18; TEMP 36.1; O2SAT 96; BMI 24.9
--- NOTE | 2021-11-29 12:50 | CT_ITS ---
STUDY: CT BRAIN WITHOUT CONTRAST REASON FOR EXAM: Female, 71 years old. right sided head trauma RADIATION DOSAGE (If Supplied By Facility): CTDIvol = ( 47.06 ) mGy, DLP = ( 907.97 ) mGycm TECHNIQUE: Transaxial CT imaging of the brain was performed without administration of intravenous contrast material. Individualized dose optimization techniques were used for this CT. COMPARISON: 05/02/2013 FINDINGS: Normal soft tissue structures. Normal calvarium. Status post right mastoidectomy. Normal size ventricles and extra-axial spaces for the patient''s age. Normal white matter tracts of the cerebral hemispheres. Normal basal ganglia and thalami. Normal brainstem. Normal cerebellum. There is no intracranial hemorrhage. There are no findings of an acute ischemic infarction. Normal visualized paranasal sinuses. CT/Brain/Head without Contrast IMPRESSION: No acute abnormality. Electronically Signed: Jan Carroll MD at 13:17 EDT ,
[2021-11-29] MEDS: Acetaminophen 325 MG Tablet 650 MG PO (12:57)
--- NOTE | 2021-11-29 12:58 | EDS_ITS ---
HPI HPI - Fall History of Present Illness Chief Complaint: Fall Informant: patient Occured/Mechanism Occurred: Today and Hours Usually ambulates: Without assistance Pain/Injury Pain Location: head and upper extremity Quality of Pain: Sharp Current Severity: Mild Maximum Severity: Mild Associated Symptoms Associated Symptoms: Negative for Parasthesias, Weakness, Loss of function, Inability to ambulate, Loss of consciousness and Amnesia Narrative Narrative: 71-year-old female who was walking the sidewalk lost her balance fell striking her right shoulder right side of her head. Denies any LOC. On no blood thinners. Planing of a headache. Right shoulder pain. Denies any neck pain. She has mild nausea no vomiting. Prior similar symptoms: No Recent Illness/Hospitalization: No PFSH PFSH Medical History Cholesteatoma, attic Chronic lower back pain Mixed conductive and sensorineural hearing loss, unilateral, right ear with restricted hearing on the contralateral side Home Medications esomeprazole magnesium [Nexium] 40 mg PO DAILY 05/02/13 [History Last Taken 09/23/20 05:45 40 MG] hydromorphone [Dilaudid] 20 mg PO Q6H PRN 07/10/18 [History Last Taken Unknown] naloxegol [Movantik] 25 mg PO DAILY 07/10/18 [History Last Taken Unknown] nifedipine [Procardia XL] 30 mg PO DAILY 07/10/18 [History Last Taken 09/23/20 05:45 30 MG] simvastatin [Zocor] 40 mg PO QHS 07/10/18 [History Last Taken Unknown] zolpidem 5 mg PO QHS PRN PRN 07/10/18 [History Last Taken Unknown] Hyslinga 30 mg PO DAILY 09/16/20 [History Last Taken 09/23/20 05:45 30 MG] L.acidoph, paracasei,B. lactis 1 ea PO DAILY 09/16/20 [History Last Taken Unknown] Levsin 0.125 mg PO Q4H PRN PRN 09/16/20 [History Last Taken Unknown] ascorbic acid (vitamin C) 500 mg PO DAILY@0800 09/16/20 [History Last Taken Unknown] aspirin 81 mg PO DAILY@0800 09/16/20 [History Last Taken Unknown] cholecalciferol (vitamin D3) 25 mcg PO DAILY 09/16/20 [History Last Taken Unknown] magnesium 250 mg PO DAILY 09/16/20 [History Last Taken Unknown] multivitamin 1 ea PO DAILY 09/16/20 [History Last Taken Unknown] acetaminophen 500 mg PO Q4H PRN PRN tab 09/23/20 [Rx Last Taken Unknown] ibuprofen 400 mg PO Q6H PRN PRN tab 09/23/20 [Rx Last Taken Unknown] amoxicillin 875 mg PO BID #20 tab 06/18/21 [Rx Last Taken Unknown] fluconazole 150 mg PO X1 #1 tab 06/18/21 [Rx Last Taken Unknown] Allergy/AdvReac Type Severity Reaction Status Date / Time oxycodone HCl [From Percocet] AdvReac Itching Verified 11/29/21 11:48 Social History Smoking Status: Former smoker ROS ROS ED ROS Narrative Nausea post fall. Headache post fall. Review of Systems ROS Unobtainable: Denies due to encephalopathy Constitutional Constitutional ED: Denies fever(s) Eyes Eyes: Denies change in vision ENT ENT ED: Denies ear pain Cardiovascular Cardiovascular: Denies chest pain Respiratory/Chest Respiratory/Chest: Denies dyspnea Gastrointestinal Gastrointestinal: Reports nausea; Denies abdominal pain, diarrhea or vomiting Genitourinary Genitourinary ED: Denies dysuria Musculoskeletal Musculoskeletal: Denies myalgias Integumentary Denies rash Neurologic Neurologic: Reports headache(s); Denies weakness Psychiatric Psychiatric: Denies anxiety or depression Endocrine Endocrinology: Denies polyuria Hematologic/Lymphatic Hematologic/Lymphatic: Denies easy bruising Allergic/Immunologic Allergic/Immunologic ED: Denies urticaria EXAM Physical Exam Narrative Exam Narrative: 71-year-old female vital signs stable afebrile. H EENT exam tenderness to the right side of her scalp. There is no hematoma. No laceration. Pupils are round reactive light. Rest of her scalp is nontender. No facial trauma. C-spine and trachea nontender. Normal range of motion of her neck. Lungs clear to auscultation. Heart regular rate and rhythm no murmur. Chest nontender. Abdomen soft nontender. Pelvic girdle intact. Moving all 4 extremities. Full range of motion. No deformity. She does have tenderness to her right shoulder. She has full flexion-extension supination and pronation of the right elbow and wrist. Left upper and both lower extremities are nontender. There is no shortening or rotation of either hip. Back nontender. Neurologic exam normal. GCS of 15. NIH is 0. Const Vital Signs: 11/29/21 11:49 11/29/21 11:59 Temperature 97 F L Temperature Source Temporal Pulse Rate 93 Respiratory Rate 18 Respiratory Effort Normal Non-Labored Respiratory Depth Normal Blood Pressure 129/56 H Blood Pressure Mean 80 Pulse Ox 96 Oxygen Delivery Method Room Air Room Air Positive well nourished and well developed; Negative for obese, cachectic, contractures or unkempt General Appearance ED: well developed and NAD; Negative for unkempt, cachectic or contractures Nutritional Appearance: Negative for cachectic or obese HEENT Reports normocephalic HEENT Narrative: Right scalp. No hematoma. No laceration. trauma and tenderness; Negative for atraumatic Eyes PERRL and EOMs intact bilaterally General Eye ED: Negative for pale conjunctiva or scleral icterus Neck full ROM, no lymphadenopathy and supple General: Negative for tenderness Chest Wall inspection of chest normal and palpation of chest normal Resp normal respiratory effort, no retractions and clear to auscultation bilaterally Auscultation: Negative for rales, rhonchi or wheezes Cardio regular rate, regular rhythm, S1 normal heart sound, S2 normal heart sound and no murmurs GI non-tender, non-distended and no masses Auscultation: normoactive bowel sounds Palpation: soft; Negative for guarding or rebound tenderness present Back/Spine no CVA tenderness General Back: Negative for CVA tenderness Cervical Spine: Negative for cervical spine tenderness Thoracic Spine / Upper Back: Negative for thoracic spinal tenderness Lumbar Spine / Lower Back: Negative for lumbar spinal tenderness Extremity normal to inspection, full ROM, normal capillary refill, no calf tenderness and no pedal edema Extremity Narrative: Tenderness right shoulder. No deformity. Full range of motion and nontender right elbow. Neuro oriented x3, moves all extremities, no focal motor deficits and no sensory deficits noted [place] Coma Scale: document GCS findings Spontaneous Obeys Commands Oriented 15 Sensorium / Orientation: alert, oriented to person, oriented to place and oriented to time; Negative for orientation impaired or confused Motor Exam: strength 5/5 throughout Psych mental status grossly normal and thought process normal Appearance: Negative for unkempt Skin Skin Narrative: Minor abrasion dorsum left hand. Lesions: no lesions Rashes: no rashes Trauma: abrasion MDM MDM MDM Narrative Medical decision making narrative: Six 11-year-old female fell and struck her head complaining of headache and nausea CAT scan to be obtained. Also complaining of right shoulder pain x-ray to be obtained in the shoulder. I do not expect any fracture dislocation of shoulder because she has normal range of motion. She will be given Tylenol for pain. Repeat exam patient doing well at 2:03 PM. She will be discharged to home. Radiography Diagnostic Testing: Clinical Impression(s) from Imaging Studies Brain CT 11/29/21 12:50 IMPRESSION: No acute abnormality. Electronically Signed: Jan Carroll MD at 13:17 EDT Reading Location ID and State: [id number] / [employer] , Service support , Shoulder X-Ray 11/29/21 13:05 IMPRESSION: Normal x-ray examination of the shoulder. Electronically Signed: Jan Carroll MD at 13:40 EDT , Right shoulder x-ray 3 myself and radiologist shows no acute abnormality. No fracture. No dislocation. CT of the brain no acute abnormality. Read by the radiologist reviewed by me. Discharge Plan Triage Chief Complaint: Fall Other Complaint: Head Injury Wound ED Provider: Dieter Alexander Dx/Rx/DC Orders Clinical Impression: Fall, Head injury, Contusion of right shoulder Instructions: ED Head Injury (Adult), ED Shoulder Contusion Prescriptions: No Action esomeprazole magnesium [Nexium] 40 MG capsule 40 mg PO DAILY RF: 0 hydromorphone [Dilaudid] 8 MG tablet 20 mg PO Q6H PRN (Reason: Pain 1-10 Or Fever) RF: 0 nifedipine [Procardia XL] 30 MG tablet extended release 24hr 30 mg PO DAILY RF: 0 simvastatin [Zocor] 40 MG tablet 40 mg PO QHS RF: 0 zolpidem 5 MG tablet 5 mg PO QHS PRN PRN (Reason: Sleep) RF: 0 naloxegol [Movantik] 25 MG tablet 25 mg PO DAILY RF: 0 multivitamin 1 EACH tablet 1 ea PO DAILY RF: 0 Hyslinga 30 mg PO DAILY RF: 0 Levsin 0.125 mg PO Q4H PRN PRN (Reason: PANCREASIS) RF: 0 aspirin 81 MG tablet 81 mg PO DAILY@0800 RF: 0 ascorbic acid (vitamin C) 500 MG tablet 500 mg PO DAILY@0800 RF: 0 magnesium 250 MG tablet 250 mg PO DAILY RF: 0 cholecalciferol (vitamin D3) 25 MCG tablet 25 mcg PO DAILY RF: 0 L.acidoph, paracasei,B. lactis 1 EACH capsule 1 ea PO DAILY RF: 0 acetaminophen 500 MG tablet 500 mg PO Q4H PRN PRN (Reason: Pain Score 1-5/10) RF: 0 ibuprofen 200 MG tablet 400 mg PO Q6H PRN PRN (Reason: Pain Score 4-10/10) RF: 0 amoxicillin 875 mg tablet 875 mg PO BID Qty: 20 RF: 0 fluconazole 150 mg tablet 150 mg PO X1 Qty: 1 RF: 1 Primary Care Provider: Preethi Pulido Referrals: Preethi Pulido MD [Primary Care Provider] - 1 Week if not improving Activity Restrictions/Additional Instructions: The CAT scan your head and x-ray right shoulder are both unremarkable. Ice to all sore areas. Tylenol for pain. Disposition Disposition: Home, Self Care
--- NOTE | 2021-11-29 13:05 | RAD_ITS ---
STUDY: X-RAY - RIGHT SHOULDER REASON FOR EXAM: Female, 71 years old. fall, shoulder pain TECHNIQUE: 3 view(s) of the shoulder. COMPARISON: None. FINDINGS: Normal glenohumeral articulation. Normal acromioclavicular joint. Normal acromion. Normal humeral head and visualized proximal humerus. The soft tissue structures are unremarkable. Normal visualized pulmonary apex. RAD/Shoulder min 2 Views IMPRESSION: Normal x-ray examination of the shoulder. Electronically Signed: Jan Carroll MD at 13:40 EDT ,
[2021-11-29 14:09] VITALS: RESP 18
== END 2021-11-29 14:17 | disposition home or self-care (01) ==
PROVIDERS: Emergency Provider Emergency Medicine; PCP Internal Medicine; Visit Provider Emergency Medicine
DX: S09.90XA Unspecified injury of head, initial encounter (principal); S40.011A Contusion of right shoulder, initial encounter; M54.50 Low back pain, unspecified; G89.29 Other chronic pain; Y93.01 Activity, walking, marching and hiking; R11.0 Nausea; Z87.891 Personal history of nicotine dependence; Y99.9 Unspecified external cause status; W19.XXXA Unspecified fall, initial encounter; Y92.480 Sidewalk as the place of occurrence of the external cause; Z79.899 Other long term (current) drug therapy
CPT/HCPCS: 70450; 73030; 99283

== ENCOUNTER → 2022-10-12 | Outpatient (CLI) | payer MEDICARE, SELFPAY | END | disposition home or self-care (01) | LOC: LABSPEC 10:32 | PROVIDERS: PCP Internal Medicine; Referring Provider Otolaryngology; Visit Provider Otolaryngology | DX: H92.11 Otorrhea, right ear (principal) | CPT/HCPCS: 87070; 87075; 87205 ==

== ENCOUNTER 2023-07-25 11:38 | Emergency (ER) | payer MEDICARE, SELFPAY ==
[2023-07-25 11:39] VITALS: BP 139/71; PULSE 106; RESP 16; TEMP 36.1; O2SAT 96
[2023-07-25 12:39] LABS: Absolute Neutrophil Count 6.9 X10^3/uL (2.0-7.7); Basophil# 0.01 X10^3/uL; Basophil% 0.1 % (0-1); Hematocrit 42.8 % (37-47); Hemoglobin 14.7 g/dL (12.0-15.0); Lymphocyte % 15.9 % (19-41); Mean Corp Hgb Conc 34.3 g/dL (32-36); Mean Corpuscular Hgb 29.7 pg (27.0-32.0); Mean Corpuscular Volume 86.5 fL (81-99); Mean Platelet Vol. 9.4 fl (6.2-12.0); Monocyte# 0.44 X10^3/uL; NRBC Flagged by Analyzer 0 % (0-5); Neutrophil # 6.91 X10^3/uL (2.7-7.7); Neutrophil % 78.7 % (47-70); Platelet Count 296 K/mm3 (150-450); RBC Distribution Width CV 11.2 % (11.6-14.6); RBC Distribution Width SD 35.5 fl (35.1-43.9); Red Blood Count 4.95 M/mm3 (4.2-5.4); White Blood Count 8.8 K/mm3 (4.4-11.0)
[2023-07-25 12:42] LABS: Anion Gap 7 (5-15); BUN 8 mg/dL (7-18); BUN/Creat Ratio 11.8 RATIO (10-20); Calcium,Total 9.7 mg/dL (8.5-10.1); Chloride 105 mmol/L (98-107); Creatinine, Serum 0.68 mg/dL (0.55-1.02); EST Glomerular Filtration Rate 91 mL/min (>60); Est Glom Filt Rate - Afr Amer 110 mL/min (>60); Glucose 119 mg/dL (74-106); Potassium 3.5 mmol/L (3.5-5.1); Sodium Level 140 mmol/L (136-145)
--- NOTE | 2023-07-25 14:14 | RAD_ITS ---
HISTORY: COUGH. TECHNIQUE: XR Chest 1 View. COMPARISON: 11/07/2019. FINDINGS: CARDIOMEDIASTINAL BORDERS: Cardiac silhouette within normal limits in size. Mediastinal contour unremarkable with calcification of the aortic knob. LUNGS: Radiographically clear. PLEURA: No pleural effusion or pneumothorax seen. OSSEOUS STRUCTURES: Unremarkable. RAD/Chest 1 View (Portable) IMPRESSION: No acute cardiopulmonary process identified. Electronically Signed: Heide Croft MD at 14:58 EST ,
--- NOTE | 2023-07-25 14:36 | EX.ED.DYSGE1 ---
HPI History of Present Illness Chief Complaint: General Illness Informant: patient Narrative Narrative: Patient presents with illness going on for about 10 days. She states she started around [place] with cough. She was seen in urgent care and given cough pills. She then developed profuse diarrhea. That is sort of resolved. It was gone for some days but now started coming back in the last day. She still has a cough. She has myalgias. She has headache. She states it hurts in her back a little bit when she coughs now. But she is not having any neurologic symptoms. It also hurts with moving or twisting. She has the diarrhea but is not having abdominal pain. She is able to eat and drink and is not having nausea or vomiting. She states her appetite is down but she is working hard to keep good p.o. intake. She is here because she is just not getting better after 10 days. [facility] Medical History Cholesteatoma, attic Chronic lower back pain Mixed conductive and sensorineural hearing loss, unilateral, right ear with restricted hearing on the contralateral side Home Medications esomeprazole magnesium 40 mg capsule,delayed release (Nexium) 40 mg PO DAILY GERD 05/02/13 [History Last Taken 09/23/20 05:45 40 MG] hydromorphone 8 mg tablet (Dilaudid) 20 mg PO Q6H PRN Pain 1-10 Or Fever 07/10/18 [History Last Taken Unknown] naloxegol 25 mg tablet (Movantik) 25 mg PO DAILY CONSTIPATION 07/10/18 [History Last Taken Unknown] nifedipine 30 mg tablet,extended release 24 hr (Procardia XL) 30 mg PO DAILY BP 07/10/18 [History Last Taken 09/23/20 05:45 30 MG] simvastatin 40 mg tablet (Zocor) 40 mg PO QHS CHOLESTEROL 07/10/18 [History Last Taken Unknown] zolpidem 5 mg tablet 5 mg PO QHS PRN PRN Sleep 07/10/18 [History Last Taken Unknown] Hyslinga 30 mg PO DAILY PAIN 09/16/20 [History Last Taken 09/23/20 05:45 30 MG] L.acidoph, paracasei,B. lactis 10 billion cell capsule 1 ea PO DAILY 09/16/20 [History Last Taken Unknown] Levsin 0.125 mg PO Q4H PRN PRN PANCREASIS 09/16/20 [History Last Taken Unknown] ascorbic acid (vitamin C) 500 mg tablet 500 mg PO DAILY@0800 09/16/20 [History Last Taken Unknown] aspirin 81 mg tablet,delayed release 81 mg PO DAILY@0800 09/16/20 [History Last Taken Unknown] cholecalciferol (vitamin D3) 25 mcg (1,000 unit) tablet 25 mcg PO DAILY 09/16/20 [History Last Taken Unknown] magnesium 250 mg tablet 250 mg PO DAILY 09/16/20 [History Last Taken Unknown] multivitamin 1 ea PO DAILY 09/16/20 [History Last Taken Unknown] acetaminophen 500 mg tablet 500 mg PO Q4H PRN PRN Pain Score 1-509/23/20 [Rx Last Taken Unknown] ibuprofen 200 mg tablet 400 mg (2 x 200 mg) PO Q6H PRN PRN Pain Score 4-04/3009/23/20 [Rx Last Taken Unknown] amoxicillin 875 mg tablet 875 mg PO BID #20 tabs 06/18/21 [Rx Last Taken Unknown] fluconazole 150 mg tablet 150 mg PO X1 #1 TAB 06/18/21 [Rx Last Taken Unknown] benzonatate 100 mg capsule 200 mg (2 x 100 mg) PO TID PRN PRN Cough #15 CAPSULES 07/25/23 [Rx Last Taken Unknown] Allergy/AdvReac Type Severity Reaction Status Date / Time oxycodone HCl [From Percocet] AdvReac Itching Verified 07/25/23 11:39 Social History Smoking Status: Former smoker ROS ROS ED ROS Narrative A complete review of systems was performed and is negative except as documented in the history of present illness. Some specific details below. Constitutional: She has had some fevers and chills. She has myalgias. EYE: No discharge, visual complaints, or pain. ENT: No difficulty swallowing. No swelling. No pain. No reflux symptoms. CV: No chest pain. She has some pain in her posterior chest spine area with coughing. Respiratory: She has been coughing. No sputum production. She is not actually short of breath. GI: No abdominal pain. No nausea vomiting but she has had diarrhea. It is watery. No recent antibiotics. : No frequency dysuria or hematuria. Musculoskeletal: No recent trauma. She does have myalgias. Skin: No rash. Nondiaphoretic. Neuro: No focal weakness or numbness. Endocrine: No polyuria or polydipsia. EXAM Physical Exam Narrative Exam Narrative: CONSTITUTIONAL: Patient is nontoxic in appearance. The patient looks comfortable. Work of breathing looks normal. HEENT: No notable trauma. Mucous membranes mildly dry. No sinus tenderness. No indication of pain with swallowing. EYES: No conjunctival injection. No proptosis. NECK:No JVD. No stridor. CARDIOVASCULAR: Regular rate at about 90 when I listen. Regular rhythm. No notable murmur. No JVD. RESPIRATORY: No respiratory distress. Breathing is unlabored. But she does cough quite frequently. Not producing anything while I am in the room. She does have coarse breath sounds mostly at the right base. She states this is where it is sore. Even with multiple deep breaths and coughing this does not clear. She also has no known history of DVT PE recent travel surgery or immobilization. The pain is not really pleuritic with breath. It is more pain with a cough. GASTROINTESTINAL: Not distended. Bowel sounds are normal. No tenderness. No guarding. No rebound. No palpable mass. No bruit is heard. GENITOURINARY: No tenderness over the bladder. No CVA tenderness. MUSCULOSKELETAL: Atraumatic. No peripheral edema. No cord. No tenderness along the deep venous system. No asymmetry. No distended veins. No rashes. No pallor or mottling. NEUROLOGICAL: Patient is alert and appropriate. No focal deficit noted. SKIN: No noted rashes. No diaphoresis. PSYCHIATRIC: Patient is calm. Mood is appropriate. Const Vital Signs: 07/25/23 11:39 07/25/23 13:57 07/25/23 13:57 Temperature 97.0 F L Temperature Source Temporal Pulse Rate 106 H Respiratory Rate 16 Respiratory Effort Normal Non-Labored Respiratory Pattern Normal Blood Pressure 139/71 H Blood Pressure Mean 93 Pulse Ox 96 Oxygen Delivery Method Room Air Room Air 07/25/23 14:45 Temperature Temperature Source Pulse Rate 92 Respiratory Rate 18 Respiratory Effort Respiratory Pattern Normal Blood Pressure Blood Pressure Mean Pulse Ox Oxygen Delivery Method MDM MDM MDM Narrative Medical decision making narrative: My independent interpretation of her single AP chest x-ray shows no acute process. Final reading is similar. Patient CBC is normal. Patient's electrolytes are normal other than mild elevation of the glucose at 119. Graph patient's urine shows no sign of infection. Patient's viral studies including influenza COVID and RSV are negative. I talked with the patient. She has been having waxing waning symptoms for a while. But there is no sign of acute process that could be treated with specific meds. She states the cough does keep her up at night. I will try some Tessalon Perles. She states when she gets sick she does not sleep well at night. But she has sleeping pills already at home. We discussed reasons to return and follow-up. She likely has a viral illness nonspecific that we are not able to check. She should resolve on her own. Lab Data Attestation: I reviewed the patient's lab results. Labs: Laboratory Results - last 24 hr 07/25/23 07/25/23 12:10 16:05 WBC 8.8 RBC 4.95 Hgb 14.7 Hct 42.8 MCV 86.5 MCH 29.7 MCHC 34.3 RDW Std Deviation 35.5 RDW Coeff of [place] 11.2 L Plt Count 296 MPV 9.4 Immature Gran % (Auto) 0.300 Neut % (Auto) 78.7 H Lymph % (Auto) 15.9 L [place] % (Auto) 5.0 Eos % (Auto) 0.0 Baso % (Auto) 0.1 Absolute Neuts (auto) 6.9 Absolute Lymphs (auto) 1.40 Nucleated RBC % 0 Sodium 140 Potassium 3.5 Chloride 105 Carbon Dioxide 28.0 Anion Gap 7 BUN 8 Creatinine 0.68 Est GFR (MDRD) Af Amer 110 Est GFR (MDRD) Non-Af 91 BUN/Creatinine Ratio 11.8 Glucose 119 H Calcium 9.7 Urine Color Yellow Urine Clarity Clear Urine pH 7.0 Ur Specific [place] 1.005 Urine Protein Negative Urine Glucose (UA) Normal Urine Ketones Negative Urine Occult Blood Negative Urine Nitrite Negative Urine Bilirubin Negative Urine Urobilinogen Normal Ur Leukocyte Esterase Negative Urine RBC 0 SEEN Urine WBC 0 SEEN Ur Squamous Epith Cells 0 SEEN Urine Bacteria 0 SEEN Urine Mucus 0 SEEN Radiography Diagnostic Testing: Clinical Impression(s) from Imaging Studies Chest X-Ray 07/25/23 14:14 IMPRESSION: No acute cardiopulmonary process identified. Electronically Signed: Heide Croft MD at 14:58 EST , Discharge Plan Triage Chief Complaint: General Illness ED Provider: Howard Walls Dx/Rx/DC Orders Clinical Impression: Acute viral syndrome, Cough, Diarrhea Instructions: ED Viral Syndrome (Adult) Prescriptions: New benzonatate [benzonatate] 100 mg capsule 200 mg PO TID PRN PRN (Reason: Cough) Qty: 15 0RF No Action esomeprazole magnesium [Nexium] 40 MG capsule 40 mg PO DAILY Patient Comments: ACID REFLUX hydromorphone [Dilaudid] 8 MG tablet 20 mg PO Q6H PRN (Reason: Pain 1-10 Or Fever) Patient Comments: PAIN nifedipine [Procardia XL] 30 MG tablet extended release 24hr 30 mg PO DAILY simvastatin [Zocor] 40 MG tablet 40 mg PO QHS zolpidem 5 MG tablet 5 mg PO QHS PRN PRN (Reason: Sleep) naloxegol [Movantik] 25 MG tablet 25 mg PO DAILY multivitamin 1 EACH tablet 1 ea PO DAILY H[place]a 30 mg PO DAILY Levsin 0.125 mg PO Q4H PRN PRN (Reason: PANCREASIS) aspirin 81 MG tablet 81 mg PO DAILY@0800 ascorbic acid (vitamin C) 500 MG tablet 500 mg PO DAILY@0800 magnesium 250 MG tablet 250 mg PO DAILY cholecalciferol (vitamin D3) 25 MCG tablet 25 mcg PO DAILY L.acidoph, paracasei,B. lactis 1 EACH capsule 1 ea PO DAILY acetaminophen 500 MG tablet 500 mg PO Q4H PRN PRN (Reason: Pain Score 1-5/10) 0RF ibuprofen 200 MG tablet 400 mg PO Q6H PRN PRN (Reason: Pain Score 4-10/10) 0RF amoxicillin 875 mg tablet 875 mg PO BID Qty: 20 0RF fluconazole 150 mg tablet 150 mg PO X1 Qty: 1 1RF Primary Care Provider: Preethi Pulido Referrals: Preethi Pulido MD [Primary Care Provider] - 3-5 Days if not improving Disposition Disposition: Home, Self Care
[2023-07-25] MEDS: Ipratropium/Albuterol Sulfate 3 ML AMPUL.NEB INHALATION (14:44)
[2023-07-25 14:45] VITALS: PULSE 92; RESP 18
[2023-07-25] MEDS: 0.9% Normal Saline (1000mL) 1,000 ML 999 ML IV (15:01)
[2023-07-25 16:16] LABS: Bacteria 0 SEEN /hpf (None Seen); Mucous, Urine 0 SEEN /hpf (<or=2+); Red Blood Cells-Urine 0 SEEN /hpf (0-5); Squamous Epithelial Cells - UA 0 SEEN /hpf (5-10); White Blood Cells 0 SEEN /hpf (0-5)
[2023-07-25 16:21] LABS: Color, Urine Yellow (Yellow); Glucose, Dipstick Normal (Normal); Ketone-Dipstick Negative (Negative); Leukocyte Esterase-Dipstick Negative /ul (Negative); Nitrite-Dipstick Negative (Negative); Occult Blood-Urine Negative /ul (Negative); Protein-Dipstick Negative (Negative); Specific Gravity, Urine 1.005 (1.002-1.030); Urine Bilirubin Dipstick Negative (Negative); Urine Clarity Clear (Clear); Urine Urobilinogen Normal (Normal)
[2023-07-25 17:00] VITALS: RESP 16
== END 2023-07-25 17:15 | disposition home or self-care (01) ==
PROVIDERS: Emergency Provider Emergency Medicine; PCP Internal Medicine; Visit Provider Emergency Medicine
DX: B34.9 Viral infection, unspecified (principal); R19.7 Diarrhea, unspecified; R05.9 Cough, unspecified; Z87.891 Personal history of nicotine dependence; M79.10 Myalgia, unspecified site; R51.9 Headache, unspecified
CPT/HCPCS: 71045; 80048; 81001; 85025; 87631; 94640; 99283; J7030; A4216

== ENCOUNTER 2023-10-16 08:59 | Emergency (ER) | payer MEDICARE, SELFPAY ==
[2023-10-16 08:59] VITALS: BP 139/75; PULSE 97; RESP 18; TEMP 36; O2SAT 95; BMI 25.0
[2023-10-16 09:02] VITALS: BP 139/75; PULSE 97; RESP 18; TEMP 36; O2SAT 95
--- NOTE | 2023-10-16 09:22 | EX.ED.DYSGE1 ---
HPI History of Present Illness Chief Complaint: General Illness Detail of Chief Complaint: Cold symptoms for 1 week Informant: patient Narrative Narrative: Patient presents with cold symptoms for a week. Patient has a slight sore throat and cough. Denies fever. She went to urgent care and was referred to the emergency department because last evening she started having some chest discomfort. Pain in her chest worse when she moves or rolls over or takes a deep breath. She denies recent travel or surgery. No history of PE or DVT. She is not anticoagulated. Patient denies sick contacts. [facility] Medical History Cholesteatoma, attic Chronic lower back pain Mixed conductive and sensorineural hearing loss, unilateral, right ear with restricted hearing on the contralateral side Home Medications esomeprazole magnesium 40 mg capsule,delayed release (Nexium) 40 mg PO DAILY GERD 05/02/13 [History Last Taken 09/23/20 05:45 40 MG] hydromorphone 8 mg tablet (Dilaudid) 20 mg PO Q6H PRN Pain 1-10 Or Fever 07/10/18 [History Last Taken Unknown] naloxegol 25 mg tablet (Movantik) 25 mg PO DAILY CONSTIPATION 07/10/18 [History Last Taken Unknown] nifedipine 30 mg tablet,extended release 24 hr (Procardia XL) 30 mg PO DAILY BP 07/10/18 [History Last Taken 09/23/20 05:45 30 MG] simvastatin 40 mg tablet (Zocor) 40 mg PO QHS CHOLESTEROL 07/10/18 [History Last Taken Unknown] zolpidem 5 mg tablet 5 mg PO QHS PRN PRN Sleep 07/10/18 [History Last Taken Unknown] Hyslinga 30 mg PO DAILY PAIN 09/16/20 [History Last Taken 09/23/20 05:45 30 MG] L.acidoph, paracasei,B. lactis 10 billion cell capsule 1 ea PO DAILY 09/16/20 [History Last Taken Unknown] Levsin 0.125 mg PO Q4H PRN PRN PANCREASIS 09/16/20 [History Last Taken Unknown] ascorbic acid (vitamin C) 500 mg tablet 500 mg PO DAILY@0800 09/16/20 [History Last Taken Unknown] aspirin 81 mg tablet,delayed release 81 mg PO DAILY@0800 09/16/20 [History Last Taken Unknown] cholecalciferol (vitamin D3) 25 mcg (1,000 unit) tablet 25 mcg PO DAILY 09/16/20 [History Last Taken Unknown] magnesium 250 mg tablet 250 mg PO DAILY 09/16/20 [History Last Taken Unknown] multivitamin 1 ea PO DAILY 09/16/20 [History Last Taken Unknown] acetaminophen 500 mg tablet 500 mg PO Q4H PRN PRN Pain Score 1-11/2809/23/20 [Rx Last Taken Unknown] ibuprofen 200 mg tablet 400 mg (2 x 200 mg) PO Q6H PRN PRN Pain Score 4-04/3009/23/20 [Rx Last Taken Unknown] amoxicillin 875 mg tablet 875 mg PO BID #20 tabs 06/18/21 [Rx Last Taken Unknown] fluconazole 150 mg tablet 150 mg PO X1 #1 TAB 06/18/21 [Rx Last Taken Unknown] benzonatate 100 mg capsule 200 mg (2 x 100 mg) PO TID PRN PRN Cough #15 CAPSULES 07/25/23 [Rx Last Taken Unknown] Allergy/AdvReac Type Severity Reaction Status Date / Time oxycodone HCl [From Percocet] AdvReac Itching Verified 10/16/23 08:59 Social History Smoking Status: Former smoker ROS ROS ED Review of Systems ROS Unobtainable: other Constitutional Constitutional ED: Reports lethargy; Denies chills, fever(s), sweats or weight loss Eyes Eyes: Denies blurry vision, change in vision or diplopia ENT ENT ED: Denies rhinorrhea or sore throat Cardiovascular Cardiovascular: Reports chest pain; Denies orthopnea or racing heartbeat Respiratory/Chest Respiratory/Chest: Reports cough, dyspnea and dyspnea on exertion; Denies orthopnea or sputum Gastrointestinal Gastrointestinal: Denies abdominal pain, diarrhea, nausea or vomiting Genitourinary Genitourinary ED: Denies dysuria, hematuria or urinary frequency Musculoskeletal Musculoskeletal: Denies arthralgias, back pain, myalgias or neck pain Integumentary Denies abscess, Abrasions or rash Neurologic Neurologic: Denies headache(s) or weakness Psychiatric Psychiatric: Denies anxiety, depression or suicidal thoughts Endocrine Endocrinology: Denies polydipsia, polyphagia or polyuria Hematologic/Lymphatic Hematologic/Lymphatic: Denies easy bleeding, easy bruising or lymphadenopathy Allergic/Immunologic Allergic/Immunologic ED: Denies mouth swelling, tongue swelling or urticaria EXAM Physical Exam Const Vital Signs: 10/16/23 08:59 10/16/23 09:42 10/16/23 09:02 Temperature 96.8 F L 96.8 F L Temperature Source Temporal Temporal Pulse Rate 97 97 Respiratory Rate 18 18 Respiratory Pattern Normal Blood Pressure 139/75 H 139/75 H Blood Pressure Mean 96 96 Pulse Ox 95 95 Oxygen Delivery Method Room Air Room Air 10/16/23 10:47 Temperature 97.6 F L Temperature Source Pulse Rate 66 Respiratory Rate 18 Respiratory Pattern Blood Pressure 134/76 H Blood Pressure Mean 95 Pulse Ox 99 Oxygen Delivery Method Positive well nourished and well developed General Appearance ED: well developed and NAD HEENT Reports TM's clear and moist mucous membranes normocephalic and atraumatic; Negative for trauma or tenderness Tympanic Membrane ED: Yes TM's clear Eyes PERRL and EOMs intact bilaterally General Eye ED: Negative for pale conjunctiva or scleral icterus Neck no lymphadenopathy, supple and no JVD General: Negative for tenderness Chest Wall inspection of chest normal and palpation of chest normal Chest Narrative: Mild tenderness to palpation of the left anterior chest wall and into the mid axillary line that seems to reproduce her pain. Chest: Negative for tenderness Resp normal respiratory effort and clear to auscultation bilaterally Effort and Inspection: Negative for respiratory distress or pain with movement Auscultation: Negative for rhonchi, wheezes or diminished lung sounds Cardio regular rate, regular rhythm, S1 normal heart sound, S2 normal heart sound and no murmurs Peripheral Pulses: pulses 2+ throughout GI normal to inspection, nondistended, normoactive bowel sounds, soft to palpation, non-tender, non-distended and no masses Back/Spine no CVA tenderness and no thoracic nor lumbar tenderness Extremity normal to inspection General Extremety ED: Negative for edema General Extremity: Negative for edema Neuro oriented x3, CN's II-XII intact bilaterally, no sensory deficits noted and gait normal Sensorium / Orientation: awake, alert, oriented to person, oriented to place and oriented to time Motor Exam: strength 5/5 throughout and strength abnormal Psych mental status grossly normal Skin no rashes or lesions noted and no wounds MDM MDM MDM Narrative Medical decision making narrative: Patient presents with cough for about a week. She started experiencing left-sided chest discomfort and was seen at urgent care and referred to the emergency department. Pain in her chest worse with movement. She denies recent travel or surgery. No PE risk factors. Patient had an EKG obtained arrival showed a sinus rhythm with rate of 88 bpm with no acute ST segment changes. COVID flu and RSV testing was negative. Patient had a chest x-ray that was unremarkable. At this time I suspect likely viral URI with chest wall pain. She does not anything for pain for home. She does not want thing for her cough. Lab Data Attestation: I reviewed the patient's lab results. Radiography Diagnostic Testing: Clinical Impression(s) from Imaging Studies Chest X-Ray 10/16/23 09:31 IMPRESSION: No acute abnormality is seen. Stable examination. Electronically Signed: Dustin Castellano MD at 9:42 EDT Reading Location ID and State: [facility] / [place] , Service support , EKG Initial EKG: Attestation: I personally reviewed and interpreted this EKG as follows: Comments: Sinus rhythm with ventricular rate of 88 bpm with no acute ST segment changes Discharge Plan Triage Chief Complaint: General Illness ED Provider: Dolores Geronimo Dx/Rx/DC Orders Clinical Impression: Chest wall pain, Viral URI Instructions: ED URI, Viral, No Abx (Adult), ED Chest Wall Strain Prescriptions: No Action esomeprazole magnesium [Nexium] 40 MG capsule 40 mg PO DAILY Patient Comments: ACID REFLUX hydromorphone [Dilaudid] 8 MG tablet 20 mg PO Q6H PRN (Reason: Pain 1-10 Or Fever) Patient Comments: PAIN nifedipine [Procardia XL] 30 MG tablet extended release 24hr 30 mg PO DAILY simvastatin [Zocor] 40 MG tablet 40 mg PO QHS zolpidem 5 MG tablet 5 mg PO QHS PRN PRN (Reason: Sleep) naloxegol [Movantik] 25 MG tablet 25 mg PO DAILY multivitamin 1 EACH tablet 1 ea PO DAILY Hyslinga 30 mg PO DAILY Levsin 0.125 mg PO Q4H PRN PRN (Reason: PANCREASIS) aspirin 81 MG tablet 81 mg PO DAILY@0800 ascorbic acid (vitamin C) 500 MG tablet 500 mg PO DAILY@0800 magnesium 250 MG tablet 250 mg PO DAILY cholecalciferol (vitamin D3) 25 MCG tablet 25 mcg PO DAILY Graemeacidsebas, adonay,B. lactis 1 EACH capsule 1 ea PO DAILY acetaminophen 500 MG tablet 500 mg PO Q4H PRN PRN (Reason: Pain Score 1-5/10) 0RF ibuprofen 200 MG tablet 400 mg PO Q6H PRN PRN (Reason: Pain Score 4-10/10) 0RF amoxicillin 875 mg tablet 875 mg PO BID Qty: 20 0RF fluconazole 150 mg tablet 150 mg PO X1 Qty: 1 1RF benzonatate [benzonatate] 100 mg capsule 200 mg PO TID PRN PRN (Reason: Cough) Qty: 15 0RF Primary Care Provider: Preethi Pulido Referrals: Preethi Pulido MD [Primary Care Provider] - 3-5 Days Disposition Disposition: Home, Self Care Discharge Date/Time: 10/16/23 10:48
--- NOTE | 2023-10-16 09:31 | RAD_ITS ---
STUDY: X-RAY CHEST REASON FOR EXAM: Female, 73 years old. Dyspnea TECHNIQUE: Single AP portable view of the chest. COMPARISON: Comparison is made with prior study dated July 25, 2023. FINDINGS: The lungs are clear and expanded. There is no demonstrated pleural abnormality. Normal size heart. Normal mediastinum and mihir. Normal visualized pulmonary arteries. There is atherosclerotic calcification of the aortic arch with tortuosity. There are degenerative changes of the visualized thoracic spine. Normal visualized ribs, clavicles, and shoulders. There is no demonstrated abnormality of the visualized soft tissue structures of the upper abdomen. RAD/Chest 1 View (Portable) IMPRESSION: No acute abnormality is seen. Stable examination. Electronically Signed: Dustin Castellano MD at 9:42 EDT ,
--- NOTE | 2023-10-16 09:56 | EKG12_ITS ---
Test Reason : CP/SOB Blood Pressure : / mmHG Vent. Rate : 088 BPM Atrial Rate : 088 BPM P-R Int : 154 ms QRS Dur : 080 ms QT Int : 350 ms P-R-T Axes : 082 044 059 degrees QTc Int : 423 ms Normal sinus rhythm Normal ECG Confirmed by INES BENNETT, HILARY ([id number]), online editor MATTHEW FISH [id number]) on 10/17/2023 8:57:47 AM Referred By: SHEEBA Confirmed By:HILARY CHACON MD
[2023-10-16 10:47] VITALS: BP 134/76; PULSE 66; RESP 18; TEMP 36.4; O2SAT 99
== END 2023-10-16 10:48 | disposition home or self-care (01) ==
PROVIDERS: Emergency Provider Emergency Medicine; PCP Internal Medicine; Visit Provider Emergency Medicine
DX: R07.89 Other chest pain (principal); J06.9 Acute upper respiratory infection, unspecified; Z87.891 Personal history of nicotine dependence
CPT/HCPCS: 71045; 87631; 93005; 99282